=== PATIENT | female | born 1955 | race Caucasian/White ===

== ENCOUNTER 2018-01-18 13:46 | Observation (INO) ==
[2018-01-18 14:35] LABS: Hemoglobin 13.3 g/dL (11.5-15.4); Mean Corpuscular HGB Conc 32.4 g/dL (31.6-35.5); Mean Corpuscular Hemoglobin 25.3 pg (28.0-33.3); Mean Corpuscular Volume 77.9 fL (83.0-100.0); Mean Platelet Volume 10.3 fL (9.4-12.4); Platelet Count 278 K/mcL (140-400); Red Blood Count 5.26 M/mcL (3.82-4.97); Red Cell Distribution Width 13.4 % (11.5-14.5)
[2018-01-18] MEDS ORDERED: Ipratropium/Albuterol Neb 3 ML IH ONE (14:36)
[2018-01-18 14:59] LABS: BUN/Creatinine Ratio 16 (6-26); Blood Urea Nitrogen 11 mg/dL (8-23); Calcium 9.7 mg/dL (8.6-10.3); Carbon Dioxide 25 mEq/L (23-29); Chloride 104 mEq/L (98-107); Glucose 114 mg/dL (70-105); Osmolality,Calculated 288 (280-300); Potassium 3.8 mEq/L (3.5-5.1); Sodium 139 mEq/L (136-145); eGFR For African Americans > 60 (> 60); eGFR For Non-African Americans > 60 (> 60)
--- NOTE | 2018-01-18 14:59 | Emergency Department Note ---
Disposition Clinical Impression: Bronchitis, Elevated troponin Dyspnea Qualifiers: Dyspnea type: unspecified Qualified Code(s): R06.00 - Dyspnea, unspecified Disposition: Admitted As Inpatient Condition: Fair Referrals: Johnny Swartz MD [Primary Care Provider] - Forms: ED Satisfaction Letter Time of Disposition: 16:39 SOB HPI - General Chief Complaint: ED Shortness of Breath/Dyspnea Stated Complaint: tip Time Seen by Provider: 01/18/18 14:15 Source: patient Limitations: no limitations Nursing Notes Reviewed: Yes Vital Signs Reviewed: Yes - History of Present Illness Mrs. Cooley, 62-year-old female, presents from home for evaluation of dyspnea. Onset 3 days ago and progressive. She now has dyspnea with associated chest heaviness at rest. Worse with exertion. Not improved with her home nebulizer or albuterol inhalers. Similar her as prior episode of pneumonia. Patient's history of COPD on home nebulizer and albuterol. No home oxygen. ROS: Positive: As above negative: Arm weakness or tightness, diaphoresis, unusual back pain, - Related Data Home Medications Medication Instructions Recorded Confirmed Ascorbate Calcium [Vitamin C] 500 mg PO DAILY 01/18/18 01/18/18 Biotin 1 mg PO DAILY 01/18/18 01/18/18 Cholecalciferol (D-3) [Vitamin D] 1,000 unit PO DAILY 01/18/18 01/18/18 Escitalopram [Lexapro] 20 mg PO DAILY 01/18/18 01/18/18 Allergies Allergy/AdvReac Type Severity Reaction Status Date / Time No Known Allergies Allergy Verified 01/18/18 16:34 Past Medical History - Past Medical History Medical history: Reports: COPD Psychiatric history: Reports: no psych history ADJUNCT TRAINER history: Reports: no ADJUNCT TRAINER history - Social History Smoking Status: Former smoker Smokeless Tobacco Status: No Alcohol use: Reports: none Drug use: Reports: none Physical Exam - General Limitations: no limitations General appearance: alert, in no apparent distress Course Course Narrative: EKG dated 01/18/18 at 14:09 interpreted as sinus tachycardia with a rate of 113. Normal intervals. Normal axis. Nonspecific ST-T changes. Compared to previous dated 09/22/2016 showed no acute ischemic changes or comparison. Patient has elevation in troponin of 0.04 in the context of no renal dysfunction and no ischemic changes on EKG. Suspect demand ischemia. Aspirin provided. Chest x-ray my review concerning for bronchitis. Will empirically cover with antibiotics. Given patient's cardiac strain likely secondary to her dyspnea, patient's lack of improvement after nebulizer therapy 3-recommend admission for elevated troponin and dyspnea secondary to likely bronchitis. I discussed this with the patient was agreeable with this plan of care. I discussed the patient with the admitting hospitalist, Dr. Vergara, who agrees to accept the patient for continued evaluation and management. Chest X-Ray 01/18/18 14:04 IMPRESSION: No acute process. D/ / Genaro Gayle MD / Genaro Gayle MD Interpreting Provider: Genaro Gayle MD Vital Signs Temperature 98.1 F 01/18/18 13:59 Pulse Rate 100 01/18/18 13:59 Respiratory Rate 22 01/18/18 13:59 Blood Pressure 118/74 01/18/18 13:59 O2 Sat by Pulse Oximetry 95 01/18/18 13:59 Temperature 98.1 F 01/18/18 13:59 Pulse Rate 98 01/18/18 15:41 Respiratory Rate 20 01/18/18 15:41 Blood Pressure 105/62 01/18/18 15:41 O2 Sat by Pulse Oximetry 92 01/18/18 15:41 Oxygen Delivery Oxygen Delivery Room Air Shortness of Breath/Dyspnea - Lab Data Result diagrams: 01/18/18 14:24 01/18/18 14:24 Lab Results 01/18/18 01/18/18 01/18/18 Range/Units 14:24 14:24 14:24 WBC 10.5 (4.3-11.1) K/mcL RBC 5.26 H (3.82-4.97) M/mcL Hgb 13.3 (11.5-15.4) g/dL Hct 41.0 (35.3-44.9) % MCV 77.9 L (83.0-100.0) fL MCH 25.3 L (28.0-33.3) pg MCHC 32.4 (31.6-35.5) g/dL RDW 13.4 (11.5-14.5) % Plt Count 278 (140-400) K/mcL MPV 10.3 (9.4-12.4) fL Sodium 139 (136-145) mEq/L Potassium 3.8 (3.5-5.1) mEq/L Chloride 104 (98-107) mEq/L Carbon Dioxide 25 (23-29) mEq/L BUN 11 (8-23) mg/dL Creatinine 0.68 (0.60-1.20) mg/dL Est GFR ( Amer) > 60 (> 60) Est GFR (Non-Af Amer) > 60 (> 60) BUN/Creatinine Ratio 16 (6-26) Glucose 114 H (70-105) mg/dL Calculated Osmolality 288 (280-300) Lactic Acid 1.4 (0.5-2.2) mmol/L Calcium 9.7 (8.6-10.3) mg/dL Troponin I 0.05 H* (< 0.04) ng/mL B-Natriuretic Peptide (Less than 100) pg/mL 01/18/18 Range/Units 14:24 WBC (4.3-11.1) K/mcL RBC (3.82-4.97) M/mcL Hgb (11.5-15.4) g/dL Hct (35.3-44.9) % MCV (83.0-100.0) fL MCH (28.0-33.3) pg MCHC (31.6-35.5) g/dL RDW (11.5-14.5) % Plt Count (140-400) K/mcL MPV (9.4-12.4) fL Sodium (136-145) mEq/L Potassium (3.5-5.1) mEq/L Chloride (98-107) mEq/L Carbon Dioxide (23-29) mEq/L BUN (8-23) mg/dL Creatinine (0.60-1.20) mg/dL Est GFR ( Amer) (> 60) Est GFR (Non-Af Amer) (> 60) BUN/Creatinine Ratio (6-26) Glucose (70-105) mg/dL Calculated Osmolality (280-300) Lactic Acid (0.5-2.2) mmol/L Calcium (8.6-10.3) mg/dL Troponin I (< 0.04) ng/mL B-Natriuretic Peptide 31 (Less than 100) pg/mL Attestation Statement - Attestation Attestation: I, Brandon Bedoya DO, examined this patient [id number] and my medical decision-making was reviewed with Dr. Sridhar Wilkinson, Resident Physician. I agree with the documented findings, disposition and treatment plan as described except to the extent set forth below. Please see my progress notes for details.
[2018-01-18 15:03] LABS: Troponin I 0.05 ng/mL (< 0.04)
[2018-01-18] MEDS ORDERED: Aspirin 81 MG TAB.CHEW PO ONE (15:06)
--- NOTE | 2018-01-18 15:46 | Emergency Department Note ---
Disposition Clinical Impression: Bronchitis, Elevated troponin Dyspnea Qualifiers: Dyspnea type: unspecified Qualified Code(s): R06.00 - Dyspnea, unspecified Disposition: Admitted As Inpatient Condition: Fair Time of Disposition: 17:11 General Adult HPI - General Chief complaint: ED Shortness of Breath/Dyspnea Stated complaint: tip Time Seen by Provider: 01/18/18 14:15 Source: patient Limitations: no limitations - History of Present Illness Pain Scale: 0 - Related Data Home Medications Medication Instructions Recorded Confirmed Ascorbate Calcium [Vitamin C] 500 mg PO DAILY 01/18/18 01/18/18 Biotin 1 mg PO DAILY 01/18/18 01/18/18 Cholecalciferol (D-3) [Vitamin D] 1,000 unit PO DAILY 01/18/18 01/18/18 Escitalopram [Lexapro] 20 mg PO DAILY 01/18/18 01/18/18 Zolpidem [Ambien] 2.5 - 5 mg PO HS 01/18/18 01/18/18 Allergies Allergy/AdvReac Type Severity Reaction Status Date / Time No Known Allergies Allergy Verified 01/18/18 16:34 Past Medical History - Past Medical History Medical history: Reports: COPD Psychiatric history: Reports: no psych history DAMAGED FREIGHT INSPECTOR history: Reports: no DAMAGED FREIGHT INSPECTOR history - Social History Smoking Status: Former smoker Smokeless Tobacco Status: No Alcohol use: Reports: none Drug use: Reports: none Physical Exam - General Limitations: no limitations General appearance: alert, in no apparent distress Course Vital Signs Temperature 98.1 F 01/18/18 13:59 Pulse Rate 100 01/18/18 13:59 Respiratory Rate 22 01/18/18 13:59 Blood Pressure 118/74 01/18/18 13:59 O2 Sat by Pulse Oximetry 95 01/18/18 13:59 Temperature 98.1 F 01/18/18 13:59 Pulse Rate 98 01/18/18 15:41 Respiratory Rate 20 01/18/18 15:41 Blood Pressure 105/62 01/18/18 15:41 O2 Sat by Pulse Oximetry 92 01/18/18 15:41 Oxygen Delivery Oxygen Delivery Room Air Medical Decision Making - Lab Data Result diagrams: 01/18/18 14:24 01/18/18 14:24 Lab Results 01/18/18 01/18/18 01/18/18 Range/Units 14:24 14:24 14:24 WBC 10.5 (4.3-11.1) K/mcL RBC 5.26 H (3.82-4.97) M/mcL Hgb 13.3 (11.5-15.4) g/dL Hct 41.0 (35.3-44.9) % MCV 77.9 L (83.0-100.0) fL MCH 25.3 L (28.0-33.3) pg MCHC 32.4 (31.6-35.5) g/dL RDW 13.4 (11.5-14.5) % Plt Count 278 (140-400) K/mcL MPV 10.3 (9.4-12.4) fL PT (9.4-12.1) Seconds INR Sodium 139 (136-145) mEq/L Potassium 3.8 (3.5-5.1) mEq/L Chloride 104 (98-107) mEq/L Carbon Dioxide 25 (23-29) mEq/L BUN 11 (8-23) mg/dL Creatinine 0.68 (0.60-1.20) mg/dL Est GFR ( Amer) > 60 (> 60) Est GFR (Non-Af Amer) > 60 (> 60) BUN/Creatinine Ratio 16 (6-26) Glucose 114 H (70-105) mg/dL Calculated Osmolality 288 (280-300) Lactic Acid 1.4 (0.5-2.2) mmol/L Calcium 9.7 (8.6-10.3) mg/dL Troponin I 0.05 H* (< 0.04) ng/mL B-Natriuretic Peptide (Less than 100) pg/mL 01/18/18 01/18/18 Range/Units 14:24 14:24 WBC (4.3-11.1) K/mcL RBC (3.82-4.97) M/mcL Hgb (11.5-15.4) g/dL Hct (35.3-44.9) % MCV (83.0-100.0) fL MCH (28.0-33.3) pg MCHC (31.6-35.5) g/dL RDW (11.5-14.5) % Plt Count (140-400) K/mcL MPV (9.4-12.4) fL PT 11.8 (9.4-12.1) Seconds INR 1.1 Sodium (136-145) mEq/L Potassium (3.5-5.1) mEq/L Chloride (98-107) mEq/L Carbon Dioxide (23-29) mEq/L BUN (8-23) mg/dL Creatinine (0.60-1.20) mg/dL Est GFR ( Amer) (> 60) Est GFR (Non-Af Amer) (> 60) BUN/Creatinine Ratio (6-26) Glucose (70-105) mg/dL Calculated Osmolality (280-300) Lactic Acid (0.5-2.2) mmol/L Calcium (8.6-10.3) mg/dL Troponin I (< 0.04) ng/mL B-Natriuretic Peptide 31 (Less than 100) pg/mL Attestation Statement - Attestation Attestation: I, Brandon Bedoya DO, examined this patient [id number] and my medical decision-making was reviewed with Dr. Sridhar Wilkinson Resident Physician. I agree with the documented findings, disposition and treatment plan as described except to the extent set forth below. Please see my progress notes for details. 62-year-old female presents emergency room for evaluation of shortness of breath and a cough. Patient is a cough for last several days. She does have known COPD does not require oxygen breathing treatments or intervention. Patient has not been ill and has not had any antibiotics in greater than 6 months. Patient denies any travel outside the country. Denies any fevers or chills chest pain headache vision changes nausea vomiting or diarrhea. Patient denies any trauma or injury. She does have a complaint of intermittent cough and some exertional shortness of breath that is consistent with her previous pneumonia and COPD exacerbation. Patient's physical exam is relatively unremarkable. He is atraumatic and reactive oropharynx is patent trachea is midline. No stridor no trismus. Lungs are clear with intermittent coarse breath sounds are heard from the oropharynx. Heart is regular. Abdomen is soft. No signs of pitting edema swelling noted on exam. Patient moves all 4 of her extremities without any issue at this time. Vital signs remain stable. Breathing treatments were given on initial presentation. Chest x-ray EKG and labs will be ordered. BNP and troponin were also be collected. Patient does not have high-risk presentation for COPD exacerbation and may be able to be discharged home with supportive and treatment course is completed. See detailed documentation of the physical exam, medical intervention, medical decision-making and disposition in the resident physician's note. No critical care provider this patient's treatment course at this time. 1535 Patient's troponin is elevated at 0.05. The remainder labs appear to be stable this time. See SCRIPT DEVELOPER and coags are still pending. Aspirin was given. Patient will be treated symptomatically for COPD exacerbation of bronchitis and cardiac strain secondary to the presentation. EKG was reviewed and shows sinus rhythm and is compared to previous EKG on 09/22/16 that shows stable morphology with no acute changes at this time. Patient is otherwise describing no chest pain she just had intermittent shortness of breath and some discomfort when she coughs. Patient will require admission secondary to elevated troponin. Otherwise the patient's workup and evaluation are unremarkable.
[2018-01-18] MEDS ORDERED: Levofloxacin 750 MG/150 ML 750 MG/150 ML BAG IVPB ONE (15:48)
[2018-01-18] MEDS ORDERED: methylPREDNISolone 125 MG/2 ML VIAL IVP ONE (15:48)
[2018-01-18 16:41] LABS: INR 1.1; Prothrombin Time 11.8 Seconds (9.4-12.1)
[2018-01-18] MEDS: Acetaminophen 325 MG TABLET PO PRN (20:21)
--- NOTE | 2018-01-18 20:44 | Internal Med History&Physical ---
Date of Encounter: 01/18/18 Time of Encounter: 20:42 Internal Medicine - H&P: HPI Chief complaint: sob and cough Admitted From: Emergency Dept Plans for Post Hospital Care: Home History of present illness: Ms. Cooley is a 62 year old female Patient with history of COPD, smoking history patient quit a few months ago. Patient presented emergency room with 3 days of progressive shortness of breath with cough sometimes productive of yellow sputum with low-grade fever of temperature 100.8 some chest heaviness when her shortness of breath get worse and was not getting better with breathing treatment patient came into the emergency room and admitted. Chest x ray does not show pneumonia white count is normal Past Med Surg Social Fam HX - Past Medical History Medical history: COPD Psychiatric history: no psych history - Social History Smoking Status: Former smoker Smokeless Tobacco Status: No Alcohol use: none Drug use: none - Family History Father Living Status: Hx Family Cardiac Disorders: Yes (massive [place]) Mother Living Status: Still Living Hx Family Neurologic Disorders: Yes (dementia) Internal Medicine - H&P: Meds Ascorbate Calcium [Vitamin C] 500 mg PO DAILY 01/18/18 [History] Biotin 1 mg PO DAILY 01/18/18 [History] Cholecalciferol (D-3) [Vitamin D] 1,000 unit PO DAILY 01/18/18 [History] Escitalopram [Lexapro] 20 mg PO DAILY 01/18/18 [History] Zolpidem [Ambien] 2.5 - 5 mg PO HS 01/18/18 [History] 3 Allergy/AdvReac Type Severity Reaction Status Date / Time No Known Allergies Allergy Verified 01/18/18 16:34 All Systems PM: A 10-system review of systems was performed and is negative for pertinent findings except as documented above in the HPI. - Constitutional Constitutional: no chills, no fever(s), no night sweats - Constitutional Vitals: Temp Pulse Resp BP Pulse Ox 99.2 F 90 16 109/51 93 01/18/18 19:16 01/18/18 19:16 01/18/18 19:16 01/18/18 19:16 01/18/18 19:16 General appearance: Present: mild distress - Respiratory Respiratory exam: Present: prolonged expiratory phase, rhonchi - GI/Abdominal GI/Abdominal exam: Present: normal bowel sounds, soft, no peritoneal signs. Absent: distended, tenderness - Extremities Exam Extremities exam: Present: warm, radial pulses palpable and symmetrical. Absent : calf tenderness, cyanotic, pedal edema - Neurological Exam Neurological exam: Present: CN II-XII intact, oriented X3, no focal deficits. Absent: pronater drift, facial droop, speech deficit Internal Med - H&P Results - Labs CBC & Chem 7: 01/18/18 14:24 01/18/18 14:24 - Assessment and plan (1) Bronchitis Current Visit: Yes Status: Acute Assessment and plan: Bronchitis chest x-ray does not show pneumonia we will place on Levaquin (2) Elevated troponin Current Visit: Yes Status: Acute Assessment and plan: Patient has some chest pressure with elevated troponin will trend troponin consider nuclear stress test when stable from COPD will consult cardiology for FU evaluation (3) Acute exacerbation of chronic obstructive airways disease Current Visit: No Status: Acute Assessment and plan: COPD exacerbation secondary to bronchitis patient appears stable we will place on steroids and DuoNeb when necessary - Time Spent With Patient Total time spent is greater than 50% in coordination of care (as documented) at patient's floor/unit and/or counseling patient:
[2018-01-18] MEDS ORDERED: Acetaminophen 325 MG TABLET PO PRN (20:47)
[2018-01-18] MEDS ORDERED: Naloxone 0.4 MG/ML INJ IVP PRN (20:47)
[2018-01-18] MEDS ORDERED: Ipratropium/Albuterol Neb 3 ML IH PRN (20:51)
[2018-01-18] MEDS: 0.9 % Sodium Chloride 1,000 ML IVC SCH (21:28)
[2018-01-18] MEDS: MethylPREDNISolone 40 MG/ML VIAL IVP SCH (23:20)
[2018-01-18] MEDS: traMADol 50 MG TABLET PO PRN (23:25)
[2018-01-18] MEDS: Ipratropium/Albuterol Neb 3 ML IH SCH (23:44)
[2018-01-19 03:18] LABS: Basophils % 0.1 %; Hematocrit 37.9 % (35.3-44.9); Hemoglobin 12.3 g/dL (11.5-15.4); Immature Granulocytes % 0.3 % (0-4); Lymphocytes # 0.6 K/mcL (0.6-4.6); Lymphocytes % 8.1 %; Mean Corpuscular HGB Conc 32.5 g/dL (31.6-35.5); Mean Corpuscular Hemoglobin 25.2 pg (28.0-33.3); Mean Corpuscular Volume 77.5 fL (83.0-100.0); Mean Platelet Volume 10.7 fL (9.4-12.4); Monocytes % 0.5 %; Neutrophils # 6.8 K/mcL (1.6-8.9); Platelet Count 265 K/mcL (140-400); Red Blood Count 4.89 M/mcL (3.82-4.97); Red Cell Distribution Width 13.4 % (11.5-14.5)
[2018-01-19] MEDS: Ipratropium/Albuterol Neb 3 ML IH SCH ×6 (03:27→23:09)
[2018-01-19 03:42] LABS: Alanine Aminotransferase 13 Units/L (7-52); Albumin 4.3 g/dL (3.5-5.7); Albumin/Globulin Ratio 1.7 (1.1-2.2); Alkaline Phosphatase 94 Units/L (34-104); Aspartate Amino Transferase 13 Units/L (13-39); BUN/Creatinine Ratio 23 (6-26); Bilirubin,Total 0.4 mg/dL (0.3-1.0); Blood Urea Nitrogen 13 mg/dL (8-23); Calcium 9.2 mg/dL (8.6-10.3); Carbon Dioxide 22 mEq/L (23-29); Chloride 104 mEq/L (98-107); Chol/HDL Ratio 3.1 (0-4.9); Cholesterol 201 mg/dL (< 200); Globulin 2.6 g/dL (2.4-3.5); Glucose 178 mg/dL (70-105); HDL Cholesterol 64 mg/dL (40-59); LDL Cholesterol,Calculated 124 mg/dL (0-99); Magnesium 1.9 mg/dL (1.6-2.6); Osmolality,Calculated 293 (280-300); Platelet Estimate Normal (Normal); Potassium 3.9 mEq/L (3.5-5.1); Sodium 139 mEq/L (136-145); Total Protein 6.9 g/dL (6.4-8.9); Triglycerides 67 mg/dL (< 150); eGFR For African Americans > 60 (> 60); eGFR For Non-African Americans > 60 (> 60)
[2018-01-19] MEDS: traMADol 50 MG TABLET PO PRN ×3 (08:21→23:47)
[2018-01-19] MEDS: (Biotin [Biotin] 1 MG) PO SCH (08:21)
[2018-01-19] MEDS: Ascorbic Acid 500 MG TABLET PO SCH (08:21)
[2018-01-19] MEDS: MethylPREDNISolone 40 MG/ML VIAL IVP SCH ×3 (08:21→18:19)
[2018-01-19] MEDS: Cholecalciferol (D-3) 1,000 UNIT TABLET PO SCH (08:21)
[2018-01-19] MEDS: 0.9 % Sodium Chloride 1,000 ML IVC SCH (08:22)
--- NOTE | 2018-01-19 10:00 | Cardiology Consult Note ---
<Ely Gottlieb - Last Filed: 01/19/18 10:41> Date of Encounter: 01/19/18 Time of Encounter: 10:00 Assessment and Plan (1) Elevated troponin Current Visit: Yes Status: Acute Patient's initial troponin elevated now WNL. We will perform echo to determine patient's disposition or need for further testing. Discussion w patient/family: The assessment and plan as outlined above was discussed with the patient and/or family members who expressed understanding and agreement. All questions were answered. Thank you for involving us in the care of your patient. Please call with any questions. History of Present Illness Consult date: 01/19/18 Consult reason: Chest Pressure History of present illness: Ms. Cooley is a 62 year old female with history of COPD, smoking history patient quit 2 years ago. No history of CAD. Patient does have significant family history of [place] in father at ago 40. Patient presented to the emergency room yesterday with 3 days of progressive shortness of breath with cough. Patient also described some chest heaviness when her shortness of breath. Patient denies palpitations. Patient's initial troponin elevated at .05 and repeats WNL. Patient denies chest pain or pressure at this time. Does state she had an echo and stress test completed greater than 5 years ago and was WNL. Past Med Surg Social Fam HX - Past Medical History Attestation: Yes The following information was validated with the patient. Medical history: COPD Psychiatric history: no psych history - Social History Smoking Status: Former smoker Smokeless Tobacco Status: No Alcohol use: none Drug use: none - Family History Father Living Status: Hx Family Cardiac Disorders: Yes (massive [place]) Mother Living Status: Still Living Hx Family Neurologic Disorders: Yes (dementia) Medications and Allergies Ascorbate Calcium [Vitamin C] 500 mg PO DAILY 01/18/18 [History] Biotin 1 mg PO DAILY 01/18/18 [History] Cholecalciferol (D-3) [Vitamin D] 1,000 unit PO DAILY 01/18/18 [History] Escitalopram [Lexapro] 20 mg PO DAILY 01/18/18 [History] Zolpidem [Ambien] 2.5 - 5 mg PO HS 01/18/18 [History] 3 Allergy/AdvReac Type Severity Reaction Status Date / Time No Known Allergies Allergy Verified 04/26/18 16:34 All Systems Review: The remainder of the systems were reviewed and are negative - Constitutional Constitutional: fever(s), no headache(s) - EENT Eyes: no blurred vision, no loss of vision - Cardiovascular Cardiovascular: as per HPI - Respiratory Respiratory: cough, dyspnea - Gastrointestinal Gastrointestinal: no abdominal pain, no nausea - Musculoskeletal Musculoskeletal: no abnormal gait, no muscle weakness - Integumentary Integumentary: no rash - Neurological Neurological: no abnormal speech, no focal weakness Physical Examination Vital Signs, Last 4 Hours Temp Pulse Resp BP Pulse Ox 01/19/18 07:29 16 95 01/19/18 06:51 97.9 F 98 16 129/68 93 General: Conversant, No Apparent Distress HEENT: Atraumatic, Normocephaly, Mucus Membranes Moist Neck: No JVD, Normal carotid pulses Cardiac: Normal S1 and S2, No Murmur, Other (tachycardic with regular rhythm) Lungs: Other (mild expiratory wheezing) Neuro: Alert and responsive, No focal deficits noted Abdomen: Soft, Non-Tender Skin: No rashes noted on visualized skin Musculoskeletal: No Chest Wall Tenderness Extremities: No Clubbing, No Cyanosis, No Edema, Normal Pulses Results 01/19/18 02:56 01/19/18 02:56 Lab Results 01/18/18 01/19/18 01/19/18 21:21 02:56 02:56 WBC 7.5 Hgb 12.3 Hct 37.9 Plt Count 265 Sodium Potassium Chloride Carbon Dioxide BUN Creatinine Glucose Calcium Magnesium Total Bilirubin AST ALT Alkaline Phosphatase Troponin I < 0.03 < 0.03 01/19/18 02:56 WBC Hgb Hct Plt Count Sodium 139 Potassium 3.9 Chloride 104 Carbon Dioxide 22 L BUN 13 Creatinine 0.56 L Glucose 178 H Calcium 9.2 Magnesium 1.9 Total Bilirubin 0.4 AST 13 ALT 13 Alkaline Phosphatase 94 Troponin I Consult Discharge Plan - Plan Referrals: Johnny Swartz MD [Primary Care Provider] - <Emeka Olmos - Last Filed: 01/19/18 14:27> Date of Encounter: 01/19/18 - Attending Attestation I examined this patient and my medical decision-making was reviewed with the Resident Physician. I agree with the documented findings, disposition and treatment plan as described except to the extent set forth below. Presents with pneumonia and respiratory distress, one troponin is borderline. EKG shows just sinus tachycardia. Will check echo to evaluate LV function but if EF normal will not need further cardiac testing. Assessment and Plan Discussion w patient/family: The assessment and plan as outlined above was discussed with the patient and/or family members who expressed understanding and agreement. All questions were answered. Thank you for involving us in the care of your patient. Please call with any questions. History of Present Illness History of present illness: Ms. Cooley is a 62 year old female All Systems Review: The remainder of the systems were reviewed and are negative Physical Examination Vital Signs, Last 4 Hours Temp Pulse Resp BP Pulse Ox 01/19/18 10:46 98.7 F 100 20 116/51 93 Results 01/19/18 02:56 01/19/18 02:56 Lab Results 01/18/18 01/19/18 01/19/18 21:21 02:56 02:56 WBC 7.5 Hgb 12.3 Hct 37.9 Plt Count 265 Sodium Potassium Chloride Carbon Dioxide BUN Creatinine Glucose Calcium Magnesium Total Bilirubin AST ALT Alkaline Phosphatase Troponin I < 0.03 < 0.03 01/19/18 01/19/18 02:56 09:26 WBC Hgb Hct Plt Count Sodium 139 Potassium 3.9 Chloride 104 Carbon Dioxide 22 L BUN 13 Creatinine 0.56 L Glucose 178 H Calcium 9.2 Magnesium 1.9 Total Bilirubin 0.4 AST 13 ALT 13 Alkaline Phosphatase 94 Troponin I < 0.03
[2018-01-19] MEDS: Acetaminophen 325 MG TABLET PO PRN (15:35)
[2018-01-19] MEDS ORDERED: Levofloxacin 500 MG/100 ML 500 MG/100 ML BAG IVPB SCH (16:00)
--- NOTE | 2018-01-19 17:31 | Internal Med Progress Note ---
Date of Encounter: 01/19/18 Time of Encounter: 10:05 - Assessment and plan (1) Bronchitis Current Visit: Yes Status: Acute Assessment and plan: Pt reports 3 day history of SOB, sometimes productive cough and subjective low grade fevers. Pt states that she tried to increase her breathing treatments at home without relief and she still became worse. Chest xray is negative. Pt is in no distress, lungs are clear and diminished, pt is not requiring supplemental 02. Continue Duonebs Continue Levaquin Continue Solumedrol, will decrease to prednisone 02 prn to maintain sats > 92% (2) Elevated troponin Current Visit: Yes Status: Acute Assessment and plan: Elevated x 1, subsequent levels WNL. Mild, flat, adynamic elevation in the setting of bronchitis. REsolved. Cardiology is following. Echo ordered and pending. Pt denies chest pain. Plan as above. Continue telemetry. (3) Acute exacerbation of chronic obstructive airways disease Current Visit: Yes Status: Acute Assessment and plan: Plan as above. (4) DVT prophylaxis Current Visit: Yes Status: Acute Assessment and plan: observation, pt is ambulatory. - Time Spent With Patient Total time spent is greater than 50% in coordination of care (as documented) at patient's floor/unit and/or counseling patient: less than 15 minutes - Subjective Interval history: Pt was seen and assessed by me at bedside at 1005. She is alert and awake, oriented, pleasant. She states that she has not been feeling well for several days and now is worried about her troponin. She denies chest pain, SOB, n/v, diaphoresis, abdominal pain, constipation, dizziness, headache, or vision changes. Pt will most likely be ready for discharge tomorrow if she continues to be stable. - Constitutional Vitals: Temp Pulse Resp BP Pulse Ox 98.2 F 112 18 147/69 94 01/19/18 16:08 01/19/18 16:08 01/19/18 16:08 01/19/18 16:08 01/19/18 16:08 General appearance: Present: cooperative, mild distress, pleasant, no acute distress, answers questions appropriately - Head Head exam: Present: atraumatic, normal inspection, normocephalic - Eye Eye exam: Present: normal appearance, conjuntiva pink, sclera anicteric - Neck Neck exam general surgery: Present: supple, trachea midline. Absent: lymphadenopathy - Respiratory Respiratory exam: Present: CTAB. Absent: accessory muscle use, rales, rhonchi, wheezes - Cardiovascular Cardiovascular exam: Present: RRR, +S1, +S2. Absent: diastolic murmur, gallop, rubs, systolic murmur, tachycardia - GI/Abdominal GI/Abdominal exam: Present: normal bowel sounds, soft. Absent: distended, hepatomegaly, tenderness - Extremities Exam Extremities exam: Present: normal capillary refill, normal inspection, warm, radial pulses palpable and symmetrical. Absent: calf tenderness, cyanotic, pedal edema, tenderness - Neurological Exam Neurological exam: Present: alert, oriented X3, no focal deficits, pronater drift. Absent: altered, facial droop, speech deficit - Skin Skin exam: Present: dry, intact, normal color, warm. Absent: rash Internal Medicine: Result - Labs CBC & Chem 7: 01/19/18 02:56 01/19/18 02:56 Labs: Short CBC 01/19/18 Range/Units 02:56 WBC 7.5 (4.3-11.1) K/mcL Hgb 12.3 (11.5-15.4) g/dL Hct 37.9 (35.3-44.9) % Plt Count 265 (140-400) K/mcL Neutrophils # 6.8 (1.6-8.9) K/mcL BMP 01/19/18 02:56 Sodium 139 Potassium 3.9 Chloride 104 Carbon Dioxide 22 L BUN 13 Creatinine 0.56 L Glucose 178 H Calcium 9.2 Cardiac Enzymes 01/18/18 01/19/18 01/19/18 Range/Units 21:21 02:56 09:26 Troponin I < 0.03 < 0.03 < 0.03 (< 0.04) ng/mL Liver Function 01/19/18 Range/Units 02:56 Total Bilirubin 0.4 (0.3-1.0) mg/dL AST 13 (13-39) Units/L ALT 13 (7-52) Units/L Alkaline Phosphatase 94 (34-104) Units/L Albumin 4.3 (3.5-5.7) g/dL - ABG Interpretation ABG results: PT/INR, D-dimer PT 11.8 Seconds (9.4-12.1) 01/18/18 14:24 Consult Discharge Plan - Plan Referrals: Johnny Swartz MD [Primary Care Provider] -
[2018-01-20] MEDS ORDERED: GuaiFENesin Liq 200 MG/10 ML UDC PO PRN (02:43)
[2018-01-20] MEDS: Ipratropium/Albuterol Neb 3 ML IH SCH ×3 (03:47→11:13)
[2018-01-20 05:53] LABS: Basophils % 0.1 %; Hematocrit 33.2 % (35.3-44.9); Hemoglobin 10.8 g/dL (11.5-15.4); Lymphocytes % 6.4 %; Mean Corpuscular HGB Conc 32.5 g/dL (31.6-35.5); Mean Corpuscular Hemoglobin 25.3 pg (28.0-33.3); Mean Corpuscular Volume 77.8 fL (83.0-100.0); Mean Platelet Volume 10.8 fL (9.4-12.4); Monocytes # 0.8 K/mcL (0.0-1.3); Monocytes % 5.3 %; Neutrophils # 13.5 K/mcL (1.6-8.9); Platelet Count 259 K/mcL (140-400); Red Blood Count 4.27 M/mcL (3.82-4.97); Red Cell Distribution Width 13.9 % (11.5-14.5); Segmented Neutrophils % 87.2 %
[2018-01-20] MEDS: MethylPREDNISolone 40 MG/ML VIAL IVP SCH (06:08)
[2018-01-20 06:09] LABS: BUN/Creatinine Ratio 29 (6-26); Blood Urea Nitrogen 15 mg/dL (8-23); Calcium 8.8 mg/dL (8.6-10.3); Carbon Dioxide 23 mEq/L (23-29); Chloride 109 mEq/L (98-107); Glucose 162 mg/dL (70-105); Osmolality,Calculated 292 (280-300); Sodium 139 mEq/L (136-145); eGFR For African Americans > 60 (> 60); eGFR For Non-African Americans > 60 (> 60)
--- NOTE | 2018-01-20 08:00 | Event Note ---
Date of Encounter: 01/20/18 Time of Encounter: 07:59 - Cardiology Event Note TTE with preserved, LVEF. Per previous cardiac note, no further cardiac testing warranted. CArdiology will sign off and will follow in outpatient setting.
[2018-01-20] MEDS: Ascorbic Acid 500 MG TABLET PO SCH (09:22)
[2018-01-20] MEDS: Cholecalciferol (D-3) 1,000 UNIT TABLET PO SCH (09:22)
[2018-01-20] MEDS: (Biotin [Biotin] 1 MG) PO SCH (09:23)
--- NOTE | 2018-01-20 10:54 | Discharge Summary ---
- NOTES TO OUTPATIENT PROVIDER Notes to Outpatient Provider: Pt has been treated for COPD/bronchitis and was sent home with rx for steroid taper, antibiotic, Advair diskus inhaler, and Mucinex. Prior to discharge pt had a few episodes of loose stool along with leukocytosis. Pt was insistent that she go home. Stool was collected and sent to lab but the specimen was rejected due to it not being loose enough. Recommend pt have close follow up after discharge. Orders not resulted at time of discharge: Pending orders 01/20/18 11:30 Complete Blood Count [HEME] Routine Date of Encounter: 01/20/18 Time of Encounter: 09:30 - Discharge Diagnosis (1) Bronchitis Priority: Primary Status: Acute Assessment and Plan: Pt states that she is feeling better. Pt has been afebrile, denies chills, and states that cough has improved. Chest xray was negative. Pt is in no distress, lungs remain clear and diminished , she is on room air. Pt has duonebs at home, denies needing refills. She has requested a refill on Advair, she will be sent home with steroid taper, antibiotics, and Mucinex for cough. (2) Elevated troponin Priority: Secondary Status: Acute Assessment and Plan: Elevated x 1, subsequent levels WNL. Mild, flat, adynamic elevation in the setting of bronchitis. Echo revealed pEF with no significant valvular dysfunction and mild LVDD. Cardiology evaluated pt and have signed off, will follow in clinic. Pt denies chest pain. (3) Acute exacerbation of chronic obstructive airways disease Priority: Secondary Status: Acute Assessment and Plan: Plan as above for bronchitis. (4) DVT prophylaxis Priority: Secondary Status: Acute Assessment and Plan: Observation status. Pt has been ambulatory in the room. Hospital course: Ms. Cooley is a 62 year old female with PMH of COPD, smoking. She presented with SOB and cough, was treated for AECOPD and acute bronchitis. She was stable throughout admission and was treated with Levaquin, steroids, and duoneb treatments. Pt did not require supplemental 02. She remained afebrile with mild leukocytosis that was likely due to IV steroid use. Pt reported loose stools today, 3 episodes since 0500. Abd is soft and non-tender. Specimen sent to lab and rejected due to it not being loose enough. Pt states that she wants to go home and that the diarrhea is due to the fact that she had not eaten for several days then went right back to eating regular food. She has been instructed to return if she has any problems or worsening symptoms. She had no other signs of infection. Pt wishes to go home and states that she can do better at home than here. Nurse did get final set of vitals that were WNL but were not recorded in the chart. Pt is appropriate and stable for discharge. Discharge discussed with: patient - Time Spent with Patient Total time spent providing and/or coordinating discharge services: Less than 30 minutes - Discharge Medications Prescriptions: Fluticasone/Salmeterol [Advair 250-50 Diskus] 1 each IH DAILY #1 blst.w.dev GuaiFENesin ER [Mucinex] 600 mg PO BID PRN #30 tbbp.12hr PRN Reason: Cough Levofloxacin [Levaquin] 750 mg PO DAILY #5 tablet predniSONE [PredniSONE] 10 mg PO DAILY #31 tablet Home Medications: Ascorbate Calcium [Vitamin C] 500 mg PO DAILY 01/18/18 [History] Biotin 1 mg PO DAILY 01/18/18 [History] Cholecalciferol (D-3) [Vitamin D] 1,000 unit PO DAILY 01/18/18 [History] Escitalopram [Lexapro] 20 mg PO DAILY 01/18/18 [History] Zolpidem [Ambien] 2.5 - 5 mg PO HS 01/18/18 [History] Fluticasone/Salmeterol [Advair 250-50 Diskus] 1 each IH DAILY #1 blst.w.dev [Rx] GuaiFENesin ER [Mucinex] 600 mg PO BID PRN #30 tbbp.12hr 01/20/18 [Rx] Levofloxacin [Levaquin] 750 mg PO DAILY #5 tablet 01/20/18 [Rx] predniSONE [PredniSONE] 10 mg PO DAILY #31 tablet 01/20/18 [Rx] Allergies/Adverse Reactions: 3 Allergy/AdvReac Type Severity Reaction Status Date / Time No Known Allergies Allergy Verified 01/18/18 16:34 Date of admission: 01/18/18 17:02 Primary care physician: Johnny Swartz Consults: 01/18/18 20:49 Consult to Cardiology [CONS] Routine Comment: Consulting Provider: Cardiology Mary Reason for Consult: chest pain,positive troponin Call Completed: No Discharging clinician: Ya Falk Anticipated date of discharge: 01/20/18 - Constitutional Vitals: Temp Pulse Resp BP Pulse Ox 97.8 F 89 16 140/71 95 01/20/18 07:40 01/20/18 07:40 01/20/18 07:40 01/20/18 07:40 01/20/18 07:40 General appearance: Present: cooperative, mild distress, pleasant, no acute distress, answers questions appropriately - Head Head exam: Present: atraumatic, normal inspection, normocephalic - Eye Eye exam: Present: conjuntiva pink, sclera anicteric - Neck Neck exam general surgery: Present: normal inspection, supple, trachea midline. Absent: lymphadenopathy, tenderness - Respiratory Respiratory exam: Present: decreased breath sounds, CTAB. Absent: accessory muscle use, rales, respiratory distress, rhonchi, wheezes - Cardiovascular Cardiovascular exam: Present: RRR, +S1, +S2. Absent: diastolic murmur, gallop, rubs, systolic murmur - GI/Abdominal GI/Abdominal exam: Present: normal bowel sounds, soft. Absent: distended, hepatomegaly, tenderness - Extremities Exam Extremities exam: Present: normal capillary refill, normal inspection, warm, radial pulses palpable and symmetrical. Absent: calf tenderness, cyanotic, pedal edema, tenderness - Neurological Exam Neurological exam: Present: alert, oriented X3, no focal deficits. Absent: facial droop, speech deficit - Skin Skin exam: Present: dry, intact, normal color, warm. Absent: rash - Patient Status Disposition: Home, Self-Care Condition: Fair Functional capacity at discharge: independent ambulation Overall status at discharge: patient is progressing back to baseline - Discharge Instructions Follow Up With: Johnny Swartz MD [Primary Care Provider] - (Please call office to make a follow up appointment within 7-10 days.) Additional Instructions: Follow up with your PCP in the next 3-5 days for a recheck. Return to the ER if your symptoms return or worsen. Take your medications as directed, your new prescriptions are at your pharmacy. Return to your normal activities and diet as tolerated. If you are still having loose stools by tomorrow night, see PCP or go to urgent care Monday a.m. If you have a fever, bloody stools, severe cramping, you are unable to eat or drink due to nausea, vomiting, or diarrhea, or have yellow, mucous-like stools , return to the ER IMMEDIATELY! - Diet and Activity Activity: increase activity as tolerated Diet: advance to your usual diet
[2018-01-20 11:29] LABS: Basophils % 0.1 %; Hematocrit 35.5 % (35.3-44.9); Hemoglobin 11.7 g/dL (11.5-15.4); Immature Granulocytes % 1.4 % (0-4); Immature Platelets 2.6 % (1.1-6.1); Lymphocytes # 0.9 K/mcL (0.6-4.6); Lymphocytes % 5.2 %; Mean Corpuscular Hemoglobin 25.9 pg (28.0-33.3); Mean Corpuscular Volume 78.7 fL (83.0-100.0); Mean Platelet Volume 10.6 fL (9.4-12.4); Monocytes # 0.7 K/mcL (0.0-1.3); Monocytes % 4.3 %; Neutrophils # 15.4 K/mcL (1.6-8.9); Platelet Count 297 K/mcL (140-400); Red Blood Count 4.51 M/mcL (3.82-4.97); Red Cell Distribution Width 14.1 % (11.5-14.5)
[2018-01-20 15:02] VITALS: BP 137/68
--- NOTE | 2018-01-20 15:39 | Electrocardiograph Report ---
[place] [id number] Test Date: 2018-01-18 Pat Name: Karuna Cooley Department: 104 Room: 3B46 Gender: F Placing Judge: AMANDA : 1955 Requested By: Brandon Bedoya Order Number: [id number] Reading MD: Rosette Olmos Measurements Intervals [place] Rate: 113 P: 83 ID: 140 QRS: -20 QRSD: 62 T: 49 QT: 343 QTc: 410 Interpretive Statements SINUS TACHYCARDIA POSSIBLE LEFT ATRIAL ENLARGEMENT ABNORMAL RHYTHM ECG Electronically Signed On 01-20-2018 15:37:35 EDT by Rosette Olmos
== END 2018-01-20 16:30 | disposition home or self-care (01) ==
LOC: 3BNU 13:46 → EMEROO 13:46 → 3BNU 17:37
PROVIDERS: ADMIT Student in an Organized Health Care Education/Training Program; ATTEND Student in an Organized Health Care Education/Training Program

== ENCOUNTER 2019-01-02 12:49 | Inpatient (IN) ==
--- NOTE | 2019-01-02 13:58 | Emergency Department Note ---
Disposition Clinical Impression: Bilateral leg numbness Back pain Qualifiers: Back pain location: low back pain Chronicity: acute Back pain laterality: midline Sciatica presence: with sciatica Sciatica laterality: bilateral sciatica Qualified Code(s): M54.42 - Lumbago with sciatica, left side Lumbar canal stenosis Qualifiers: Neurogenic claudication status: with neurogenic claudication Qualified Code(s): M48.062 - Spinal stenosis, lumbar region with neurogenic claudication Disposition: Admitted As Inpatient General Adult [facility] - General Chief complaint: ED Back Pain/Injury Stated complaint: BACK PAIN Time Seen by Provider: 01/02/19 13:11 Source: patient - History of Present Illness Pain Scale: 8 - Related Data Home Medications Medication Instructions Recorded Confirmed RX: Ascorbate Calcium [Vitamin C] 500 mg PO DAILY 01/18/18 01/02/19 RX: Cholecalciferol (D-3) [Vitamin 1,000 unit PO DAILY 01/18/18 01/02/19 D] RX: Zolpidem [Ambien] 2.5 - 5 mg PO HS 01/18/18 01/02/19 Duloxetine HCl [Cymbalta] 100 mg PO DAILY 01/02/19 01/02/19 Pregabalin [Lyrica] 100 mg PO BID 01/02/19 01/02/19 Previous Rx's Medication Instructions Recorded Fluticasone/Salmeterol [Advair 1 each IH DAILY #1 blst.w.dev 01/20/18 250-50 Diskus] Allergies Allergy/AdvReac Type Severity Reaction Status Date / Time No Known Allergies Allergy Verified 01/02/19 13:01 Past Medical History - Past Medical History Medical history: Reports: COPD Psychiatric history: Reports: no psych history SU[employer]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 history - Social History Smoking Status: Former smoker Smokeless Tobacco Status: No Alcohol use: Reports: none Drug use: Reports: none Course Vital Signs Temperature 97.9 F 01/02/19 13:01 Pulse Rate 123 01/02/19 13:01 Respiratory Rate 16 01/02/19 13:01 Blood Pressure 128/82 01/02/19 13:01 O2 Sat by Pulse Oximetry 95 01/02/19 13:01 Temperature 98.2 F 01/02/19 23:54 Pulse Rate 79 01/02/19 23:54 Respiratory Rate 17 01/02/19 23:54 Blood Pressure 118/69 01/02/19 23:54 O2 Sat by Pulse Oximetry 94 01/02/19 23:54 Oxygen Delivery Oxygen Delivery Room Air Medical Decision Making - Lab Data Result diagrams: 01/02/19 13:53 01/02/19 13:53 Lab Results 01/02/19 01/02/19 01/02/19 Range/Units 13:53 13:53 13:53 WBC 7.2 (4.3-11.1) K/mcL RBC 5.42 H (3.82-4.97) M/mcL Hgb 13.6 (11.5-15.4) g/dL Hct 44.1 (35.3-44.9) % MCV 81.4 L (83.0-100.0) fL MCH 25.1 L (28.0-33.3) pg MCHC 30.8 L (31.6-35.5) g/dL RDW 15.6 H (11.5-14.5) % Plt Count 255 (140-400) K/mcL MPV 10.6 (9.4-12.4) fL Immature Gran % 0.7 (0-4) % Seg Neutrophils % 62.5 % Lymphocytes % 26.9 % Monocytes % 9.5 % Eosinophils % 0.0 % Basophils % 0.4 % Neutrophils # 4.5 (1.6-8.9) K/mcL Lymphocytes # 1.9 (0.6-4.6) K/mcL Monocytes # 0.7 (0.0-1.3) K/mcL Eosinophils # 0.0 (0.0-0.6) K/mcL Basophils # 0.0 (0.0-0.2) K/mcL PT 10.1 (9.4-12.1) Seconds INR 0.9 APTT 31.4 (26.0-36.0) Seconds Sodium 142 (136-145) mEq/L Potassium 4.1 (3.5-5.1) mEq/L Chloride 106 (98-107) mEq/L Carbon Dioxide 25 (23-29) mEq/L BUN 23 (8-23) mg/dL Creatinine 0.74 (0.60-1.20) mg/dL Est GFR ( Amer) > 60 (> 60) Est GFR (Non-Af Amer) > 60 (> 60) BUN/Creatinine Ratio 31 H (6-26) Glucose 117 H (70-105) mg/dL Calculated Osmolality 299 (280-300) Calcium 9.2 (8.6-10.3) mg/dL Troponin I < 0.03 (< 0.04) ng/mL Vitamin B12 (250-1100) pg/mL Folate (3.0-16.0) ng/mL 01/02/19 Range/Units 13:53 WBC (4.3-11.1) K/mcL RBC (3.82-4.97) M/mcL Hgb (11.5-15.4) g/dL Hct (35.3-44.9) % MCV (83.0-100.0) fL MCH (28.0-33.3) pg MCHC (31.6-35.5) g/dL RDW (11.5-14.5) % Plt Count (140-400) K/mcL MPV (9.4-12.4) fL Immature Gran % (0-4) % Seg Neutrophils % % Lymphocytes % % Monocytes % % Eosinophils % % Basophils % % Neutrophils # (1.6-8.9) K/mcL Lymphocytes # (0.6-4.6) K/mcL Monocytes # (0.0-1.3) K/mcL Eosinophils # (0.0-0.6) K/mcL Basophils # (0.0-0.2) K/mcL PT (9.4-12.1) Seconds INR APTT (26.0-36.0) Seconds Sodium (136-145) mEq/L Potassium (3.5-5.1) mEq/L Chloride (98-107) mEq/L Carbon Dioxide (23-29) mEq/L BUN (8-23) mg/dL Creatinine (0.60-1.20) mg/dL Est GFR ( Amer) (> 60) Est GFR (Non-Af Amer) (> 60) BUN/Creatinine Ratio (6-26) Glucose (70-105) mg/dL Calculated Osmolality (280-300) Calcium (8.6-10.3) mg/dL Troponin I (< 0.04) ng/mL Vitamin B12 513 (250-1100) pg/mL Folate 14.9 (3.0-16.0) ng/mL Attestation Statement - Attestation Attestation: Resident Attestation: I examined this patient and my medical decision making was reviewed with the Resident Physician. I agree with the documented findings, disposition and treatment plan as described except to the extent set forth below. We independently had [id number] contact with the patient. Patient presented for evaluation of bilateral legs giving out. Patient has had increasing weakness in her legs. Patient has been seen by pain management. Patient has had injections in her back. Patient has not had an MRI. Given the fact the patient has had injections and now has decreased ability to ambulate. Patient will undergo further MRI for evaluation. Patient does have symmetric strength and sensation. Strength is mildly decreased but still 5 out of 5. Patient has not had any fevers, urinary incontinence, bowel incontinence.
--- NOTE | 2019-01-02 13:58 | Emergency Department Note ---
Disposition Clinical Impression: Bilateral leg numbness Back pain Qualifiers: Back pain location: low back pain Chronicity: acute Back pain laterality: midline Sciatica presence: with sciatica Sciatica laterality: bilateral sciatica Qualified Code(s): M54.42 - Lumbago with sciatica, left side; M54.41 - Lumbago with sciatica, right side Lumbar canal stenosis Qualifiers: Neurogenic claudication status: with neurogenic claudication Qualified Code(s): M48.062 - Spinal stenosis, lumbar region with neurogenic claudication Disposition: Admitted As Inpatient Referrals: Johnny Swartz MD [Primary Care Provider] - Forms: ED Satisfaction Letter General Adult HPI - General Chief complaint: ED Back Pain/Injury Stated complaint: BACK PAIN Time Seen by Provider: 01/02/19 13:11 Source: patient, family Mode of arrival: private vehicle Nursing Notes Reviewed: Yes Vital Signs Reviewed: Yes - History of Present Illness HPI Narrative: Patient is a 63-year-old female with past medical history including COPD, takes medications including Cymbalta and Lyrica, presenting with chief complaint of lower back pain and numbness and tingling in bilateral lower extremities for the past 2-3 weeks. Patient states a month ago she last received an injection in her lower back by pain management for bilateral hip pain. She states she is no longer having hip pain. However, she is complaining of constant lower lumbosacral back pain, left greater than right. She also complains of bilateral lower extremity numbness and tingling from her thighs into her feet. She states she has had several episodes where her legs have gave out on her and she has fallen. She states at times when she bends over she is unable to stand up. She has never experienced this before. She denies any other trauma. She denies fevers, chills, travel outside of the [place], tick bites. She also complains of her "head feeling floaty". Her states her attentions pain has been less. She also complains of generalized tiredness. She denies chest pain, shortness of breath, decreased appetite, abdominal pain, nausea, vomiting, urinary incontinence, urinary retention, perianal numbness, changes in bowel. Pain Scale: 8 - Related Data Home Medications Medication Instructions Recorded Confirmed Ascorbate Calcium [Vitamin C] 500 mg PO DAILY 01/18/18 01/18/18 Biotin 1 mg PO DAILY 01/18/18 01/18/18 Cholecalciferol (D-3) [Vitamin D] 1,000 unit PO DAILY 01/18/18 01/18/18 Escitalopram [Lexapro] 20 mg PO DAILY 01/18/18 01/18/18 Zolpidem [Ambien] 2.5 - 5 mg PO HS 01/18/18 01/18/18 Previous Rx's Medication Instructions Recorded Fluticasone/Salmeterol [Advair 1 each IH DAILY #1 blst.w.dev 01/20/18 250-50 Diskus] GuaiFENesin ER [Mucinex] 600 mg PO BID PRN #30 tbbp.12hr 01/20/18 Levofloxacin [Levaquin] 750 mg PO DAILY #5 tablet 01/20/18 predniSONE [PredniSONE] 10 mg PO DAILY #31 tablet 01/20/18 Lidocaine Patch [Lidoderm 5% patch] 1 each TP DAILY PRN #20 adh..patch 11/17/18 methylPREDNISolone [Medrol] 1 each PO DAILY #1 pack 11/17/18 Allergies Allergy/AdvReac Type Severity Reaction Status Date / Time No Known Allergies Allergy Verified 01/02/19 13:01 All systems ED: reviewed and negative except as stated. Review of Systems: As Per HPI Constitutional: Denies: fever, chills Eyes: Denies: vision change ENT ED: Denies: throat pain Cardiovascular: Denies: chest pain, palpitations Respiratory: Denies: cough, dyspnea Gastrointestinal: Denies: abdominal pain, nausea, vomiting, diarrhea, hematochezia Genitourinary: Denies: dysuria Musculoskeletal: Reports: back pain. Denies: neck pain Neurological: Reports: weakness, numbness, paresthesias. Denies: headache, confusion Past Medical History - Past Medical History Attestation: Yes The following information was validated with the patient. 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 Absent: nystagmus - Neck Neck exam: Present: normal inspection, full ROM, trachea midline - Chest Chest inspection: Present: normal inspection, symmetric chest wall rise - Respiratory Respiratory exam: Present: normal lung sounds bilaterally. Absent: respiratory distress, wheezes - Cardiovascular Cardiovascular exam: Present: normal rhythm, tachycardia, normal heart sounds, other (Bilateral radial pulses and dorsalis pedis pulses are palpable and equal) - Abdominal Exam Abdominal exam: Present: soft, Non-Tender, normal bowel sounds. Absent: distention, guarding, rebound, rigidity - Extremities Exam Extremities exam: Present: normal inspection, full ROM, normal capillary refill, other (lifting the left lower extremity off the bed reproduces the left lower back pain). Absent: pedal edema, calf tenderness - Back Exam Back exam: Present: tenderness (tenderness midline lumbosacral region with tenderness L>R paraspinal region) - Neurological Exam Neurological exam: Present: alert, oriented X3, CN II-XII intact, other (L patellar reflex 2/4 and R patellar reflex 3/4) - Expanded Neurological Exam Patient oriented to: Present: person, place, time Speech: Present: fluid speech Cerebellar function: finger to nose: Normal, heel to maki: Normal Motor strength - LUE: 5/5 Motor strength - RUE: 5/5 Motor strength - LLE: 5/5 Motor strength - RLE: 5/5 Upper motor neuron exam: wil neglect: Absent bilaterally, pronator drift: Absent bilaterally Sensory exam upper extremity: light touch: Normal Sensory exam lower extremity: light touch: Normal, 2 point discrimination: Normal - Psychiatric Psychiatric exam: Present: normal affect, normal mood - Skin Skin exam: Present: warm, dry, intact Course Vital Signs Temperature 97.9 F 01/02/19 13:01 Pulse Rate 123 01/02/19 13:01 Respiratory Rate 16 01/02/19 13:01 Blood Pressure 128/82 01/02/19 13:01 O2 Sat by Pulse Oximetry 95 01/02/19 13:01 Temperature 97.9 F 01/02/19 13:01 Pulse Rate 102 01/02/19 15:46 Respiratory Rate 18 01/02/19 15:46 Blood Pressure 102/50 01/02/19 15:46 O2 Sat by Pulse Oximetry 95 01/02/19 15:46 Oxygen Delivery Oxygen Delivery Room Air Medical Decision Making - MDM Narrative Medical decision making narrative: Patient presenting with lower back pain with numbness and tingling into charleen ateral lower extremities and both legs giving out on her during ambulation on several occasions. She has history of injections into her spine from pain management, most recently about a month ago. Patient has no sensory deficits and strength is equal on neurologic examination. Right patellar reflex is hyperreflexive. As the patient has been having bilateral lower extremity weakness and several locations where her legs have given out on her causing falls, poor outpatient follow-up, will obtain MRI lumbar spine with IV contrast. We will evaluate for acute disc pathology and rule out hematoma as the patient had recent spinal injection as well. We will also obtain pelvic x-ray as the patient has history of sacroiliitis. Patient also has sinus tachycardia. She denies chest pain and shortness of breath. We will obtain EKG, chest x-ray, CBC, BMP. We will also obtain folate and vitamin B12 levels secondary to the tingling and patient's tiredness. 14:50 EKG shows no acute ischemic changes. It does show sinus tachycardia. She has no chest pain or shortness of breath. Chest x-ray shows no acute cardiopulmonary process. Pelvic x-ray shows no acute pelvis abnormality. Troponin normal. Vitamin and B12 normal. Electrolytes normal. Pending MRI at this time. 17:35 MRI results reviewed. There is severe spinal canal stenosis at L4-L5 with grade 1 anterolisthesis with central and left central disc herniation and mass effect on nerve roots at L4-L5. Ambulated the patient. Patient states that her legs feel like Jell-O. Her gait is abnormal compared to normal. Will discuss with Dr. Burgos, spinal surgery. 18:[address] Mckoy who recommends admission and will evaluate the patient in the am and may require possible surgery. Will page hospitalist for admission. 18:[address] Alberts, Hospitalist who accepts admission. Will admit to 3NE if bed available. - Medical Records Medical records reviewed: Yes I reviewed the patient's medical records. - Lab Data Lab results reviewed: Yes I reviewed the patient's lab results. Result diagrams: 01/02/19 13:53 01/02/19 13:53 Lab Results 04/07/1301/02/19 01/02/19 Range/Units 13:53 13:53 13:53 WBC 7.2 (4.3-11.1) K/mcL RBC 5.42 H (3.82-4.97) M/mcL Hgb 13.6 (11.5-15.4) g/dL Hct 44.1 (35.3-44.9) % MCV 81.4 L (83.0-100.0) fL MCH 25.1 L (28.0-33.3) pg MCHC 30.8 L (31.6-35.5) g/dL RDW 15.6 H (11.5-14.5) % Plt Count 255 (140-400) K/mcL MPV 10.6 (9.4-12.4) fL Immature Gran % 0.7 (0-4) % Seg Neutrophils % 62.5 % Lymphocytes % 26.9 % Monocytes % 9.5 % Eosinophils % 0.0 % Basophils % 0.4 % Neutrophils # 4.5 (1.6-8.9) K/mcL Lymphocytes # 1.9 (0.6-4.6) K/mcL Monocytes # 0.7 (0.0-1.3) K/mcL Eosinophils # 0.0 (0.0-0.6) K/mcL Basophils # 0.0 (0.0-0.2) K/mcL PT 10.1 (9.4-12.1) Seconds INR 0.9 APTT 31.4 (26.0-36.0) Seconds Sodium 142 (136-145) mEq/L Potassium 4.1 (3.5-5.1) mEq/L Chloride 106 (98-107) mEq/L Carbon Dioxide 25 (23-29) mEq/L BUN 23 (8-23) mg/dL Creatinine 0.74 (0.60-1.20) mg/dL Est GFR ( Amer) > 60 (> 60) Est GFR (Non-Af Amer) > 60 (> 60) BUN/Creatinine Ratio 31 H (6-26) Glucose 117 H (70-105) mg/dL Calculated Osmolality 299 (280-300) Calcium 9.2 (8.6-10.3) mg/dL Troponin I < 0.03 (< 0.04) ng/mL Vitamin B12 (250-1100) pg/mL Folate (3.0-16.0) ng/mL 01/02/19 Range/Units 13:53 WBC (4.3-11.1) K/mcL RBC (3.82-4.97) M/mcL Hgb (11.5-15.4) g/dL Hct (35.3-44.9) % MCV (83.0-100.0) fL MCH (28.0-33.3) pg MCHC (31.6-35.5) g/dL RDW (11.5-14.5) % Plt Count (140-400) K/mcL MPV (9.4-12.4) fL Immature Gran % (0-4) % Seg Neutrophils % % Lymphocytes % % Monocytes % % Eosinophils % % Basophils % % Neutrophils # (1.6-8.9) K/mcL Lymphocytes # (0.6-4.6) K/mcL Monocytes # (0.0-1.3) K/mcL Eosinophils # (0.0-0.6) K/mcL Basophils # (0.0-0.2) K/mcL PT (9.4-12.1) Seconds INR APTT (26.0-36.0) Seconds Sodium (136-145) mEq/L Potassium (3.5-5.1) mEq/L Chloride (98-107) mEq/L Carbon Dioxide (23-29) mEq/L BUN (8-23) mg/dL Creatinine (0.60-1.20) mg/dL Est GFR ( Amer) (> 60) Est GFR (Non-Af Amer) (> 60) BUN/Creatinine Ratio (6-26) Glucose (70-105) mg/dL Calculated Osmolality (280-300) Calcium (8.6-10.3) mg/dL Troponin I (< 0.04) ng/mL Vitamin B12 513 (250-1100) pg/mL Folate 14.9 (3.0-16.0) ng/mL - Radiology Data Radiology results reviewed: Yes I reviewed the patient's radiology results. - EKG Data EKG #1 EKG attestation: Yes I reviewed and interpreted this EKG. EKG results narrative: EKG obtained at 1258 shows sinus tachycardia with heart rate 123, ID interval 132, QRS duration 69, QTC 372, no ST elevation or depression. Attestation Statement - Attestation Attestation: Resident Attestation: I examined this patient and my medical decision making was reviewed with the Resident Physician. I agree with the documented findings, disposition and treatment plan as described except to the extent set forth below. We independently had [id number] contact with the patient. Patient presented for evaluation of bilateral legs giving out. Patient has had increasing weakness in her legs. Patient has been seen by pain management. Patient has had injections in her back. Patient has not had an MRI. Given the fact the patient has had injections and now has decreased ability to ambulate. Patient will undergo further MRI for evaluation. Patient does have symmetric strength and sensation. Strength is mildly decreased but still 5 out of 5. Patient has not had any fevers, urinary incontinence, bowel incontinence.
[2019-01-02] MEDS ORDERED: Gadolinium Contrast Agent (WT Based) IV PRN (14:08)
[2019-01-02] MEDS ORDERED: 0.9 % Sodium Chloride 1,000 ML IVC ONE (14:09)
[2019-01-02 14:20] LABS: Hematocrit 44.1 % (35.3-44.9); Hemoglobin 13.6 g/dL (11.5-15.4); Immature Granulocytes % 0.7 % (0-4); Lymphocytes % 26.9 %; Mean Corpuscular HGB Conc 30.8 g/dL (31.6-35.5); Mean Corpuscular Hemoglobin 25.1 pg (28.0-33.3); Mean Corpuscular Volume 81.4 fL (83.0-100.0); Mean Platelet Volume 10.6 fL (9.4-12.4); Monocytes % 9.5 %; Platelet Count 255 K/mcL (140-400); Red Blood Count 5.42 M/mcL (3.82-4.97); Red Cell Distribution Width 15.6 % (11.5-14.5); Segmented Neutrophils % 62.5 %
[2019-01-02 14:21] LABS: Basophils % 0.4 %; INR 0.9; Lymphocytes # 1.9 K/mcL (0.6-4.6); Monocytes # 0.7 K/mcL (0.0-1.3); Neutrophils # 4.5 K/mcL (1.6-8.9); Prothrombin Time 10.1 Seconds (9.4-12.1)
[2019-01-02 14:23] LABS: Activated Partial Thrombo Time 31.4 Seconds (26.0-36.0)
[2019-01-02 14:35] LABS: BUN/Creatinine Ratio 31 (6-26); Blood Urea Nitrogen 23 mg/dL (8-23); Calcium 9.2 mg/dL (8.6-10.3); Carbon Dioxide 25 mEq/L (23-29); Chloride 106 mEq/L (98-107); Glucose 117 mg/dL (70-105); Osmolality,Calculated 299 (280-300); Potassium 4.1 mEq/L (3.5-5.1); Sodium 142 mEq/L (136-145); Troponin I < 0.03 ng/mL (< 0.04); eGFR For Non-African Americans > 60 (> 60)
[2019-01-02 14:58] LABS: Folate 14.9 ng/mL (3.0-16.0)
[2019-01-02] MEDS ORDERED: *HR* OxyCODONE Immed Rel 5 MG TABLET PO PRN (18:38)
[2019-01-02] MEDS ORDERED: traMADol 50 MG TABLET PO PRN (20:17)
[2019-01-02] MEDS ORDERED: Naloxone 0.4 MG/ML INJ IVP PRN (20:17)
[2019-01-02] MEDS ORDERED: Acetaminophen 325 MG TABLET PO PRN (20:17)
--- NOTE | 2019-01-02 21:06 | Internal Med History&Physical ---
Date of Encounter: 01/02/19 Time of Encounter: 21:08 Internal Medicine - H&P: HPI Chief complaint: back pain Admitted From: Home Plans for Post Hospital Care: Home History of present illness: Karuna Cooley is a 63-year-old woman with COPD he quit smoking 2 years ago who has been dealing with lower back pain and paresthesias in her lower extremities for many months at some point receiving injections to control the pain. She says that of recent she has been having ambulatory difficulty as her legs give out and she falls to the floor. Sometimes if she is on the floor for some other reason she has difficulty getting up and needs assistance. There was no inciting trauma and no other associated symptoms reported. She denies urinary incontinence or retention, loss of anal sphincter control,. No numb ness, changes in her bowel habits. She feels as though her lower back pain and lower extremity numbness has been worsening in spite of taking pregabalin. Lumbar spine MRI was done and revealed severe spinal canal stenosis at L4-5 with multiple disc herniations and mass effect on the nerve roots. Spine surgery has been consulted and she is admitted for further evaluation. Past Med Surg Social Fam HX - Past Medical History Medical history: COPD Additional medical history: hemorroids Psychiatric history: no psych history - Past Surgical History Additional surgical history: tubal. knee surgery, shoulder surgery - Social History Smoking Status: Former smoker Smokeless Tobacco Status: No Alcohol use: none Drug use: none - Family History Father Living Status: Cause of : 40 Hx Family Cardiac Disorders: Yes (Emphysema) Mother Living Status: Still Living Hx Family Cardiac Disorders: Yes (Stroke) Hx Family Neurologic Disorders: Yes (dementia) Internal Medicine - H&P: Meds Ascorbate Calcium [Vitamin C] 500 mg PO DAILY 01/18/18 [History] Cholecalciferol (D-3) [Vitamin D] 1,000 unit PO DAILY 01/18/18 [History] Zolpidem [Ambien] 2.5 - 5 mg PO HS 01/18/18 [History] Fluticasone/Salmeterol [Advair 250-50 Diskus] 1 each IH DAILY #1 blst.w.dev 01/20/18 [Rx] Duloxetine HCl [Cymbalta] 100 mg PO DAILY 01/02/19 [History] Pregabalin [Lyrica] 100 mg PO BID 01/02/19 [History] Allergy/AdvReac Type Severity Reaction Status Date / Time No Known Allergies Allergy Verified 01/02/19 13:01 All Systems PM: A 10-system review of systems was performed and is negative for pertinent findings except as documented above in the HPI. - Constitutional Vitals: Temp Pulse Resp BP Pulse Ox 97.4 F L 101 16 150/76 92 01/02/19 20:45 01/02/19 20:45 01/02/19 20:45 01/02/19 20:45 01/02/19 20:45 Exam: Vitals: Reviewed General: Well-developed well-appearing female lying comfortably in bed in no acute distress. Skin: Warm and supple HEENT: Moist mucous membranes. No conjunctivae pallor. Neck: No lymphadenopathy. No JVD. No carotid bruits. No palpable thyroid. Chest: Normal thoracic expansion. Normal breath sounds. Clear to auscultation. Heart: Normal S1 & S2; rhythmic. No rubs or murmurs. Abdomen: Non-distended, soft and non-tender to palpation. No peritoneal reaction. Extremities: No clubbing, cyanosis or edema. No calf tenderness. Normal distal pulses. Symmetric 5/5 b/l LE strength with sensation intact. Neurological: Awake, alert and oriented to person, place and time. No focal deficits. Psych: Affect appropriate. Internal Med - H&P Results - Labs CBC & Chem 7: 01/02/19 13:53 01/02/19 13:53 Labs: Short CBC 01/02/19 Range/Units 13:53 WBC 7.2 (4.3-11.1) K/mcL Hgb 13.6 (11.5-15.4) g/dL Hct 44.1 (35.3-44.9) % Plt Count 255 (140-400) K/mcL Neutrophils # 4.5 (1.6-8.9) K/mcL BMP 01/02/19 13:53 Sodium 142 Potassium 4.1 Chloride 106 Carbon Dioxide 25 BUN 23 Creatinine 0.74 Glucose 117 H Calcium 9.2 Cardiac Enzymes 01/02/19 Range/Units 13:53 Troponin I < 0.03 (< 0.04) ng/mL - Impressions ITS Impressions Chest X-Ray 01/02/19 13:43 IMPRESSION: 1. No active pulmonary disease. D/ / Guillermo Baron MD / Guillermo Baron MD Interpreting Provider: Guillermo Baron MD Lumbar Spine MRI 01/02/19 14:08 IMPRESSION: Severe spinal canal stenosis at L4-5 secondary to grade 1 anterolisthesis, posterior disc osteophyte complex, central and left central disc herniations, facet degenerative changes, and ligamentum flavum thickening. Severe bilateral lateral recess stenosis. There is a mass effect on the nerve roots. There is enhancement involving the nerve roots at L4-L5, which may be secondary to compressive etiologies. There is a curvilinear appearance of the nerve roots approximately, likely secondary change from severe stenosis at L4-5. Additional multilevel degenerative changes of the lumbar spine as detailed above, with lesser degree of spinal canal stenosis or neural foraminal stenosis as detailed above. Edema and enhancement involving the inferior endplate of L5 is favored to be degenerative. No significant fluid signal within the disc space. No evidence of enhancement within the disc space. D/ / 01/02/2019 17:25:37 Peewee Singer MD / chuckie Interpreting Provider: Peewee Singer MD Pelvis X-Ray 01/02/19 14:08 IMPRESSION: No acute osseous abnormality of the pelvis. D/ / Jamal Rincon MD / Jamal Rincon MD Interpreting Provider: Jamal Rincon MD - Assessment and Plan (1) Back pain Current Visit: Yes Status: Acute Assessment and plan: Secondary to spinal stenosis with compression of nerve roots causing paresthesias. Spine surgery consult requested. Will provide pain control measures in the interim. Qualifiers: Back pain location: low back pain Chronicity: acute Back pain laterality: midline Sciatica presence: with sciatica Sciatica laterality: bilateral sciatica Qualified Code(s): M54.42 - Lumbago with sciatica, left side; M54.41 - Lumbago with sciatica, right side (2) COPD (chronic obstructive pulmonary disease) Current Visit: Yes Status: Acute Assessment and plan: No clinical signs of exacerbation. She has since quit smoking although she remains exposed to second hand smoke from her which is still a strong factor that needs to be eliminated to control her disease. She is well appearing and asymptomatic at this time, not requiring supplemental oxygen and therefore should not pose a risk for surgical intervention if this is anticipated. Of note, she had a TTE and stress test done within the past year which were unremarkable for ischemic coronary disease. Qualifiers: COPD type: unspecified COPD Qualified Code(s): J44.9 - Chronic obstructive pulmonary disease, unspecified (3) DVT prophylaxis Current Visit: Yes Status: Acute Assessment and plan: SubQ heparin ordered. - Time Spent With Patient Total time spent is greater than 50% in coordination of care (as documented) at patient's floor/unit and/or counseling patient: Greater than 35 minutes
[2019-01-02] MEDS ORDERED: Ipratropium/Albuterol Neb 3 ML IH PRN (21:13)
[2019-01-02] MEDS: Pregabalin 50 MG CAPSULE PO SCH (23:30)
[2019-01-03] MEDS: *HR* OxyCODONE Immed Rel 5 MG TABLET PO PRN ×2 (02:27→10:56)
[2019-01-03] MEDS: *HR* Heparin 5,000 UNIT/ML VIAL SQ SCH ×2 (05:40→18:27)
[2019-01-03] MEDS: Pregabalin 50 MG CAPSULE PO SCH (08:52)
[2019-01-03] MEDS ORDERED: Ascorbic Acid 500 MG TABLET PO SCH (09:00)
[2019-01-03] MEDS ORDERED: Cholecalciferol (D-3) 1,000 UNIT TABLET PO SCH (09:00)
--- NOTE | 2019-01-03 09:05 | Electrocardiograph Report ---
[place] [id number] Test Date: 2019-01-02 Pat Name: Karuna Cooley Department: 104 Room: [facility] Gender: F Parts Sales Representative: Edwin : 1955 Requested By: Jase Kemp Order Number: [id number] Reading MD: Shahab Keith Measurements Intervals Hendricks Rate: 123 P: 84 LA: 132 QRS: 2 QRSD: 69 T: 75 QT: 299 QTc: 372 Interpretive Statements SINUS TACHYCARDIA ABNORMAL RHYTHM ECG Electronically Signed On 01-03-2019 9:03:33 EDT by Shahab Keith
[2019-01-03] MEDS ORDERED: Budesonide/Formoterol 80/4.5 MDI IH SCH (10:00)
--- NOTE | 2019-01-03 11:04 | Spinal Consult Note ---
Date of Encounter: 01/03/19 Time of Encounter: 11:04 Assessment and Plan (1) Spondylolisthesis at L4-L5 level Current Visit: Yes Status: Chronic On exam she is in mild distress secondary to back pain but answers all questions appropriately. Afebrile vital signs stable. She fires all upper extremity motor groups with good strength. Her hips move symmetrically. She has a negative straight leg raise. She has some weakness in the quadriceps and EHL on the left which is 5 minus on a motor scale. Reflexes are symmetrical. She has a negative Elizabeth sign. She is unable to perform toe walk and heel walk maneuvers and has difficulty with gait. She has to sit down after being erect after a couple minutes secondary to pain and self-reported weakness in the legs. MRI of the lumbar spine dated 01/02/2019 reveals multilevel degenerative changes and disc desiccation. There is a grade 1 degenerative spondylolisthesis at L4- L5. There is severe stenosis at this level to the point of myelographic block. There is multilevel more mild foraminal stenosis at other lumbar levels. Impression: 1) spondylolisthesis L4-L5 2) severe lumbar stenosis L4-L5 3) lumbar radiculopathy 4) gait impairment with functional decline. Plan: Due to her worsening symptoms and risk for further or permanent neurologic decline as well as her severe findings on MRI examination in fair of nonoperative treatment I find it reasonable consider surgery in the form of a posterior lumbar interbody fusion L4-L5. Risk benefits possible complications and alternatives were discussed and the patient would like to proceed. The patient will be medically optimized and cleared prior to surgical intervention by the hospitalist service. (2) Lumbar stenosis with neurogenic claudication Current Visit: Yes Status: Chronic (3) Lumbar radiculopathy Current Visit: Yes Status: Chronic (4) Impaired gait and mobility Current Visit: Yes Status: Acute History of Present Illness Chief complaint: Weakness and numbness in legs, multiple falls, difficulty walking HPI: Ms. Cooley is a 63 year old female Who complains of several month history of numbness and paresthesias in the lower extremities, gait difficulties, and frequent falls which is worsening over the past 6 weeks. She states walking is difficult and she has to walk with a flex forward position remain over cart in the past few weeks. She has had multiple falls due to her legs giving way secondary to strength difficulties. She came t o the emergency department due to concerns of progressive poor mobility and his difficulty walking. She has had epidural steroid injections in the past as well as therapy. She denies bowel bladder symptomatology. Past Med Surg Social Fam HX - Past Medical History Medical history: COPD Additional medical history: hemorroids Psychiatric history: no psych history - Past Surgical History Additional surgical history: tubal. knee surgery, shoulder surgery - Social History Smoking Status: Former smoker Smokeless Tobacco Status: No Alcohol use: none Drug use: none - Family History Father Living Status: Cause of : 40 Hx Family Cardiac Disorders: Yes (Emphysema) Mother Living Status: Still Living Hx Family Cardiac Disorders: Yes (Stroke) Hx Family Neurologic Disorders: Yes (dementia) Medications and Allergies Ascorbate Calcium [Vitamin C] 500 mg PO DAILY 01/18/18 [History] Cholecalciferol (D-3) [Vitamin D] 1,000 unit PO DAILY 01/18/18 [History] Zolpidem [Ambien] 2.5 - 5 mg PO HS 01/18/18 [History] Fluticasone/Salmeterol [Advair 250-50 Diskus] 1 each IH DAILY #1 blst.w.dev 01/20/18 [Rx] Duloxetine HCl [Cymbalta] 100 mg PO DAILY 01/02/19 [History] Pregabalin [Lyrica] 100 mg PO BID 01/02/19 [History] Allergy/AdvReac Type Severity Reaction Status Date / Time No Known Allergies Allergy Verified 01/02/19 13:01 Results - Labs Result Diagrams: 01/02/19 13:53 01/02/19 13:53 Labs: Abnormal lab results RBC 5.42 M/mcL (3.82-4.97) H 01/02/19 13:53 MCV 81.4 fL (83.0-100.0) L 01/02/19 13:53 MCH 25.1 pg (28.0-33.3) L 01/02/19 13:53 MCHC 30.8 g/dL (31.6-35.5) L 01/02/19 13:53 RDW 15.6 % (11.5-14.5) H 01/02/19 13:53 BUN/Creatinine Ratio 31 (6-26) H 01/02/19 13:53 Glucose 117 mg/dL (70-105) H 01/02/19 13:53 H & H 01/02/19 Range/Units 13:53 Hgb 13.6 (11.5-15.4) g/dL Hct 44.1 (35.3-44.9) % All other labs normal. Consult Discharge Plan - Plan Referrals: Johnny Swartz MD [Primary Care Provider] -
--- NOTE | 2019-01-03 13:58 | Internal Med Progress Note ---
<Mendez Montes - Last Filed: 01/03/19 15:25> Hospitalist Progress Note - Encounter Date of Encounter: 01/03/19 - Exam Vitals: Temp Pulse Resp BP Pulse Ox 98.6 F 76 18 94/61 94 01/03/19 13:07 01/03/19 13:07 01/03/19 13:07 01/03/19 13:07 01/03/19 13:07 - Assessment and Plan (1) Lumbar canal stenosis Current Visit: Yes Status: Acute (2) DVT prophylaxis Current Visit: Yes Status: Acute Comments: subq heparin (3) Back pain Current Visit: Yes Status: Acute (4) COPD (chronic obstructive pulmonary disease) Current Visit: Yes Status: Chronic (5) Spondylolisthesis at L4-L5 level Current Visit: Yes Status: Chronic - Time Spent with Patient Total time spent is greater than 50% in coordination of care (as documented) at patient's floor/unit and/or counseling patient: Internal Medicine: Result - Labs CBC & Chem 7: 01/02/19 13:53 01/02/19 13:53 - ABG Interpretation ABG results: PT/INR, D-dimer PT 10.1 Seconds (9.4-12.1) 01/02/19 13:53 - Impressions Impressions Lumbar Spine MRI 01/02/19 14:08 IMPRESSION: Severe spinal canal stenosis at L4-5 secondary to grade 1 anterolisthesis, posterior disc osteophyte complex, central and left central disc herniations, facet degenerative changes, and ligamentum flavum thickening. Severe bilateral lateral recess stenosis. There is a mass effect on the nerve roots. There is enhancement involving the nerve roots at L4-L5, which may be secondary to compressive etiologies. There is a curvilinear appearance of the nerve roots approximately, likely secondary change from severe stenosis at L4-5. Additional multilevel degenerative changes of the lumbar spine as detailed above, with lesser degree of spinal canal stenosis or neural foraminal stenosis as detailed above. Edema and enhancement involving the inferior endplate of L5 is favored to be degenerative. No significant fluid signal within the disc space. No evidence of enhancement within the disc space. D/ / 01/02/2019 17:25:37 Peewee Singer MD / chuckie Interpreting Provider: Peewee Singer MD Consult Discharge Plan - Plan Referrals: Johnny Swartz MD [Primary Care Provider] - - Attending Attestation I examined this patient and my medical decision-making was reviewed with the Resident Physician on 01/03/19. I agree with the documented findings, disposition and treatment plan as described except to the extent set forth below. Ms Cooley is currently in observation for severe back pain due to spinal stenosis. She remains moderate to high risk. Ms Cooley is still having some pain. She is to go to surgery this afternoon. No fever or chills. No CP or SOB. Exam Alert Comfortable at this time Mucus membranes dry Heart reg and not tachy No wheeze abd soft No edema Pt denies chest pain or dyspnea with exertion. No dizziness. No prior cardiac disease. Stress neg last year. Pt deemed low risk for moderate risk surgery. Further diagnoses and plan as above. <Carla Iverson - Last Filed: 01/03/19 18:52> Hospitalist Progress Note - Encounter Date of Encounter: 01/03/19 Time of Encounter: 09:00 - Subjective Interval History: Patient presented with lower back pain that radiates to lower extremities. This is been worsening over the last few weeks. Imagings showed L4-L5 disc herniation, degenerative disc disease, mass effect on the nerve roots enhancement of involving nerve roots L4-L5 secondary to compressive etiologies edema and enhancement involving inferior endplate L5 favored to be degenerative no significant fluid signal within the disc space no evidence of enhancement within the disc space Patient scheduledfor surgery today Patient EKG shows tachycardia but no otehr abnormalities Patient had Stress test in july negative result NO acute infection Patient denies shortness of breath or chest pain with exertion Patient denies dizziness Kidney function normal Previous history of multiple surgeries without complication with anesthesia or surgery Cleared for surgery - Exam Vitals: Temp Pulse Resp BP Pulse Ox 98.6 F 76 18 94/61 94 01/03/19 13:07 01/03/19 13:07 01/03/19 13:07 01/03/19 13:07 01/03/19 13:07 Exam: General: AAOx3, no acute distress, answers questions appropriately Cardio: RRR, no mumrurs, rubs, gallops Resp: CTAB, no wheezing, rales, rhonchi Abd: regular bowel shounds, no gaurding or rigidity Extremities: no pedal edema, pulses equal bilaterally Skin: warm, dry, intact . - Assessment and Plan (1) Back pain Current Visit: Yes Status: Acute Assessment and Plan: MRI lumbar spine 01/02/18 ultilevel degenerative changes and disc desiccation . Grade 1 degenerative spondylolithesis at L4-L5 severe stenosis at this level to point of myelographic block Impression: spondylolithesis L4-5, severe lumbar stenosis L4-5, lumbar radiculopathy, gaint impairment with functional decline Orthopedics will be doing a posterior lumbar interbody fusion of L4-5 today Pain medication as needed (2) Bilateral leg numbness Current Visit: Yes Status: Acute Assessment and Plan: bilateral leg numbness associated with severe lumbar stenosis at L4-L5 Surgery as above (3) COPD (chronic obstructive pulmonary disease) Current Visit: Yes Status: Chronic Assessment and Plan: currently controlled on ADvair discus and proair continue ome medications (4) DVT prophylaxis Current Visit: Yes Status: Acute Assessment and Plan: Subcutaneous heparin Comments: subq heparin (5) Anxiety Current Visit: Yes Status: Chronic Assessment and Plan: currently controlled on Cymbalta Continue home medication DVT Prophylaxis: subq heparin - Time Spent with Patient Total time spent is greater than 50% in coordination of care (as documented) at patient's floor/unit and/or counseling patient: Plan of Care Discussed with: patient Internal Medicine: Result - Labs CBC & Chem 7: 01/02/19 13:53 01/02/19 13:53 Labs: Short CBC 01/02/19 Range/Units 13:53 WBC 7.2 (4.3-11.1) K/mcL Hgb 13.6 (11.5-15.4) g/dL Hct 44.1 (35.3-44.9) % Plt Count 255 (140-400) K/mcL Neutrophils # 4.5 (1.6-8.9) K/mcL BMP 01/02/19 13:53 Sodium 142 Potassium 4.1 Chloride 106 Carbon Dioxide 25 BUN 23 Creatinine 0.74 Glucose 117 H Calcium 9.2 Cardiac Enzymes 01/02/19 Range/Units 13:53 Troponin I < 0.03 (< 0.04) ng/mL - ABG Interpretation ABG results: PT/INR, D-dimer PT 10.1 Seconds (9.4-12.1) 01/02/19 13:53 - Impressions Impressions Chest X-Ray 01/02/19 13:43 IMPRESSION: 1. No active pulmonary disease. D/ / Guillermo Baron MD / Guillermo Baron MD Interpreting Provider: Guillermo Baron MD Lumbar Spine MRI 01/02/19 14:08 IMPRESSION: Severe spinal canal stenosis at L4-5 secondary to grade 1 anterolisthesis, posterior disc osteophyte complex, central and left central disc herniations, facet degenerative changes, and ligamentum flavum thickening. Severe bilateral lateral recess stenosis. There is a mass effect on the nerve roots. There is enhancement involving the nerve roots at L4-L5, which may be secondary to compressive etiologies. There is a curvilinear appearance of the nerve roots approximately, likely secondary change from severe stenosis at L4-5. Additional multilevel degenerative changes of the lumbar spine as detailed above, with lesser degree of spinal canal stenosis or neural foraminal stenosis as detailed above. Edema and enhancement involving the inferior endplate of L5 is favored to be degenerative. No significant fluid signal within the disc space. No evidence of enhancement within the disc space. D/ / 01/02/2019 17:25:37 Peewee Singer MD / chuckie Interpreting Provider: Peewee Singer MD Pelvis X-Ray 01/02/19 14:08 IMPRESSION: No acute osseous abnormality of the pelvis. D/ / Jamal Rincon MD / Jamal Rincon MD Interpreting Provider: Jamal Rincon MD <Mendez Montes A - Last Filed: 01/03/19 15:25> (1) Lumbar canal stenosis Qualifiers: Neurogenic claudication status: with neurogenic claudication Qualified Code(s): M48.062 - Spinal stenosis, lumbar region with neurogenic claudication (3) Back pain Qualifiers: Back pain location: low back pain Chronicity: acute Back pain laterality: midline Sciatica presence: with sciatica Sciatica laterality: bilateral sciatica Qualified Code(s): M54.42 - Lumbago with sciatica, left side; M54.41 - Lumbago with sciatica, right side (4) COPD (chronic obstructive pulmonary disease) Qualifiers: COPD type: unspecified COPD Qualified Code(s): J44.9 - Chronic obstructive pulmonary disease, unspecified <ZayraCarla E - Last Filed: 01/03/19 18:52> (1) Back pain Qualifiers: Back pain location: low back pain Chronicity: acute Back pain laterality: midline Sciatica presence: with sciatica Sciatica laterality: bilateral sciatica Qualified Code(s): M54.42 - Lumbago with sciatica, left side; M54.41 - Lumbago with sciatica, right side (3) COPD (chronic obstructive pulmonary disease) Qualifiers: COPD type: unspecified COPD Qualified Code(s): J44.9 - Chronic obstructive pulmonary disease, unspecified
[2019-01-03] MEDS ORDERED: diazePAM 10 MG/2 ML SYRINGE IVP ONE (16:27)
--- NOTE | 2019-01-03 18:09 | Anesthesia Evaluation PreOp ---
Date of Encounter: 01/03/19 Time of Encounter: 19:43 - Past History Planned Operation: PLIF L4/L5 Cardiac History: Denies any Significant Hx Pulmonary History: Former smoker, COPD SENIOR INTEGRATION ARCHITECT History: Other (L4/5 SPINAL STENOSIS, MIGUEL LE INCREASING PAIN, AND MILD MOTOR DEFFICITS) Other Medical History: Denies Any Significant HX Anesthesia History: No Prior Anesthetic Complications, Past Anesthesia Alcohol Use: none Drug use: none Medications and Allergies Ascorbate Calcium [Vitamin C] 500 mg PO DAILY 01/18/18 [History] Cholecalciferol (D-3) [Vitamin D] 1,000 unit PO DAILY 01/18/18 [History] Zolpidem [Ambien] 2.5 - 5 mg PO HS 01/18/18 [History] Fluticasone/Salmeterol [Advair 250-50 Diskus] 1 each IH DAILY #1 blst.w.dev 01/20/18 [Rx] Duloxetine HCl [Cymbalta] 100 mg PO DAILY 01/02/19 [History] Pregabalin [Lyrica] 100 mg PO BID 01/02/19 [History] Allergy/AdvReac Type Severity Reaction Status Date / Time No Known Allergies Allergy Verified 01/02/19 13:01 - Meds/Allergy Pre-op Review Medications Reviewed: Yes Allergies Reviewed: Yes Beta Blockers on Current Med List: No Anesthesia Results - Labs 01/02/19 13:53 01/02/19 13:53 Anesthesia Exam Vital Signs/O2 Sat, Most Current Temp Pulse Resp BP Pulse Ox 98.6 F 76 18 94/61 94 01/03/19 13:07 01/03/19 13:07 01/03/19 13:07 01/03/19 13:07 01/03/19 13:07 NPO (# of Hours): >8 - HEENT Mallampati: II Teeth: Normal Oral Opening: Greater than 3 - SENIOR INTEGRATION ARCHITECT LOC: Oriented SENIOR INTEGRATION ARCHITECT Motor: Normal RUE, Normal LUE, Normal Face, Deficit RLE (5-/5 plantar flexion), Deficit LLE (4/5 knee extension, 5-/5 plantar flexion) - Cardiac Rhythm: Regular - Pulmonary Breath Sounds: bilateral Clear Respiratory Effort: Symmetrical Anesthesia Assess/Plan ASA Score: 3 Anesthetic Plan: General Monitoring Plan: Standard Monitors Recovery Plan: PACU
[2019-01-03] MEDS ORDERED: *HR* HYDROmorphone (PF) 1 MG/ML SYRINGE IVP PRN ×2 (19:47→20:50)
[2019-01-03] MEDS ORDERED: *HR* Midazolam HCl 2 MG/2 ML VIAL IVP PRN (19:47)
[2019-01-03] MEDS ORDERED: Ringers Solution, Lactated 1,000 ML IVC SCH (20:00)
[2019-01-03] MEDS ORDERED: Bacitracin 50,000 UNIT, Polymyxin B Sulfate 500,000 UNIT, Sodium Chloride IRRigation 1,... IR ONE (20:30)
[2019-01-03] MEDS ORDERED: *HR* HYDROMORPHONE 2 MG/ML VIAL ONE ×2 (20:34→21:34)
[2019-01-03] MEDS ORDERED: Dexamethasone 4 MG/ML VIAL ONE (20:36)
[2019-01-03] MEDS ORDERED: Lidocaine -MPF 2% 2 ML VIAL ONE (20:36)
[2019-01-03] MEDS ORDERED: Lidocaine -MPF 4% 5 ML AMPUL ONE (20:36)
[2019-01-03] MEDS ORDERED: Ondansetron 4 MG/2 ML VIAL ONE (20:36)
[2019-01-03] MEDS ORDERED: PROPOFOL ONE (20:37)
[2019-01-03] MEDS ORDERED: Ondansetron 4 MG/2 ML VIAL IVP ONE (20:50)
[2019-01-03] MEDS ORDERED: *HR* Promethazine 25 MG/ML VIAL IVP PRN (20:50)
[2019-01-03] MEDS ORDERED: *HR* Meperidine 25 MG/ML SYRINGE IVP PRN (20:50)
[2019-01-03] MEDS ORDERED: Albuterol 2.5 MG/3 ML NEBULIZER IH ONE (20:50)
[2019-01-03] MEDS ORDERED: *HR* OxyCODONE Immed Rel 5 MG TABLET PO PRN (20:50)
[2019-01-03] MEDS ORDERED: *HR* PHENYLEPHRINE 1,000 MCG/10 ML SYRINGE IVP ONE (21:08)
[2019-01-03] MEDS ORDERED: *HR* Succinylcholine 200 MG/10 ML VIAL IVP ONE (21:08)
[2019-01-03] MEDS ORDERED: Acetaminophen IV 1,000 MG/100 ML INFUS..BTL ONE (22:00)
[2019-01-03] MEDS ORDERED: Propofol 500 MG/50 ML INFUS..BTL ONE (22:27)
--- NOTE | 2019-01-03 23:42 | Orthopedic Operative Note ---
Date of procedure: 01/03/19 Pre-op diagnosis: Spondylolisthesis, lumbar stenosis, lumbar radiculopathy Post-op diagnosis: same Operation/Findings: Posterior lumbar interbody fusion L4-L5: The patient successfully underwent general endotracheal anesthesia. The patient was given antibiotics prior to the start of the procedure. Compression boots and stockings were used for deep vein thrombosis prophylaxis. A Atkins catheter was placed. Leads for neuro monitoring were placed on the upper and lower extremities. This included the cranium. The neuro monitoring personnel confirmed there were satisfactory readings prior to the start of the procedure. The patient was turned prone on the Iglesia table. The back was prepped and draped in the usual sterile fashion. An incision was was marked and centered over the involved levels in the mid line. The incision was deepened through the lumbar fascia. Bovie cautery and Godoy elevators were used to reflect the paraspinal musculature at the lateral extent of the transverse processes of the involved L4 and L5 levels. Jo Ann clamps were placed over the spinous processes. An intraoperative lateral fluorograph was obtained. A conversation was held between the surgeon and radiologist and both confirmed we had the correct operative levels. We then placed pedicle screws in standard fashion with the aid of fluoroscopy and anatomic landmarks. Briefly a starter awl was used. A gearshift was subsequently used to enter the steamboat pilot hole via a transpedicular route into the vertebral body. The steamboat pilot hole was tapped with an undersized instrument, and subsequentlyfour 6.5 x 40 mm pedicle screws were placed bilaterally at the indicated L4 and L5 levels. The screws were tested with the aid of the neurologic monitoring staff via pedicle screw stimulation. All reading suggested there was no significant cortical wall breech. The screws were also evaluated fluoro- graphically and appeared to be in satisfactory position. We then turned our attention to the decompression portion of the procedure. We removed the supraspinous and interspinous ligaments and subsequently the insertion of the ligamentum flavum on the undersurface of the proxima L4 l lamina was dislodged with a curette. We then removed the ligamentum flavum as well as undercut the facets at this L4-L5 level to decompress the lateral recesses. We also performed a L4 laminectomy. After the decompression, which was over and above that which was required to place the interbody graft, the foramen and traversing roots at this L4-L5 level were found to be free and patent. We also took part of the medial facets in order to aid in the decompression. We then protected the neural elements including the thecal sac and traversing nerve root on the right with a dural retractor. We made an annulotomy into the L4-L5 disc space and then removed entire disc material using Pituitary instruments. We trialed various size grafts after the endplates were prepared for graft insertion. An 8mm x 26 enter body graft fit well within the L4-L5 disc space. We obtained some bone from the right posterior superior iliac spine through us a separate incision and combined with this with the bone which we had saved from the laminectomy portion of the procedure. This autograft bone was first placed in the anterior portion of the L4-L5 disc space and additional bone was placed within the interbody graft spacer. We then placed the interbody graft spacer obliquely across the L4-L5 disc space towards the midline while protecting the neural elements with a root retractor. When the graft was found to be in satisfactory position the advertising account manager was removed. We then copiously irrigated the wound. We then decorticated the L4 and L5 transverse processes as well as the facet joints of the involved L4 and L5 levels to aid in the posterolateral fusion. We placed autograft bone in the lateral gutters over these regions. We then placed rods within the screw heads of the involved L4 and L5 levels and first locked the distal screws and then subsequently locked the proximal screws so as to improve and reduce the spondylolisthesis previously seen. We then closed the wound in layers with 1 Vicryl for the fascia, 2-0 Vicryl. Subcutaneous tissue, and Dermabond was used for skin closure. Sterile dressings were placed over the wound. The patient was turned supine on a hospital bed and extubated. All sponge instruments and needle counts were correct at the end of the procedure. The patient tolerated the procedure well without complications. Anesthesia: GETA Surgeon: Jamar Mckoy Jr Was there an commercial real estate assistant present: No Estimated blood loss (cc): 100 Specimen: None Condition: stable Disposition: PACU
[2019-01-04] MEDS ORDERED: *HR* Nalbuphine 10 MG/ML AMPUL ONE (00:38)
[2019-01-04] MEDS ORDERED: Ringers Solution, Lactated 1,000 ML IVC SCH (00:49)
[2019-01-04] MEDS ORDERED: Ondansetron 4 MG/2 ML VIAL IVP PRN (00:49)
[2019-01-04] MEDS ORDERED: Naloxone 0.4 MG/ML INJ IVP PRN (00:49)
[2019-01-04] MEDS ORDERED: Acetaminophen 325 MG TABLET PO PRN (00:49)
--- NOTE | 2019-01-04 03:55 | Anesthesia Evaluation Post Op ---
Date of Encounter: 01/04/19 Time of Encounter: 00:41 - Discharge PostOp Status: Transfer Patient to floor (Patient's vital signs have been reviewed. Patient is stable postoperatively and has adequately recovered from anesthesia. Patient is determined to have stable airway patency and respiratory function including respiratory rate and oxygen saturation. Patient has a stable heart rate, blood pressure and adequate hydration. Patients mental status is acceptable. Patients temperature is appropriate. Pain and nausea are adequately controlled.)
--- NOTE | 2019-01-04 08:34 | Orthopedics Progress Note ---
Date of Encounter: 01/04/19 Time of Encounter: 08:34 - Assessment and Plan (1) Spondylolisthesis Current Visit: Yes Status: Chronic Qualifiers: Spinal region: unspecified Qualified Code(s): M43.10 - Spondylolisthesis, site unspecified (2) Lumbar stenosis Current Visit: Yes Status: Chronic Qualifiers: Neurogenic claudication status: unspecified Qualified Code(s): M48.061 - Spinal stenosis, lumbar region without neurogenic claudication (3) Lumbar radiculopathy Current Visit: Yes Status: Chronic (4) Status post lumbar spinal fusion Current Visit: Yes Status: Acute Subjective Principal diagnosis: s/p PLIF Interval history: Date of procedure: 01/03/19 Pre-op diagnosis: Spondylolisthesis, lumbar stenosis, lumbar radiculopathy Post-op diagnosis: same Operation/Findings: Posterior lumbar interbody fusion L4-L5 The patient is without complaints. Vitals and labs reviewed. Dressing is clean dry and intact. Neurovascularly intact with regard to bilate ral lower extremities. Fires all upper and lower extremity motor groups. Assessment :stable postop. Plan mobilize ,continue analgesics, discharge planning Scripts printed for discharge anticipated this weekend following lumbar xrays. Plan communicated to IM resident. Objective Vital signs: Vital Signs Temp Pulse Resp BP Pulse Ox 01/04/19 06:36 98.2 F 106 16 101/56 96 01/04/19 03:50 98.5 F 114 15 134/65 97 01/04/19 02:50 98.7 F 113 15 117/74 96 01/04/19 01:50 98.8 F 116 15 133/79 96 01/04/19 01:20 98.8 F 117 15 138/84 96 01/04/19 01:10 96 01/04/19 00:50 99.0 F 112 16 124/75 96 01/04/19 00:35 111 16 142/73 96 01/04/19 00:25 99.2 F 107 14 140/68 96 01/04/19 00:15 108 16 146/76 100 01/04/19 00:05 110 14 137/71 95 01/03/19 23:55 99.7 F H 111 16 133/74 98 01/03/19 13:07 98.6 F 76 18 94/61 94 01/03/19 11:18 16 95 01/03/19 10:42 98.6 F 111 16 118/58 94 Intake and Output 01/03/19 01/04/19 01/04/19 23:59 07:59 15:59 Intake Total 100 / 100 Output Total 100 / 100 400 / 400 Balance -100 / -100 -300 / -300 Intake: IV Fluids 100 / 100 Ancef 2,000 MG In 0.9 % Sodium 100 / 100 Chloride 100 ML @ 200 mls/hr IVPB Q8HR [facility] Rx#:[id number] Output: Estimated Blood Loss 100 / 100 Urine Amount (Catheter) 400 / 400 - Labs CBC & BMP: 01/07/19 06:05 01/07/19 06:05 Labs: Abnormal lab results RBC 5.42 M/mcL (3.82-4.97) H 01/02/19 13:53 MCV 81.4 fL (83.0-100.0) L 01/02/19 13:53 MCH 25.1 pg (28.0-33.3) L 01/02/19 13:53 MCHC 30.8 g/dL (31.6-35.5) L 01/02/19 13:53 RDW 15.6 % (11.5-14.5) H 01/02/19 13:53 BUN/Creatinine Ratio 31 (6-26) H 01/02/19 13:53 Glucose 117 mg/dL (70-105) H 01/02/19 13:53 Consult Discharge Plan - Plan Referrals: Johnny Swartz MD [Primary Care Provider] -
[2019-01-04] MEDS: *HR* OxyCODONE Immed Rel 5 MG TABLET PO PRN ×4 (09:04→22:09)
--- NOTE | 2019-01-04 15:36 | Internal Med Progress Note ---
<Carla Iverson E - Last Filed: 01/04/19 15:32> Hospitalist Progress Note - Encounter Date of Encounter: 01/04/19 Time of Encounter: 10:00 - Subjective Interval History: Patient presented with lower back pain that radiated to her lower extremities that had been getting worse over the last few weeks Patient received fusion of the L4-L5 discs due to degenerative disc disease, mass effect on the nerve roots enhance met of involving nerve roots L4-L5 secondary to compressive etiologies edema and enhancement involving inferior endplate L5. Patient's preop diagnosis with spondylolisthesis, lumbar stenosis, and lumbar radiculopathy Patient was seen and examined this morning. She states that her pain is changed from when she came in. She states her back is sore from surgery, but no longer has the neuropathic pain that she has had the last few months. She states she no longer has numbness in her legs and the only place that she still has numbness is the pads of her feet. She denies shortness of breath, chest pain, bowel or bladder issues Orthopedics is managing her pain. They like to keep her over the weekend with possible discharge on Monday. She is to have physical therapy. She will also be discharged to rehabilitation. - Exam Vitals: Temp Pulse Resp BP Pulse Ox 98.9 F 111 14 101/65 96 01/04/19 15:28 01/04/19 15:28 01/04/19 15:28 01/04/19 15:28 01/04/19 15:28 Exam: General: AAOx3, no acute distress, answers questions appropriately Cardio: RRR, no mumrurs, rubs, gallops Resp: CTAB, no wheezing, rales, rhonchi Abd: regular bowel shounds, no gaurding or rigidity Extremities: no pedal edema, pulses equal bilaterally Skin: warm, dry, intact . - Assessment and Plan (1) Back pain Current Visit: Yes Status: Acute Assessment and Plan: MRI lumbar spine on January 02 showed multilevel degenerative changes and disc desiccation. Grade 1 degenerative spondylolisthesis at L4-L5 with severe stenosis at this level to the point of myelographic block. Impression included spondylolisthesis at L4-L5, severe lumbar stenosis at L4-L5, lumbar radiculopathy, and giant impairment with functional decline Orthopedics did a L4-L5 fusion Patient is to wear brace when she is up Avoid bending stomach Pain management as per orthopedics Patient will be discharged to rehabilitation (2) Bilateral leg numbness Current Visit: Yes Status: Acute Assessment and Plan: See with severe lumbar stenosis As above (3) COPD (chronic obstructive pulmonary disease) Current Visit: Yes Status: Chronic Assessment and Plan: Currently controlled on Advair Diskus and pro-air Continue home medications (4) DVT prophylaxis Current Visit: Yes Status: Acute Assessment and Plan: Subcutaneous heparin Comments: subq heparin (5) Anxiety Current Visit: Yes Status: Chronic Assessment and Plan: Currently controlled on Cymbalta Continue home medication DVT Prophylaxis: subq heparin - Time Spent with Patient Total time spent is greater than 50% in coordination of care (as documented) at patient's floor/unit and/or counseling patient: Internal Medicine: Result - Labs CBC & Chem 7: 01/02/19 13:53 01/02/19 13:53 - ABG Interpretation ABG results: PT/INR, D-dimer PT 10.1 Seconds (9.4-12.1) 01/02/19 13:53 - Impressions Impressions Fluoroscopy 01/03/19 21:40 IMPRESSION: Intraoperative fluoroscopy provided without a Radiologist in attendance. No images were obtained. D/ / Kyle Izaguirre MD / yKle Izaguirre MD Interpreting Provider: Kyle Izaguirre MD Lumbar Spine X-Ray 01/03/19 21:40 IMPRESSION: 1. Posterior fusion from L4-L5 with discectomy at L4-L5. Normal alignment. 2. Curvilinear lucencies in the abdomen, questionable for bowel. If patient has abdominal symptoms, recommend dedicated abdominal radiograph. If patient does not have abdominal symptoms, no additional follow-up is recommended as this can be attributed to artifact. D/ / Damien Bills MD / Damien Bills MD Interpreting Provider: Damien Bills MD Consult Discharge Plan - Plan Referrals: Johnny Swartz MD [Primary Care Provider] - Prescriptions: OxyCODONE Immed Rel [Roxicodone 5 MG] 5 mg PO Q6HR PRN 5 Days #20 tablet PRN Reason: Severe Pain Docusate Sodium [Colace] 100 mg PO BID 5 Days #10 capsule <Mendez Montes - Last Filed: 01/04/19 20:03> Hospitalist Progress Note - Encounter Date of Encounter: 01/04/19 - Exam Vitals: Temp Pulse Resp BP Pulse Ox 98.9 F 111 14 101/65 96 01/04/19 15:28 01/04/19 15:28 01/04/19 15:28 01/04/19 15:28 01/04/19 15:28 - Assessment and Plan (1) Lumbar canal stenosis Current Visit: Yes Status: Acute (2) DVT prophylaxis Current Visit: Yes Status: Acute Comments: subq heparin (3) Back pain Current Visit: Yes Status: Acute (4) COPD (chronic obstructive pulmonary disease) Current Visit: Yes Status: Chronic (5) Spondylolisthesis at L4-L5 level Current Visit: Yes Status: Chronic - Time Spent with Patient Total time spent is greater than 50% in coordination of care (as documented) at patient's floor/unit and/or counseling patient: Internal Medicine: Result - Labs CBC & Chem 7: 01/02/19 13:53 01/02/19 13:53 - ABG Interpretation ABG results: PT/INR, D-dimer PT 10.1 Seconds (9.4-12.1) 01/02/19 13:53 - Impressions Impressions Fluoroscopy 01/03/19 21:40 IMPRESSION: Intraoperative fluoroscopy provided without a Radiologist in attendance. No images were obtained. D/ / Kyle Izaguirre MD / Kyle Izaguirre MD Interpreting Provider: Kyle Izaguirre MD Lumbar Spine X-Ray 01/03/19 21:40 IMPRESSION: 1. Posterior fusion from L4-L5 with discectomy at L4-L5. Normal alignment. 2. Curvilinear lucencies in the abdomen, questionable for bowel. If patient has abdominal symptoms, recommend dedicated abdominal radiograph. If patient does not have abdominal symptoms, no additional follow-up is recommended as this can be attributed to artifact. D/ / Damien Bills MD / Damien Bills MD Interpreting Provider: Damien Bills MD - Attending Attestation I examined this patient and my medical decision-making was reviewed with the Resident Physician on 01/04/19. I agree with the documented findings, disposition and treatment plan as described except to the extent set forth below. Ms Cooley is currently admitted for spinal stenosis s/p laminectomy. She remains moderate to high risk due to potential for worsening clinical status. Ms Cooley is doing OK. She has pain in incision. No fever or chills. Exam alert comfortable Mucus membranes dry Heart reg No wheeze abd soft No edeam I/P 1. Spinal stenosis s/p lami Further diagnoses and plan as above. <Carla Iverson - Last Filed: 01/04/19 15:32> (1) Back pain Qualifiers: Back pain location: low back pain Chronicity: acute Back pain laterality: midline Sciatica presence: with sciatica Sciatica laterality: bilateral sciatica Qualified Code(s): M54.42 - Lumbago with sciatica, left side; M54.41 - Lumbago with sciatica, right side (3) COPD (chronic obstructive pulmonary disease) Qualifiers: COPD type: unspecified COPD Qualified Code(s): J44.9 - Chronic obstructive pulmonary disease, unspecified <Mendez Montes - Last Filed: 01/04/19 20:03> (1) Lumbar canal stenosis Qualifiers: Neurogenic claudication status: with neurogenic claudication Qualified Code(s): M48.062 - Spinal stenosis, lumbar region with neurogenic claudication (3) Back pain Qualifiers: Back pain location: low back pain Chronicity: acute Back pain laterality: midline Sciatica presence: with sciatica Sciatica laterality: bilateral sciatica Qualified Code(s): M54.42 - Lumbago with sciatica, left side; M54.41 - Lumbago with sciatica, right side (4) COPD (chronic obstructive pulmonary disease) Qualifiers: COPD type: unspecified COPD Qualified Code(s): J44.9 - Chronic obstructive pulmonary disease, unspecified
[2019-01-04] MEDS ORDERED: Lidocaine Jelly 6ml 1 APPL/6 ML JEL.PF.APP TP ONE (22:46)
[2019-01-05 03:09] LABS: Basophils % 0.1 %; Hematocrit 32.7 % (35.3-44.9); Immature Granulocytes % 0.7 % (0-4); Lymphocytes # 0.9 K/mcL (0.6-4.6); Lymphocytes % 6.1 %; Mean Corpuscular HGB Conc 32.4 g/dL (31.6-35.5); Mean Corpuscular Hemoglobin 25.7 pg (28.0-33.3); Mean Corpuscular Volume 79.4 fL (83.0-100.0); Mean Platelet Volume 10.8 fL (9.4-12.4); Monocytes % 7.5 %; Neutrophils # 13.1 K/mcL (1.6-8.9); Platelet Count 187 K/mcL (140-400); Red Blood Count 4.12 M/mcL (3.82-4.97); Red Cell Distribution Width 15.4 % (11.5-14.5); Segmented Neutrophils % 85.6 %
[2019-01-05 03:10] LABS: Hemoglobin 10.6 g/dL (11.5-15.4); Monocytes # 1.2 K/mcL (0.0-1.3)
[2019-01-05 03:26] LABS: Alanine Aminotransferase 14 Units/L (7-52); Albumin 3.5 g/dL (3.5-5.7); Albumin/Globulin Ratio 1.8 (1.1-2.2); Alkaline Phosphatase 64 Units/L (34-104); Aspartate Amino Transferase 21 Units/L (13-39); BUN/Creatinine Ratio 21 (6-26); Bilirubin,Total 0.6 mg/dL (0.3-1.0); Blood Urea Nitrogen 12 mg/dL (8-23); Calcium 8.7 mg/dL (8.6-10.3); Carbon Dioxide 30 mEq/L (23-29); Chloride 103 mEq/L (98-107); Glucose 143 mg/dL (70-105); Osmolality,Calculated 290 (280-300); Sodium 139 mEq/L (136-145); Total Protein 5.5 g/dL (6.4-8.9); eGFR For Non-African Americans > 60 (> 60)
[2019-01-05] MEDS: *HR* OxyCODONE Immed Rel 5 MG TABLET PO PRN ×4 (04:04→17:57)
--- NOTE | 2019-01-05 07:11 | Orthopedics Progress Note ---
Date of Encounter: 01/05/19 Time of Encounter: 07:10 Subjective Principal diagnosis: s/p PLIF Interval history: Patient complained of back pain and difficulty mobilizing Afebrile vital signs stable Bilateral lower extremity Neurovascular intact Calves nontender Continue postoperative care Objective Vital signs: Vital Signs Temp Pulse Resp BP Pulse Ox 01/05/19 03:57 98.3 F 94 16 104/61 94 01/04/19 23:49 98.3 F 99 16 115/66 96 01/04/19 21:32 98.6 F 114 18 128/67 90 01/04/19 15:28 98.9 F 111 14 101/65 96 01/04/19 10:51 98.0 F 105 14 98/54 94 Intake and Output 01/04/19 01/04/19 01/05/19 15:59 23:59 07:59 Intake Total 240 / 240 Output Total 300 / 300 300 / 300 400 / 400 Balance -60 / -60 -300 / -300 -400 / -400 Intake: Oral 240 / 240 Output: Urine 300 / 300 300 / 300 400 / 400 Other: Meal Breakfast # Voids 1 1 Weight 69.5 kg Patient Weight 01/05/19 23:59 Weight 69.5 kg - Labs CBC & BMP: 01/05/19 02:14 01/05/19 02:14 Labs: Abnormal lab results WBC 15.3 K/mcL (4.3-11.1) H D 01/05/19 02:14 Hgb 10.6 g/dL (11.5-15.4) L D 01/05/19 02:14 Hct 32.7 % (35.3-44.9) L 01/05/19 02:14 MCV 79.4 fL (83.0-100.0) L 01/05/19 02:14 MCH 25.7 pg (28.0-33.3) L 01/05/19 02:14 RDW 15.4 % (11.5-14.5) H 01/05/19 02:14 Neutrophils # 13.1 K/mcL (1.6-8.9) H 01/05/19 02:14 Carbon Dioxide 30 mEq/L (23-29) H 01/05/19 02:14 Creatinine 0.56 mg/dL (0.60-1.20) L 01/05/19 02:14 Glucose 143 mg/dL (70-105) H 01/05/19 02:14 Serum Total Protein 5.5 g/dL (6.4-8.9) L 01/05/19 02:14 Globulin 2.0 g/dL (2.4-3.5) L 01/05/19 02:14 Consult Discharge Plan - Plan Referrals: Johnny Swartz MD [Primary Care Provider] - Prescriptions: Docusate Sodium [Colace] 100 mg PO BID 5 Days #10 capsule OxyCODONE Immed Rel [Roxicodone 5 MG] 5 mg PO Q6HR PRN 5 Days #20 tablet PRN Reason: Severe Pain
[2019-01-05] MEDS: Budesonide/Formoterol 80/4.5 MDI IH SCH (07:37)
[2019-01-05] MEDS: Ascorbic Acid 500 MG TABLET PO SCH (09:23)
[2019-01-05] MEDS: Cholecalciferol (D-3) 1,000 UNIT TABLET PO SCH (09:23)
--- NOTE | 2019-01-05 14:26 | Internal Med Progress Note ---
<Kristi Munson - Last Filed: 01/05/19 16:58> Hospitalist Progress Note - Encounter Date of Encounter: 01/05/19 Time of Encounter: 14:00 - Subjective Interval History: Patient seen and examined at bedside, she is alert and oriented times 3. Her grandson is at the bedside. She reports that her back pain was a little worse today however the pain medication is making it tolerable. She denies fever, chills, chest pain, shortness of breath, dysuria. She is working with her incentive spirometry. - Exam Vitals: Temp Pulse Resp BP Pulse Ox 97.7 F 74 17 129/62 94 01/05/19 10:51 01/05/19 10:51 01/05/19 10:51 01/05/19 10:51 01/05/19 10:51 Exam: Gen.: Vitals noted. No acute distress. AAOx3 HEENT: oropharynx clear, Normocephalic, atraumatic Cardiac: RRR, no murmur, +S1/S2 Pulmonary: CTA bilaterally, no wheezes, rales or rhonchi, equal chest expansion Abdomen: soft, nontender, Bowel sounds noted, no guarding Extremities: no BLE edema, nontender calf, no cyanosis or clubbing Neuro: A&Ox3, moves all extremities, no focal deficits Psych: Appropriate mood and behavior - Assessment and Plan (1) Spondylolisthesis at L4-L5 level Current Visit: Yes Status: Chronic Assessment and Plan: Patient presented with back pain, multiple falls, numbness of bilateral lower extremities. -01/02/2019 lumbar spine MRI showing severe spinal canal stenosis at L4-L5 secondary to grade 1 anterolisthesis, posterior disc osteophyte complex, central and left central disc herniations, facet degenerative changes, and ligaments flavorsome thickening. Severe bilateral lateral recess stenosis. Mass effect on the nerve roots. Enhancement of nerves at L4-L5 may be secondary to compressive etiologies. Curvilinear appearance of the nerve roots proximately, likely secondary to severe stenosis at L4-L5. -s/p 01/03/2019 lumbar interbody fusion L4-L5 Plan: -patient to go to rehab upon discharge -patient is to wear wear brace when she is up and avoid bending stomach -PT/OT continued -continue pain management -ortho following (2) Back pain Current Visit: Yes Status: Acute Assessment and Plan: Back pain secondary to spondylolisthesis at L4-L5. -Plan as above (3) Bilateral leg numbness Current Visit: Yes Status: Acute Assessment and Plan: Patient reports that bilateral leg numbness has significantly improved where she only has it in her feet now. -Likely secondary to the severe lumbar stenosis -will continue to monitor (4) Lumbar canal stenosis Current Visit: Yes Status: Acute Assessment and Plan: Plan as above (5) COPD (chronic obstructive pulmonary disease) Current Visit: Yes Status: Chronic Assessment and Plan: History of COPD taking Advair and pro-air -patient with some shortness of breath but weaning supplemental oxygen -continue Symbicort -continue incentive spirometry (6) DVT prophylaxis Current Visit: Yes Status: Acute Assessment and Plan: Heparin SQ Comments: subq heparin (7) Anxiety Current Visit: Yes Status: Chronic Assessment and Plan: Anxiety controlled with Cymbalta. -Continue her medication - Time Spent with Patient Total time spent is greater than 50% in coordination of care (as documented) at patient's floor/unit and/or counseling patient: Internal Medicine: Result - Labs CBC & Chem 7: 01/05/19 02:14 01/05/19 02:14 Labs: Short CBC 01/05/19 Range/Units 02:14 WBC 15.3 H D (4.3-11.1) K/mcL Hgb 10.6 L D (11.5-15.4) g/dL Hct 32.7 L (35.3-44.9) % Plt Count 187 (140-400) K/mcL Neutrophils # 13.1 H (1.6-8.9) K/mcL BMP 01/05/19 02:14 Sodium 139 Potassium 4.0 Chloride 103 Carbon Dioxide 30 H BUN 12 Creatinine 0.56 L Glucose 143 H Calcium 8.7 Liver Function 01/05/19 Range/Units 02:14 Total Bilirubin 0.6 (0.3-1.0) mg/dL AST 21 (13-39) Units/L ALT 14 (7-52) Units/L Alkaline Phosphatase 64 (34-104) Units/L Albumin 3.5 (3.5-5.7) g/dL - ABG Interpretation ABG results: PT/INR, D-dimer PT 10.1 Seconds (9.4-12.1) 01/02/19 13:53 - Impressions Impressions Lumbar Spine MRI 01/02/19 14:08 IMPRESSION: 1. Severe spinal canal stenosis at L4-5 secondary to grade 1 anterolisthesis, posterior disc osteophyte complex, central and left central disc herniations, facet degenerative changes, and ligamentum flavum thickening, as detailed above. Severe bilateral lateral recess stenosis. Mass effect on the nerve roots. Enhancement of nerve roots at L4-L5 may be secondary to compressive etiologies. Curvilinear appearance of the nerve roots proximally, likely secondary to severe stenosis at L4-5. Correlation with recent change in patient's symptoms is recommended. 2. Additional multilevel degenerative changes of lumbar spine, as detailed above. 3. Edema and enhancement involving inferior endplate of L5 is favored to be degenerative. No significant fluid signal within the disc space. No evidence of enhancement within the disc space. D/ / 01/02/2019 17:25:37 Peewee Singer MD / [email or web address] Interpreting Provider: Peewee Singer MD Consult Discharge Plan - Plan Referrals: Johnny Swartz MD [Primary Care Provider] - Prescriptions: OxyCODONE Immed Rel [Roxicodone 5 MG] 5 mg PO Q6HR PRN 5 Days #20 tablet PRN Reason: Severe Pain Docusate Sodium [Colace] 100 mg PO BID 5 Days #10 capsule <Mendez Montes - Last Filed: 01/05/19 17:22> Hospitalist Progress Note - Encounter Date of Encounter: 01/05/19 - Exam Vitals: Temp Pulse Resp BP Pulse Ox 98.7 F 117 16 116/70 92 01/05/19 16:26 01/05/19 16:26 01/05/19 16:26 01/05/19 16:26 01/05/19 16:26 - Assessment and Plan (1) DVT prophylaxis Current Visit: Yes Status: Acute Comments: subq heparin (2) Back pain Current Visit: Yes Status: Acute (3) Bilateral leg numbness Current Visit: Yes Status: Acute (4) Lumbar canal stenosis Current Visit: Yes Status: Acute (5) COPD (chronic obstructive pulmonary disease) Current Visit: Yes Status: Chronic (6) Spondylolisthesis at L4-L5 level Current Visit: Yes Status: Chronic (7) Anxiety Current Visit: Yes Status: Chronic - Time Spent with Patient Total time spent is greater than 50% in coordination of care (as documented) at patient's floor/unit and/or counseling patient: Internal Medicine: Result - Labs CBC & Chem 7: 01/05/19 02:14 01/05/19 02:14 Labs: Short CBC 01/05/19 Range/Units 02:14 WBC 15.3 H D (4.3-11.1) K/mcL Hgb 10.6 L D (11.5-15.4) g/dL Hct 32.7 L (35.3-44.9) % Plt Count 187 (140-400) K/mcL Neutrophils # 13.1 H (1.6-8.9) K/mcL BMP 01/05/19 02:14 Sodium 139 Potassium 4.0 Chloride 103 Carbon Dioxide 30 H BUN 12 Creatinine 0.56 L Glucose 143 H Calcium 8.7 Liver Function 01/05/19 Range/Units 02:14 Total Bilirubin 0.6 (0.3-1.0) mg/dL AST 21 (13-39) Units/L ALT 14 (7-52) Units/L Alkaline Phosphatase 64 (34-104) Units/L Albumin 3.5 (3.5-5.7) g/dL - ABG Interpretation ABG results: PT/INR, D-dimer PT 10.1 Seconds (9.4-12.1) 01/02/19 13:53 - Impressions Impressions Lumbar Spine MRI 01/02/19 14:08 IMPRESSION: 1. Severe spinal canal stenosis at L4-5 secondary to grade 1 anterolisthesis, posterior disc osteophyte complex, central and left central disc herniations, facet degenerative changes, and ligamentum flavum thickening, as detailed above. Severe bilateral lateral recess stenosis. Mass effect on the nerve roots. Enhancement of nerve roots at L4-L5 may be secondary to compressive etiologies. Curvilinear appearance of the nerve roots proximally, likely secondary to severe stenosis at L4-5. Correlation with recent change in patient's symptoms is recommended. 2. Additional multilevel degenerative changes of lumbar spine, as detailed above. 3. Edema and enhancement involving inferior endplate of L5 is favored to be degenerative. No significant fluid signal within the disc space. No evidence of enhancement within the disc space. D/ / 01/02/2019 17:25:37 Peewee Singer MD / chuckie Interpreting Provider: Peewee Singer MD - Attending Attestation I examined this patient and my medical decision-making was reviewed with the Resident Physician on 01/05/19. I agree with the documented findings, disposition and treatment plan as described except to the extent set forth below. Ms Cooley is currently in observation for spinal stenosis. She is s/p laminectomy. She remains moderate to high risk due to potential for worsening clinical status. Ms Cooley is having more pain today. It is worse when she is getting up and down. No fever or chills. No CP or SOB. Pain medicine is helping. Exam alert Comfortable Mucus membranes dry Heart reg No wheeze abd soft I/P 1. Spinal stenosis s/p laminectomy - pain control. Therapy 2. COPD - stable Further diagnoses and plan as above. <Kristi Munson - Last Filed: 01/05/19 16:58> (2) Back pain Qualifiers: Back pain location: low back pain Chronicity: acute Back pain laterality: midline Sciatica presence: with sciatica Sciatica laterality: bilateral sciatica Qualified Code(s): M54.42 - Lumbago with sciatica, left side; M54.41 - Lumbago with sciatica, right side (4) Lumbar canal stenosis Qualifiers: Neurogenic claudication status: with neurogenic claudication Qualified Code(s): M48.062 - Spinal stenosis, lumbar region with neurogenic claudication (5) COPD (chronic obstructive pulmonary disease) Qualifiers: COPD type: unspecified COPD Qualified Code(s): J44.9 - Chronic obstructive pulmonary disease, unspecified <Mendez Montes - Last Filed: 01/05/19 17:22> (2) Back pain Qualifiers: Back pain location: low back pain Chronicity: acute Back pain laterality: midline Sciatica presence: with sciatica Sciatica laterality: bilateral sciatica Qualified Code(s): M54.42 - Lumbago with sciatica, left side; M54.41 - Lumbago with sciatica, right side (4) Lumbar canal stenosis Qualifiers: Neurogenic claudication status: with neurogenic claudication Qualified Code(s): M48.062 - Spinal stenosis, lumbar region with neurogenic claudication (5) COPD (chronic obstructive pulmonary disease) Qualifiers: COPD type: unspecified COPD Qualified Code(s): J44.9 - Chronic obstructive pulmonary disease, unspecified
[2019-01-05] MEDS ORDERED: Albuterol 2.5 MG/3 ML NEBULIZER IH PRN (17:00)
[2019-01-05] MEDS: LYSINE PO SCH (17:58)
[2019-01-05] MEDS ORDERED: Isovue-370 500 ML BOTTLE IVP ONE (18:54)
[2019-01-05] MEDS: *HR* HYDROcodone/Acet 5/325 mg TABLET PO PRN (21:09)
[2019-01-06] MEDS: *HR* OxyCODONE Immed Rel 5 MG TABLET PO PRN ×5 (00:26→19:34)
--- NOTE | 2019-01-06 07:20 | Orthopedics Progress Note ---
Date of Encounter: 01/06/19 Time of Encounter: 07:19 Subjective Principal diagnosis: s/p PLIF Interval history: Patient resting this morning no specific complaints Afebrile vital signs stable Bilateral lower extremity Neurovascular intact Calves nontender Continue postoperative care Objective Vital signs: Vital Signs Temp Pulse Resp BP Pulse Ox 01/06/19 03:56 98.0 F 110 15 95/60 95 01/05/19 23:21 98.5 F 103 15 100/54 93 01/05/19 19:59 97.6 F 113 16 131/71 97 01/05/19 16:26 98.7 F 117 16 116/70 92 01/05/19 10:51 97.7 F 74 17 129/62 94 01/05/19 07:37 18 92 Intake and Output 01/05/19 01/05/19 01/06/19 15:59 23:59 07:59 Intake Total 240 / 240 340 / 340 440 / 440 Output Total 0 / 0 0 / 0 Balance 240 / 240 340 / 340 440 / 440 Intake: Oral 240 / 240 340 / 340 440 / 440 Output: Urine 0 / 0 0 / 0 Other: Meal Lunch Percent of Meal Consumed 60% 100% # Voids 1 1 Weight 72.9 kg Patient Weight 01/06/19 23:59 Weight 72.9 kg - Labs CBC & BMP: 01/05/19 02:14 01/05/19 02:14 Labs: Abnormal lab results WBC 15.3 K/mcL (4.3-11.1) H D 01/05/19 02:14 Hgb 10.6 g/dL (11.5-15.4) L D 01/05/19 02:14 Hct 32.7 % (35.3-44.9) L 01/05/19 02:14 MCV 79.4 fL (83.0-100.0) L 01/05/19 02:14 MCH 25.7 pg (28.0-33.3) L 01/05/19 02:14 RDW 15.4 % (11.5-14.5) H 01/05/19 02:14 Neutrophils # 13.1 K/mcL (1.6-8.9) H 01/05/19 02:14 Carbon Dioxide 30 mEq/L (23-29) H 01/05/19 02:14 Creatinine 0.56 mg/dL (0.60-1.20) L 01/05/19 02:14 Glucose 143 mg/dL (70-105) H 01/05/19 02:14 Serum Total Protein 5.5 g/dL (6.4-8.9) L 01/05/19 02:14 Globulin 2.0 g/dL (2.4-3.5) L 01/05/19 02:14 Consult Discharge Plan - Plan Referrals: Johnny Swartz MD [Primary Care Provider] -
[2019-01-06 07:52] LABS: Basophils % 0.4 %; Hematocrit 33.1 % (35.3-44.9); Hemoglobin 10.5 g/dL (11.5-15.4); Immature Granulocytes % 0.4 % (0-4); Lymphocytes # 2.1 K/mcL (0.6-4.6); Lymphocytes % 25.1 %; Mean Corpuscular HGB Conc 31.7 g/dL (31.6-35.5); Mean Corpuscular Hemoglobin 25.9 pg (28.0-33.3); Mean Corpuscular Volume 81.7 fL (83.0-100.0); Mean Platelet Volume 10.8 fL (9.4-12.4); Monocytes # 0.9 K/mcL (0.0-1.3); Monocytes % 10.5 %; Neutrophils # 5.2 K/mcL (1.6-8.9); Platelet Count 175 K/mcL (140-400); Red Blood Count 4.05 M/mcL (3.82-4.97); Red Cell Distribution Width 15.7 % (11.5-14.5); Segmented Neutrophils % 63.6 %
[2019-01-06] MEDS: Cholecalciferol (D-3) 1,000 UNIT TABLET PO SCH (08:03)
[2019-01-06] MEDS: Ascorbic Acid 500 MG TABLET PO SCH (08:04)
[2019-01-06] MEDS: LYSINE PO SCH (08:06)
[2019-01-06] MEDS: Budesonide/Formoterol 80/4.5 MDI IH SCH (08:11)
[2019-01-06] MEDS: *HR* HYDROcodone/Acet 5/325 mg TABLET PO PRN (08:14)
[2019-01-06 08:50] LABS: BUN/Creatinine Ratio 28 (6-26); Blood Urea Nitrogen 15 mg/dL (8-23); Calcium 8.6 mg/dL (8.6-10.3); Carbon Dioxide 32 mEq/L (23-29); Chloride 102 mEq/L (98-107); Glucose 129 mg/dL (70-105); Osmolality,Calculated 291 (280-300); Potassium 3.5 mEq/L (3.5-5.1); Sodium 139 mEq/L (136-145); eGFR For Non-African Americans > 60 (> 60)
--- NOTE | 2019-01-06 10:07 | Internal Med Progress Note ---
<Kristi Munson - Last Filed: 01/06/19 10:04> Hospitalist Progress Note - Encounter Date of Encounter: 01/06/19 Time of Encounter: 09:50 - Subjective Interval History: Patient seen and examined at bedside. She is alert and oriented times 3. She denies shortness of breath, chest pain, cough. She does report that she does have back pain but the pain medication makes it tolerable. Last night a CTA of chest was performed to rule out a PE due to the patient having sudden tachycardia in the setting of recent back surgery, with results negative for PE. - Exam Vitals: Temp Pulse Resp BP Pulse Ox 97.9 F 106 16 100/64 90 01/06/19 07:00 01/06/19 07:00 01/06/19 08:12 01/06/19 07:00 01/06/19 08:12 Exam: Gen.: Vitals noted. No acute distress. AAOx3 HEENT: oropharynx clear, Normocephalic, atraumatic Cardiac: RRR, no murmur, +S1/S2 Pulmonary: CTA bilaterally, no wheezes, rales or rhonchi, equal chest expansion Abdomen: soft, nontender, Bowel sounds noted, no guarding Extremities: no BLE edema, nontender calf, no cyanosis or clubbing, pulses p resent bilaterally Neuro: A&Ox3, moves all extremities, no focal deficits Psych: Appropriate mood and behavior - Assessment and Plan (1) Spondylolisthesis at L4-L5 level Current Visit: Yes Status: Chronic Assessment and Plan: Patient presented with back pain, multiple falls, numbness of bilateral lower extremities. -01/02/2019 lumbar spine MRI showing severe spinal canal stenosis at L4-L5 secondary to grade 1 anterolisthesis, posterior disc osteophyte complex, central and left central disc herniations, facet degenerative changes, and ligaments flavorsome thickening. Severe bilateral lateral recess stenosis. Mass effect on the nerve roots. Enhancement of nerves at L4-L5 may be secondary to compressive etiologies. Curvilinear appearance of the nerve roots proximately, likely secondary to severe stenosis at L4-L5. -s/p 01/03/2019 lumbar interbody fusion L4-L5 -lumbar x-ray status post L4-L5 fusion. Degenerative disc disease. Plan: -patient to go to rehab upon discharge -patient is to wear wear brace when she is up and avoid bending stomach -PT/OT continued -continue pain management -ortho following (2) Back pain Current Visit: Yes Status: Acute Assessment and Plan: Back pain secondary to spondylolisthesis at L4-L5. -Plan as above (3) Bilateral leg numbness Current Visit: Yes Status: Acute Assessment and Plan: Patient reports that bilateral leg numbness has significantly improved where she only has it in her feet now. -Likely secondary to the severe lumbar stenosis -bilateral lower extremity pulses present -will continue to monitor (4) Lumbar canal stenosis Current Visit: Yes Status: Acute Assessment and Plan: Plan as above (5) COPD (chronic obstructive pulmonary disease) Current Visit: Yes Status: Chronic Assessment and Plan: History of COPD taking Advair and pro-air -patient with some shortness of breath but weaning supplemental oxygen -continue Symbicort -continue incentive spirometry (6) Anxiety Current Visit: Yes Status: Chronic Assessment and Plan: Anxiety controlled with Cymbalta. -Continue her medication (7) DVT prophylaxis Current Visit: Yes Status: Acute Assessment and Plan: Heparin SQ Comments: subq heparin (8) Tachycardia Current Visit: Yes Status: Acute Assessment and Plan: Tachycardia 106. -May be secondary to the pain the patient reports she is then from the surgery -Last night a CTA of chest was performed to rule out a PE due to the patient having sudden tachycardia in the setting of recent back surgery, with results n egative for PE. -Will order labetalol PRN tachycardia -continue with pain management regimen - Time Spent with Patient Total time spent is greater than 50% in coordination of care (as documented) at patient's floor/unit and/or counseling patient: Internal Medicine: Result - Labs CBC & Chem 7: 01/06/19 07:29 01/06/19 07:29 Labs: Short CBC 01/06/19 Range/Units 07:29 WBC 8.2 (4.3-11.1) K/mcL Hgb 10.5 L (11.5-15.4) g/dL Hct 33.1 L (35.3-44.9) % Plt Count 175 (140-400) K/mcL Neutrophils # 5.2 (1.6-8.9) K/mcL BMP 01/06/19 07:29 Sodium 139 Potassium 3.5 Chloride 102 Carbon Dioxide 32 H BUN 15 Creatinine 0.53 L Glucose 129 H Calcium 8.6 - ABG Interpretation ABG results: PT/INR, D-dimer PT 10.1 Seconds (9.4-12.1) 01/02/19 13:53 - Impressions Impressions Chest CTA 01/05/19 18:54 IMPRESSION: No evidence of pulmonary embolism or acute pulmonary abnormality. D/ / Raymundo Lisa MD / Raymundo Lisa MD Interpreting Provider: Raymundo Lisa MD Lumbar Spine X-Ray 01/06/19 08:42 IMPRESSION: Status post L4-L5 fusion. Degenerative disc disease. D/ / Adarsh Carter MD / Adarsh Carter MD Interpreting Provider: Adarsh Carter MD Consult Discharge Plan - Plan Referrals: Johnny Swartz MD [Primary Care Provider] - <Mendez Montes - Last Filed: 01/06/19 18:26> Hospitalist Progress Note - Encounter Date of Encounter: 01/06/19 - Exam Vitals: Temp Pulse Resp BP Pulse Ox 98.2 F 119 16 123/76 94 01/06/19 15:47 01/06/19 15:47 01/06/19 15:47 01/06/19 15:47 01/06/19 15:47 - Assessment and Plan (1) DVT prophylaxis Current Visit: Yes Status: Acute Comments: subq heparin (2) Back pain Current Visit: Yes Status: Acute (3) Bilateral leg numbness Current Visit: Yes Status: Acute (4) Lumbar canal stenosis Current Visit: Yes Status: Acute (5) COPD (chronic obstructive pulmonary disease) Current Visit: Yes Status: Chronic (6) Spondylolisthesis at L4-L5 level Current Visit: Yes Status: Chronic (7) Anxiety Current Visit: Yes Status: Chronic (8) Tachycardia Current Visit: Yes Status: Acute - Time Spent with Patient Total time spent is greater than 50% in coordination of care (as documented) at patient's floor/unit and/or counseling patient: Internal Medicine: Result - Labs CBC & Chem 7: 01/06/19 07:29 01/06/19 07:29 Labs: Short CBC 01/06/19 Range/Units 07:29 WBC 8.2 (4.3-11.1) K/mcL Hgb 10.5 L (11.5-15.4) g/dL Hct 33.1 L (35.3-44.9) % Plt Count 175 (140-400) K/mcL Neutrophils # 5.2 (1.6-8.9) K/mcL BMP 01/06/19 07:29 Sodium 139 Potassium 3.5 Chloride 102 Carbon Dioxide 32 H BUN 15 Creatinine 0.53 L Glucose 129 H Calcium 8.6 - ABG Interpretation ABG results: PT/INR, D-dimer PT 10.1 Seconds (9.4-12.1) 01/02/19 13:53 - Impressions Impressions Chest CTA 01/05/19 18:54 IMPRESSION: No evidence of pulmonary embolism or acute pulmonary abnormality. D/ / Raymundo Lisa MD / Raymundo Lisa MD Interpreting Provider: Raymundo Lisa MD Lumbar Spine X-Ray 01/06/19 08:42 IMPRESSION: Status post L4-L5 fusion. Degenerative disc disease. D/ / Adarsh Carter MD / Adarsh Carter MD Interpreting Provider: Adrash Carter MD - Attending Attestation I examined this patient and my medical decision-making was reviewed with the Resident Physician on 01/06/19. I agree with the documented findings, disposi tion and treatment plan as described except to the extent set forth below. Ms Cooley is currently admitted for spinal stenosis s/p laminectomy. She remains moderate to high risk due to potential for worsening clinical status. Ms Cooley is resting comfortably. Pain is OK today. No new issues. Exam alert Comfortable Mucus membranes dry Heart reg No wheeze abd soft No edema I/P 1. Spinal stenosis -s/p laminectomy - Doing OK 2. Tachycardia - improved. Most likely due to pain. Anticipate d/c when arranged. Further diagnoses and plan as above. <Kristi Munson - Last Filed: 01/06/19 10:04> (2) Back pain Qualifiers: Back pain location: low back pain Chronicity: acute Back pain laterality: midline Sciatica presence: with sciatica Sciatica laterality: bilateral sciatica Qualified Code(s): M54.42 - Lumbago with sciatica, left side; M54.41 - Lumbago with sciatica, right side (4) Lumbar canal stenosis Qualifiers: Neurogenic claudication status: with neurogenic claudication Qualified Code(s): M48.062 - Spinal stenosis, lumbar region with neurogenic claudication (5) COPD (chronic obstructive pulmonary disease) Qualifiers: COPD type: unspecified COPD Qualified Code(s): J44.9 - Chronic obstructive pulmonary disease, unspecified <Mendez Montes - Last Filed: 01/06/19 18:26> (2) Back pain Qualifiers: Back pain location: low back pain Chronicity: acute Back pain laterality: midline Sciatica presence: with sciatica Sciatica laterality: bilateral sciatica Qualified Code(s): M54.42 - Lumbago with sciatica, left side; M54.41 - Lumbago with sciatica, right side (4) Lumbar canal stenosis Qualifiers: Neurogenic claudication status: with neurogenic claudication Qualified Code(s): M48.062 - Spinal stenosis, lumbar region with neurogenic claudication (5) COPD (chronic obstructive pulmonary disease) Qualifiers: COPD type: unspecified COPD Qualified Code(s): J44.9 - Chronic obstructive pulmonary disease, unspecified
[2019-01-06] MEDS ORDERED: *HR* Labetalol 20 MG/4 ML SYRINGE IVP PRN ×2 (10:10→11:59)
[2019-01-07] MEDS: *HR* OxyCODONE Immed Rel 5 MG TABLET PO PRN ×4 (02:03→20:30)
[2019-01-07 07:11] LABS: Hematocrit 32.8 % (35.3-44.9); Hemoglobin 10.4 g/dL (11.5-15.4); Mean Corpuscular HGB Conc 31.7 g/dL (31.6-35.5); Mean Corpuscular Hemoglobin 25.7 pg (28.0-33.3); Mean Platelet Volume 11.1 fL (9.4-12.4); Platelet Count 186 K/mcL (140-400); Red Blood Count 4.05 M/mcL (3.82-4.97)
[2019-01-07 07:30] LABS: BUN/Creatinine Ratio 24 (6-26); Blood Urea Nitrogen 13 mg/dL (8-23); Calcium 8.9 mg/dL (8.6-10.3); Carbon Dioxide 31 mEq/L (23-29); Chloride 100 mEq/L (98-107); Glucose 114 mg/dL (70-105); Osmolality,Calculated 287 (280-300); Potassium 3.3 mEq/L (3.5-5.1); Sodium 138 mEq/L (136-145); eGFR For Non-African Americans > 60 (> 60)
[2019-01-07] MEDS: Budesonide/Formoterol 80/4.5 MDI IH SCH (07:57)
[2019-01-07] MEDS: Ascorbic Acid 500 MG TABLET PO SCH (09:02)
[2019-01-07] MEDS: Cholecalciferol (D-3) 1,000 UNIT TABLET PO SCH (09:02)
[2019-01-07] MEDS: LYSINE PO SCH (09:05)
[2019-01-07] MEDS: *HR* HYDROcodone/Acet 5/325 mg TABLET PO PRN (09:05)
--- NOTE | 2019-01-07 09:16 | Internal Med Progress Note ---
Hospitalist Progress Note - Encounter Date of Encounter: 01/07/19 Time of Encounter: 09:15 - Exam Vitals: Temp Pulse Resp BP Pulse Ox 98.4 F 111 15 118/79 92 01/07/19 06:58 01/07/19 06:58 01/07/19 07:58 01/07/19 06:58 01/07/19 07:58 - Assessment and Plan (1) DVT prophylaxis Current Visit: Yes Status: Acute Comments: subq heparin (2) Back pain Current Visit: Yes Status: Acute (3) Bilateral leg numbness Current Visit: Yes Status: Acute (4) Lumbar canal stenosis Current Visit: Yes Status: Acute (5) COPD (chronic obstructive pulmonary disease) Current Visit: Yes Status: Chronic (6) Spondylolisthesis at L4-L5 level Current Visit: Yes Status: Chronic (7) Anxiety Current Visit: Yes Status: Chronic (8) Tachycardia Current Visit: Yes Status: Acute - Time Spent with Patient Total time spent is greater than 50% in coordination of care (as documented) at patient's floor/unit and/or counseling patient: Internal Medicine: Result - Labs CBC & Chem 7: 01/07/19 06:05 01/07/19 06:05 Labs: Short CBC 01/07/19 Range/Units 06:05 WBC 7.3 (4.3-11.1) K/mcL Hgb 10.4 L (11.5-15.4) g/dL Hct 32.8 L (35.3-44.9) % Plt Count 186 (140-400) K/mcL BMP 01/07/19 06:05 Sodium 138 Potassium 3.3 L Chloride 100 Carbon Dioxide 31 H BUN 13 Creatinine 0.54 L Glucose 114 H Calcium 8.9 - ABG Interpretation ABG results: PT/INR, D-dimer PT 10.1 Seconds (9.4-12.1) 01/02/19 13:53 - Impressions Impressions Lumbar Spine X-Ray 01/06/19 08:42 IMPRESSION: Status post L4-L5 fusion. Degenerative disc disease. D/ / Adarsh Carter MD / Adarsh Carter MD Interpreting Provider: Adarsh Carter MD Consult Discharge Plan - Plan Referrals: Johnny Swartz MD [Primary Care Provider] - (2) Back pain Qualifiers: Back pain location: low back pain Chronicity: acute Back pain laterality: midline Sciatica presence: with sciatica Sciatica laterality: bilateral sciatica Qualified Code(s): M54.42 - Lumbago with sciatica, left side; M54.41 - Lumbago with sciatica, right side (4) Lumbar canal stenosis Qualifiers: Neurogenic claudication status: with neurogenic claudication Qualified Code(s): M48.062 - Spinal stenosis, lumbar region with neurogenic claudication (5) COPD (chronic obstructive pulmonary disease) Qualifiers: COPD type: unspecified COPD Qualified Code(s): J44.9 - Chronic obstructive pulmonary disease, unspecified
--- NOTE | 2019-01-07 12:09 | Orthopedics Progress Note ---
Date of Encounter: 01/07/19 Time of Encounter: 10:30 - Assessment and Plan (1) Spondylolisthesis Current Visit: Yes Status: Chronic Qualifiers: Spinal region: unspecified Qualified Code(s): M43.10 - Spondylolisthesis, site unspecified (2) Lumbar stenosis Current Visit: Yes Status: Chronic Qualifiers: Neurogenic claudication status: unspecified Qualified Code(s): M48.061 - Spinal stenosis, lumbar region without neurogenic claudication (3) Lumbar radiculopathy Current Visit: Yes Status: Chronic (4) Status post lumbar spinal fusion Current Visit: Yes Status: Acute Subjective Principal diagnosis: s/p PLIF Interval history: Date of procedure: 01/03/19 Pre-op diagnosis: Spondylolisthesis, lumbar stenosis, lumbar radiculopathy Post-op diagnosis: same Operation/Findings: Posterior lumbar interbody fusion L4-L5 The patient is without complaints. Admits to low back pain as to be expected. States she still wishes to go to rehab upon discharge. Vitals and labs reviewed. Dressing is clean dry and intact. Neurovascularly intact with regard to bilateral lower extremities. Fires all upper and lower extremity motor groups. Assessment :stable postop. Plan mobilize ,continue analgesics, discharge planning Scripts printed for discharge anticipated this weekend following lumbar xrays. Appropriate for discharge when medically appropriate. Reviewed and discussed with Dr. Mckoy. Objective Vital signs: Vital Signs Temp Pulse Resp BP Pulse Ox 01/07/19 11:20 98.4 F 99 16 101/64 93 01/07/19 07:58 15 92 01/07/19 06:58 98.4 F 111 15 118/79 92 01/07/19 05:11 98.2 F 114 17 120/73 93 01/06/19 19:21 98.1 F 119 17 110/71 96 01/06/19 15:47 98.2 F 119 16 123/76 94 Intake and Output 01/06/19 01/07/19 01/07/19 23:59 07:59 15:59 Intake Total 360 / 360 240 / 240 Balance 360 / 360 240 / 240 Intake: Oral 360 / 360 240 / 240 Other: Meal Breakfast Percent of Meal Consumed 50% # Voids 1 - Labs CBC & BMP: 01/07/19 06:05 01/07/19 06:05 Labs: Abnormal lab results Hgb 10.4 g/dL (11.5-15.4) L 01/07/19 06:05 Hct 32.8 % (35.3-44.9) L 01/07/19 06:05 MCV 81.0 fL (83.0-100.0) L 01/07/19 06:05 MCH 25.7 pg (28.0-33.3) L 01/07/19 06:05 RDW 15.0 % (11.5-14.5) H 01/07/19 06:05 Potassium 3.3 mEq/L (3.5-5.1) L 01/07/19 06:05 Carbon Dioxide 31 mEq/L (23-29) H 01/07/19 06:05 Creatinine 0.54 mg/dL (0.60-1.20) L 01/07/19 06:05 Glucose 114 mg/dL (70-105) H 01/07/19 06:05 Serum Total Protein 5.5 g/dL (6.4-8.9) L 01/05/19 02:14 Globulin 2.0 g/dL (2.4-3.5) L 01/05/19 02:14 Consult Discharge Plan - Plan Referrals: Johnny Swartz MD [Primary Care Provider] -
--- NOTE | 2019-01-07 14:31 | Discharge Summary ---
<Mendez Montes - Last Filed: 01/07/19 16:45> Orders not resulted at time of discharge: Pending orders 01/08/19 04:00 Basic Metabolic Panel AM 0400 Complete Blood Count [HEME] AM 0400 Magnesium AM 0400 Date of Encounter: 01/07/19 - Discharge Diagnosis (1) DVT prophylaxis Status: Acute (2) Back pain Priority: Secondary Status: Acute Qualifiers: Back pain location: low back pain Chronicity: acute Back pain laterality: midline Sciatica presence: with sciatica Sciatica laterality: bilateral sciatica Qualified Code(s): M54.42 - Lumbago with sciatica, left side; M54.41 - Lumbago with sciatica, right side (3) Bilateral leg numbness Priority: Secondary Status: Acute (4) Lumbar canal stenosis Priority: Primary Status: Acute Qualifiers: Neurogenic claudication status: with neurogenic claudication Qualified Code(s): M48.062 - Spinal stenosis, lumbar region with neurogenic claudication (5) COPD (chronic obstructive pulmonary disease) Priority: Secondary Status: Chronic Qualifiers: COPD type: unspecified COPD Qualified Code(s): J44.9 - Chronic obstructive pulmonary disease, unspecified (6) Spondylolisthesis at L4-L5 level Priority: Secondary Status: Chronic (7) Anxiety Priority: Secondary Status: Chronic (8) Tachycardia Priority: Secondary Status: Resolved Hospital course: Ms. Cooley is a 63 year old female - Time Spent with Patient Total time spent providing and/or coordinating discharge services: 34min - Discharge Medications Prescriptions: New OxyCODONE Immed Rel [Roxicodone 5 MG] 5 mg PO Q6HR PRN 5 Days #20 tablet PRN Reason: Severe Pain Docusate Sodium [Colace] 100 mg PO BID 5 Days #10 capsule Continue Cholecalciferol (D-3) [Vitamin D] 1,000 unit PO DAILY Ascorbate Calcium [Vitamin C] 500 mg PO DAILY Zolpidem [Ambien] 2.5 - 5 mg PO HS Fluticasone/Salmeterol [Advair 250-50 Diskus] 1 each IH DAILY #1 blst.w.dev Pregabalin [Lyrica] 100 mg PO BID Duloxetine HCl [Cymbalta] 60 mg PO DAILY Albuterol Sulfate [Albuterol Inhaler] 2 puff IH Q6H PRN PRN Reason: Shortness Of Breath Home Medications: Ascorbate Calcium [Vitamin C] 500 mg PO DAILY 01/18/18 [History] Cholecalciferol (D-3) [Vitamin D] 1,000 unit PO DAILY 01/18/18 [History] Zolpidem [Ambien] 2.5 - 5 mg PO HS 01/18/18 [History] Fluticasone/Salmeterol [Advair 250-50 Diskus] 1 each IH DAILY #1 blst.w.dev 01/20/18 [Rx] Duloxetine HCl [Cymbalta] 60 mg PO DAILY 01/02/19 [History] Pregabalin [Lyrica] 100 mg PO BID 01/02/19 [History] Albuterol Sulfate [Albuterol Inhaler] 2 puff IH Q6H PRN 01/04/19 [History] Docusate Sodium [Colace] 100 mg PO BID 5 Days #10 capsule 01/04/19 [Rx] OxyCODONE Immed Rel [Roxicodone 5 MG] 5 mg PO Q6HR PRN 5 Days #20 tablet 01/04/19 [Rx] Allergies/Adverse Reactions: Allergy/AdvReac Type Severity Reaction Status Date / Time No Known Allergies Allergy Verified 01/02/19 13:01 Date of admission: 01/05/19 17:20 Primary care physician: Johnny Swartz Consults: 01/02/19 17:57 Consult to Orthopedic Surgery [CONS] Stat Consulting Provider: [facility] Reason for Consult: Dr. Mckoy, lumbar canal stenosis Call Completed: Yes 01/04/19 00:49 Consult to Occupational Therapy [CONS] Routine Comment: Evaluate, develop and implement POC Reason for Consult: Postoperative rehabilitation Does patient have active BEDREST order?: No Is patient medically & hemodynamically stable?: Yes Patient assessed for mobility or mobilized this visit?: No Consult to Physical Therapy [CONS] Routine Comment: Evaluate, develop and implement POC Reason for Consult: Postoperative rehabilitation Does patient have active BEDREST order?: No Is patient medically & hemodynamically stable?: Yes Patient assessed for mobility or mobilized this visit?: No Consult to Spine Navigator [CONS] [CONS] Routine - Constitutional Vitals: Temp Pulse Resp BP Pulse Ox 98.4 F 109 18 120/73 93 01/07/19 15:16 01/07/19 15:16 01/07/19 15:16 01/07/19 15:16 01/07/19 15:16 - Patient Status Disposition: Transfer Inpatient Rehab Fac Condition: Good - Discharge Instructions Follow Up With: Johnny Swartz MD [Primary Care Provider] - Additional Instructions: Follow-up with your PCP in 3-5 days for reevaluation. Continue taking home medications. Take pain medications as directed. Increase activity as directed by physical and occupational therapy. Return to the emergency department if he developed fevers, chills, shortness of breath, increased heart rate, worsening pain, signs of infection, or fainting concerns arise. - Attending Attestation I examined this patient and my medical decision-making was reviewed with the Resident Physician on 01/07/19. I agree with the documented findings, disposition and treatment plan as described except to the extent set forth below. Ms Cooley has been admitted for spinal stenosis. She is s/p laminectomy. She is now afebrile and ready for discharge to rehab Exam alert Comfortable Mucus membranes dry Heart reg No wheeze abd soft Plan D/C to SNF when arranged today. <Zari Pratt N - Last Filed: 01/07/19 17:23> - NOTES TO OUTPATIENT PROVIDER Notes to Outpatient Provider: Patient presented to the emergency department with worsening back pain, and was found to have spondylo-this the cyst at L4-L5 with severe stenosis. She underwent L4-L5 interbody fusion, with good improvement in symptoms. Patient is ambulating with back brace, and is to be discharged to rehabilitation facility. Date of Encounter: 01/07/19 Time of Encounter: 14:31 - Discharge Diagnosis (1) Back pain Priority: Secondary Status: Acute Qualifiers: Back pain location: low back pain Chronicity: acute Back pain laterality: midline Sciatica presence: with sciatica Sciatica laterality: bilateral sciatica Qualified Code(s): M54.42 - Lumbago with sciatica, left side; M54.41 - Lumbago with sciatica, right side (2) Bilateral leg numbness Priority: Secondary Status: Acute (3) Lumbar canal stenosis Priority: Primary Status: Acute Qualifiers: Neurogenic claudication status: with neurogenic claudication Qualified Code(s): M48.062 - Spinal stenosis, lumbar region with neurogenic claudication (4) COPD (chronic obstructive pulmonary disease) Priority: Secondary Status: Chronic Qualifiers: COPD type: unspecified COPD Qualified Code(s): J44.9 - Chronic obstructive pulmonary disease, unspecified (5) Spondylolisthesis at L4-L5 level Priority: Secondary Status: Chronic (6) Anxiety Priority: Secondary Status: Chronic (7) Tachycardia Priority: Secondary Status: Resolved Hospital course: Ms. Cooley is a 63 year old female who presented to the emergency department due to worsening back pain. MRI of the spine with significant for CVA or spinal canal stenosis at L4-5 secondary to grade 1 anterior listhesis, posterior disc osteophyte complex, central and left central disc herniations, facet degenerative changes, and ligamentum flavum thickening. Patient was also noted to have curvilinear appearance of the nerve roots proximally, likely secondary to severe stenosis at L4-5. Patient was evaluated by spine surgeon, who noted severe stenosis at the L4-5 level to the point of myelographic block; therefore, patient was felt to be appropriate for L4-5 interbody fusion. Patient underwent this procedure on 01/03/19. Postprocedure x-ray on 01/04/19 demonstrated posterior fusion from L4-5 with discectomy at L4-5 and normal alignment. Patient did experience some postoperative pain; however, this was felt to be within the normal range of patient's having this procedure. She was able to produce pain in physical and occupational therapy with the use of a back brace. Patient did have some tachycardia postoperatively; CTA of the chest on 01/05/19 was negative for pulmonary embolism. Patient continued to have improvement in back pain and was found to be making appropriate progress with physical therapy. She was discharged to rehabilitation facility for ongoing therapy. - Time Spent with Patient Total time spent providing and/or coordinating discharge services: Date of admission: 01/05/19 17:20 Primary care physician: Johnny Swartz Consults: 01/02/19 17:57 Consult to Orthopedic Surgery [CONS] Stat Consulting Provider: [facility] Reason for Consult: Dr. Mckoy, lumbar canal stenosis Call Completed: Yes 01/04/19 00:49 Consult to Occupational Therapy [CONS] Routine Comment: Evaluate, develop and implement POC Reason for Consult: Postoperative rehabilitation Does patient have active BEDREST order?: No Is patient medically & hemodynamically stable?: Yes Patient assessed for mobility or mobilized this visit?: No Consult to Physical Therapy [CONS] Routine Comment: Evaluate, develop and implement POC Reason for Consult: Postoperative rehabilitation Does patient have active BEDREST order?: No Is patient medically & hemodynamically stable?: Yes Patient assessed for mobility or mobilized this visit?: No Consult to Spine Navigator [CONS] [CONS] Routine Discharging clinician: Zari Pratt Anticipated date of discharge: 01/07/19 - Constitutional Vitals: Temp Pulse Resp BP Pulse Ox 98.4 F 99 16 101/64 93 01/07/19 11:20 01/07/19 11:20 01/07/19 11:20 01/07/19 11:20 01/07/19 11:20 Exam: GENERAL: Well-developed, well-nourished adult female in no acute stress. She is sitting in the bed comfortably. HEENT: Atraumatic and normocephalic. CARDIOVASCULAR: Regular rate and rhythm. S1 and S2 present. No murmurs, gallops, or rubs. RESPIRATORY: Clear to auscultation bilaterally. Chest rises and falls symmetrically without accessory muscle use. GASTROINTESTINAL: Abdomen is soft, nontender, nondistended. EXTREMITIES: No clubbing, cyanosis, or edema. SKIN: Warm, dry, and intact. NEUROLOGIC: Alert and oriented x3. Patient is cooperative with exam and answers questions appropriately. No apparent focal deficits. PSYCHIATRIC: Appropriate mood and affect. - Patient Status Functional capacity at discharge: independent ambulation Overall status at discharge: patient is progressing back to baseline - Diet and Activity Activity: as per physical therapy Diet: regular diet Addendum entered and electronically signed by Zari Pratt 01/10/19 11:18: Patient received insurance approval for ECF placement on 01/10/2019 and was discharged to rehab facility.
--- NOTE | 2019-01-07 17:24 | Physician Discharge Referral ---
[facility] Referral Info Provider in Charge: Dr. Mendez Montes Provider in Charge after Transfer: PCP - Diagnosis (1) Back pain Priority: Secondary Status: Acute (2) Bilateral leg numbness Priority: Secondary Status: Acute (3) Lumbar canal stenosis Priority: Primary Status: Acute (4) COPD (chronic obstructive pulmonary disease) Priority: Secondary Status: Chronic (5) Spondylolisthesis at L4-L5 level Priority: Secondary Status: Chronic (6) Anxiety Priority: Secondary Status: Chronic (7) Tachycardia Priority: Secondary Status: Resolved - Transfer Medications Home Medications: Ascorbate Calcium [Vitamin C] 500 mg PO DAILY 01/18/18 [History] Cholecalciferol (D-3) [Vitamin D] 1,000 unit PO DAILY 01/18/18 [History] Zolpidem [Ambien] 2.5 - 5 mg PO HS 01/18/18 [History] Fluticasone/Salmeterol [Advair 250-50 Diskus] 1 each IH DAILY #1 blst.w.dev 01/20/18 [Rx] Duloxetine HCl [Cymbalta] 60 mg PO DAILY 01/02/19 [History] Pregabalin [Lyrica] 100 mg PO BID 01/02/19 [History] Albuterol Sulfate [Albuterol Inhaler] 2 puff IH Q6H PRN 01/04/19 [History] Docusate Sodium [Colace] 100 mg PO BID 5 Days #10 capsule 01/04/19 [Rx] OxyCODONE Immed Rel [Roxicodone 5 MG] 5 mg PO Q6HR PRN 5 Days #20 tablet 01/04/19 [Rx] Allergies/Adverse Reactions: Allergy/AdvReac Type Severity Reaction Status Date / Time No Known Allergies Allergy Verified 01/02/19 13:01 - Respiratory Orders Smoking Cessation: Smoking cessation has been advised. For more information, call the [place] Tobacco Quit Line at 8-746-YREP-NOW. - Ancillary Orders May use pressure relief devices daily prn - Mobility Orders Ambulate - Rehabiliation Orders Rehab Potential: Good Rehab Orders: ROM Exercises, Evaluation for Physical Therapy, Evaluation for Occupational Therapy, Evaluation for Speech Therapy - Treatments Skin tear care topically daily PRN per policy - Diet Orders Regular CERTIFICATION: I certify that the transfer of the above named patient to an Extended Care Facility is necessary for the continuing treatment of the diagnosis listed. The above information is true and accurate reflection of patient's current condition. Confidential - Redisclosure prohibited without a patient's written consent.
[2019-01-08] MEDS: *HR* OxyCODONE Immed Rel 5 MG TABLET PO PRN ×4 (02:34→21:37)
[2019-01-08 02:56] LABS: Basophils % 0.4 %; Hematocrit 32.4 % (35.3-44.9); Hemoglobin 10.3 g/dL (11.5-15.4); Immature Granulocytes % 0.4 % (0-4); Lymphocytes # 1.8 K/mcL (0.6-4.6); Lymphocytes % 26.1 %; Mean Corpuscular HGB Conc 31.8 g/dL (31.6-35.5); Mean Corpuscular Hemoglobin 25.6 pg (28.0-33.3); Mean Corpuscular Volume 80.4 fL (83.0-100.0); Mean Platelet Volume 10.7 fL (9.4-12.4); Monocytes # 0.7 K/mcL (0.0-1.3); Monocytes % 9.6 %; Neutrophils # 4.4 K/mcL (1.6-8.9); Platelet Count 210 K/mcL (140-400); Red Blood Count 4.03 M/mcL (3.82-4.97); Red Cell Distribution Width 14.8 % (11.5-14.5); Segmented Neutrophils % 63.5 %
[2019-01-08 03:12] LABS: BUN/Creatinine Ratio 20 (6-26); Blood Urea Nitrogen 11 mg/dL (8-23); Calcium 8.6 mg/dL (8.6-10.3); Carbon Dioxide 31 mEq/L (23-29); Chloride 100 mEq/L (98-107); Glucose 121 mg/dL (70-105); Osmolality,Calculated 285 (280-300); Potassium 3.9 mEq/L (3.5-5.1); Sodium 137 mEq/L (136-145); eGFR For Non-African Americans > 60 (> 60)
[2019-01-08] MEDS: Budesonide/Formoterol 80/4.5 MDI IH SCH (07:57)
--- NOTE | 2019-01-08 08:11 | Internal Med Progress Note ---
<Zari Pratt N - Last Filed: 01/08/19 13:51> Hospitalist Progress Note - Encounter Date of Encounter: 01/08/19 Time of Encounter: 08:10 - Subjective Interval History: Ms. Cooley is a 63-year-old female was admitted to the hospital due to spondylolisthesis of L4-5, with subsequent lumbar spine fusion at this level. On evaluation today, patient reports normal postoperative back pain, and denies any fevers, chills, body aches, or other signs of infections. She is currently awaiting placement in rehabilitation facility, and states that she is eager to be discharged from hospital. She has been participating in physical and occupational therapy without difficulty. - Exam Vitals: Temp Pulse Resp BP Pulse Ox 98.4 F 97 18 105/64 96 01/08/19 07:47 01/08/19 07:47 01/08/19 07:57 01/08/19 07:47 01/08/19 07:57 Exam: GENERAL: Well-developed, well-nourished adult female in no acute distress. HEENT: Atraumatic and normocephalic. CARDIOVASCULAR: Regular rate and rhythm. S1 and S2 present. No murmurs, gallops, or rubs. RESPIRATORY: Clear to auscultation bilaterally. Chest rises and falls symmetrically without accessory muscle use. GASTROINTESTINAL: Abdomen is soft, nontender, nondistended. EXTREMITIES: No clubbing, cyanosis, or edema. SKIN: Warm, dry, and intact. NEUROLOGIC: Alert and oriented x3. Patient is cooperative with exam and answers questions appropriately. No apparent focal deficits. PSYCHIATRIC: Appropriate mood and affect. - Assessment and Plan (1) Spondylolisthesis at L4-L5 level Current Visit: Yes Status: Chronic Assessment and Plan: Patient presented with back pain, multiple falls, numbness of bilateral lower extremities. Lumbar spine MRI on 01/02/19 demonstrated severe spinal canal stenosis at L4-L5 secondary to grade 1 anterolisthesis, posterior disc osteophyte complex, central and left central disc herniations, facet degenerative changes, and ligaments flavorsome thickening. Severe bilateral lateral recess stenosis. Mass effect on the nerve roots. Enhancement of nerves at L4-L5 may be secondary to compressive etiologies. Curvilinear appearance of the nerve roots proximately, likely secondary to severe stenosis at L4-L5. Patient underwent lumbar spine interbody fusion at L4-5 on 01/03/19. Postoperative lumbar spine x-ray demonstrated successful fusion at this level, as well as degenerative disc disease. On evaluation today, patient reports normal postoperative pain. She has been ambulating well with physical therapy and use of back brace. - Awaiting insurance authorization for placement at rehabilitation facility. - Continue physical and occupational therapy. - Continue pain management PRN. (2) Back pain Current Visit: Yes Status: Acute Assessment and Plan: Back pain secondary to spondylolisthesis at L4-L5. S/p lumbar fusion at L4-5. Plan as above. (3) Bilateral leg numbness Current Visit: Yes Status: Acute Assessment and Plan: Patient reports that bilateral leg numbness has significantly improved. She also reports that her legs no longer feel like "jelly". - Continue physical and occupational therapy. - Will continue to monitor. (4) Lumbar canal stenosis Current Visit: Yes Status: Acute Assessment and Plan: Secondary to spondylolisthesis of L4-5; s/p interbody fusion. Plan as above. (5) COPD (chronic obstructive pulmonary disease) Current Visit: Yes Status: Chronic Assessment and Plan: History of COPD taking Advair and pro-air. Patient denies any shortness of breath on exam today. - Continue Symbicort and incentive spirometry. (6) Anxiety Current Visit: Yes Status: Chronic Assessment and Plan: Anxiety controlled with Cymbalta. - Continue home medication. Code(s): F41.9 - Anxiety disorder, unspecified DVT Prophylaxis: - SCDs. - Time Spent with Patient Total time spent is greater than 50% in coordination of care (as documented) at patient's floor/unit and/or counseling patient: Internal Medicine: Result - Labs CBC & Chem 7: 01/08/19 02:35 01/08/19 02:35 Labs: Short CBC 01/08/19 Range/Units 02:35 WBC 7.0 (4.3-11.1) K/mcL Hgb 10.3 L (11.5-15.4) g/dL Hct 32.4 L (35.3-44.9) % Plt Count 210 (140-400) K/mcL Neutrophils # 4.4 (1.6-8.9) K/mcL BMP 01/08/19 02:35 Sodium 137 Potassium 3.9 Chloride 100 Carbon Dioxide 31 H BUN 11 Creatinine 0.54 L Glucose 121 H Calcium 8.6 - ABG Interpretation ABG results: PT/INR, D-dimer PT 10.1 Seconds (9.4-12.1) 01/02/19 13:53 - VTE Documentation of Mechanical Device: Intermittent pneumatic compression device Consult Discharge Plan - Plan Additional Instructions: Follow-up with your PCP in 3-5 days for reevaluation. Continue taking home medications. Take pain medications as directed. Increase activity as directed by physical and occupational therapy. Return to the emergency department if he developed fevers, chills, shortness of breath, increased heart rate, worsening pain, signs of infection, or fainting concerns arise. Referrals: Johnny Swartz MD [Primary Care Provider] - <Mendez Montes - Last Filed: 01/08/19 17:24> Hospitalist Progress Note - Encounter Date of Encounter: 01/08/19 - Exam Vitals: Temp Pulse Resp BP Pulse Ox 98.5 F 101 16 103/55 95 01/08/19 15:10 01/08/19 15:10 01/08/19 15:10 01/08/19 15:10 01/08/19 15:10 - Assessment and Plan (1) Back pain Current Visit: Yes Status: Acute (2) Bilateral leg numbness Current Visit: Yes Status: Acute (3) Lumbar canal stenosis Current Visit: Yes Status: Acute (4) COPD (chronic obstructive pulmonary disease) Current Visit: Yes Status: Chronic (5) Spondylolisthesis at L4-L5 level Current Visit: Yes Status: Chronic (6) Anxiety Current Visit: Yes Status: Chronic Code(s): F41.9 - Anxiety disorder, unspecified - Time Spent with Patient Total time spent is greater than 50% in coordination of care (as documented) at patient's floor/unit and/or counseling patient: Internal Medicine: Result - Labs CBC & Chem 7: 01/08/19 02:35 01/08/19 02:35 Labs: Short CBC 01/08/19 Range/Units 02:35 WBC 7.0 (4.3-11.1) K/mcL Hgb 10.3 L (11.5-15.4) g/dL Hct 32.4 L (35.3-44.9) % Plt Count 210 (140-400) K/mcL Neutrophils # 4.4 (1.6-8.9) K/mcL BMP 01/08/19 02:35 Sodium 137 Potassium 3.9 Chloride 100 Carbon Dioxide 31 H BUN 11 Creatinine 0.54 L Glucose 121 H Calcium 8.6 - ABG Interpretation ABG results: PT/INR, D-dimer PT 10.1 Seconds (9.4-12.1) 01/02/19 13:53 - Attending Attestation I examined this patient and my medical decision-making was reviewed with the Resident Physician on 01/08/19. I agree with the documented findings, disposition and treatment plan as described except to the extent set forth below. Ms Cooley is currently admitted for spinal stenosis s/p laminectomy. She remains moderate to high risk due to potential for worsening clinical status. Ms Cooley is doing OK. Still awaiting precert for SNF. No new issues overnight. No fever or chills. Exam ALert Comfortable Mucus membranes dry Heart not tachy No wheeze abd soft I/P 1. Spinal stenosis s/p laminectomy 2 Tachycardia resolved Further diagnoses and plan as above. <Zari Pratt N - Last Filed: 01/08/19 13:51> (2) Back pain Qualifiers: Back pain location: low back pain Chronicity: acute Back pain laterality: midline Sciatica presence: with sciatica Sciatica laterality: bilateral sciatica Qualified Code(s): M54.42 - Lumbago with sciatica, left side; M54.41 - Lumbago with sciatica, right side (4) Lumbar canal stenosis Qualifiers: Neurogenic claudication status: with neurogenic claudication Qualified Code(s): M48.062 - Spinal stenosis, lumbar region with neurogenic claudication (5) COPD (chronic obstructive pulmonary disease) Qualifiers: COPD type: unspecified COPD Qualified Code(s): J44.9 - Chronic obstructive pulmonary disease, unspecified <Mendez Montes - Last Filed: 01/08/19 17:24> (1) Back pain Qualifiers: Back pain location: low back pain Chronicity: acute Back pain laterality: midline Sciatica presence: with sciatica Sciatica laterality: bilateral sciatica Qualified Code(s): M54.42 - Lumbago with sciatica, left side; M54.41 - Lumbago with sciatica, right side (3) Lumbar canal stenosis Qualifiers: Neurogenic claudication status: with neurogenic claudication Qualified Code(s): M48.062 - Spinal stenosis, lumbar region with neurogenic claudication (4) COPD (chronic obstructive pulmonary disease) Qualifiers: COPD type: unspecified COPD Qualified Code(s): J44.9 - Chronic obstructive pulmonary disease, unspecified
[2019-01-08] MEDS: Ascorbic Acid 500 MG TABLET PO SCH (08:37)
[2019-01-08] MEDS: Cholecalciferol (D-3) 1,000 UNIT TABLET PO SCH (08:37)
[2019-01-08] MEDS: LYSINE PO SCH (08:38)
[2019-01-09] MEDS: *HR* OxyCODONE Immed Rel 5 MG TABLET PO PRN ×4 (02:12→18:12)
[2019-01-09] MEDS: Budesonide/Formoterol 80/4.5 MDI IH SCH (07:59)
[2019-01-09] MEDS: Ascorbic Acid 500 MG TABLET PO SCH (08:08)
[2019-01-09] MEDS: Cholecalciferol (D-3) 1,000 UNIT TABLET PO SCH (08:08)
[2019-01-09] MEDS: LYSINE PO SCH (08:09)
--- NOTE | 2019-01-09 08:43 | Internal Med Progress Note ---
<Mendez Montes - Last Filed: 01/09/19 14:07> Hospitalist Progress Note - Encounter Date of Encounter: 01/09/19 - Exam Vitals: Temp Pulse Resp BP Pulse Ox 98.4 F 108 16 100/54 94 01/09/19 11:57 01/09/19 11:57 01/09/19 11:57 01/09/19 11:57 01/09/19 11:57 - Assessment and Plan (1) Back pain Current Visit: Yes Status: Acute (2) Bilateral leg numbness Current Visit: Yes Status: Acute (3) Lumbar canal stenosis Current Visit: Yes Status: Acute (4) COPD (chronic obstructive pulmonary disease) Current Visit: Yes Status: Chronic (5) Spondylolisthesis at L4-L5 level Current Visit: Yes Status: Chronic (6) Anxiety Current Visit: Yes Status: Chronic Code(s): F41.9 - Anxiety disorder, unspecified (7) Tachycardia Current Visit: Yes Status: Resolved - Time Spent with Patient Total time spent is greater than 50% in coordination of care (as documented) at patient's floor/unit and/or counseling patient: Internal Medicine: Result - Labs CBC & Chem 7: 01/08/19 02:35 01/08/19 02:35 - ABG Interpretation ABG results: PT/INR, D-dimer PT 10.1 Seconds (9.4-12.1) 01/02/19 13:53 Consult Discharge Plan - Plan Additional Instructions: Follow-up with your PCP in 3-5 days for reevaluation. Continue taking home medications. Take pain medications as directed. Increase activity as directed by physical and occupational therapy. Return to the emergency department if he developed fevers, chills, shortness of breath, increased heart rate, worsening pain, signs of infection, or fainting concerns arise. Referrals: Johnny Swartz MD [Primary Care Provider] - - Attending Attestation I examined this patient and my medical decision-making was reviewed with the Resident Physician on 01/09/19. I agree with the documented findings, dispo sition and treatment plan as described except to the extent set forth below. Ms Cooley is currently admitted for spinal stenosis s/p laminectomy. She remains moderate to high risk due to potential for worsening clinical status. Ms Cooley is feeling OK now. She had some increased leg pain earlier. No fever or chills. Waiting for precert for SNF. Exam ALert Comfortable Mucus membranes dry Heart not tachy No wheeze Abd soft Moves all extremities I/P 1. Spinal stenosis s/p laminectomy - waiting precert for SNF 2. Tachycardia resolved Further diagnoses and plan as above. Hopeful discharge today. <TerenceZari N - Last Filed: 01/09/19 15:02> Hospitalist Progress Note - Encounter Date of Encounter: 01/09/19 Time of Encounter: 08:43 - Subjective Interval History: Patient seen and evaluated at the bedside this morning. She reports continued post-operative pain, but denies any significant increase or change in her pain. She reports that she has been tolerating PO intake without complication; however, she states that she has not had a bowel movement since surgery, though she has been passing flatus. She denies any other concerns at this time. - Exam Vitals: Temp Pulse Resp BP Pulse Ox 98.4 F 102 15 110/74 95 01/09/19 07:07 01/09/19 07:07 01/09/19 07:07 01/09/19 08:05 01/09/19 07:07 Exam: GENERAL: Well-developed, well-nourished adult female sitting in bed in no acute distress. HEENT: Atraumatic and normocephalic. CARDIOVASCULAR: Regular rate and rhythm. S1 and S2 present. No murmurs, gallops, or rubs. RESPIRATORY: Clear to auscultation bilaterally. Chest rises and falls symmetrically without accessory muscle use. GASTROINTESTINAL: Abdomen is soft, nontender, nondistended. EXTREMITIES: No clubbing, cyanosis, or edema. SKIN: Warm, dry, and intact. NEUROLOGIC: Alert and oriented x3. Patient is cooperative with exam and answers questions appropriately. No apparent focal deficits. PSYCHIATRIC: Appropriate mood and affect. - Assessment and Plan (1) Spondylolisthesis at L4-L5 level Current Visit: Yes Status: Chronic Assessment and Plan: Patient presented with back pain, multiple falls, numbness of bilateral lower extremities. Lumbar spine MRI on 01/02/19 demonstrated severe spinal canal stenosis at L4-L5 secondary to grade 1 anterolisthesis, posterior disc osteophyte complex, central and left central disc herniations, facet degenerative changes, and ligaments flavorsome thickening. Severe bilateral lateral recess stenosis. Mass effect on the nerve roots. Enhancement of nerves at L4-L5 may be secondary to compressive etiologies. Curvilinear appearance of the nerve roots proximately, likely secondary to severe stenosis at L4-L5. Patient underwent lumbar spine interbody fusion at L4-5 on 01/03/19. Postoperative lumbar spine x-ray demonstrated successful fusion at this level, as well as degenerative disc disease. On evaluation today, patient reports normal postoperative pain. She has been ambulating well with physical therapy and use of back brace. - Awaiting insurance authorization for placement at rehabilitation facility. - Continue physical and occupational therapy. - Continue pain management PRN. (2) Back pain Current Visit: Yes Status: Acute Assessment and Plan: Back pain secondary to spondylolisthesis at L4-L5. S/p lumbar fusion at L4-5. Plan as above. (3) Constipation Current Visit: Yes Status: Acute Assessment and Plan: Likely secondary to use of opioids for post-operative pain. Patient has been on colace BID, but has not had a bowel movement since surgery. - Discontinue colace; start senna plus BID. (4) Bilateral leg numbness Current Visit: Yes Status: Acute Assessment and Plan: Patient reports that bilateral leg numbness has significantly improved. She also reports that her legs no longer feel like "jelly". - Continue physical and occupational therapy. - Will continue to monitor. (5) Lumbar canal stenosis Current Visit: Yes Status: Acute Assessment and Plan: Secondary to spondylolisthesis of L4-5; s/p interbody fusion. Plan as above. (6) COPD (chronic obstructive pulmonary disease) Current Visit: Yes Status: Chronic Assessment and Plan: History of COPD taking Advair and pro-air. Patient denies any shortness of breath on exam today. - Continue Symbicort and incentive spirometry. (7) Anxiety Current Visit: Yes Status: Chronic Assessment and Plan: Anxiety controlled with Cymbalta. - Continue home medication. Code(s): F41.9 - Anxiety disorder, unspecified (8) Tachycardia Current Visit: Yes Status: Resolved Assessment and Plan: Likely secondary to pain. - Continue labetalol PRN. DVT Prophylaxis: - SCDs. - Time Spent with Patient Total time spent is greater than 50% in coordination of care (as documented) at patient's floor/unit and/or counseling patient: Internal Medicine: Result - Labs CBC & Chem 7: 01/08/19 02:35 01/08/19 02:35 - ABG Interpretation ABG results: PT/INR, D-dimer PT 10.1 Seconds (9.4-12.1) 01/02/19 13:53 - VTE Documentation of Mechanical Device: Intermittent pneumatic compression device <Mendez Montes - Last Filed: 01/09/19 14:07> (1) Back pain Qualifiers: Back pain location: low back pain Chronicity: acute Back pain laterality: midline Sciatica presence: with sciatica Sciatica laterality: bilateral sciatica Qualified Code(s): M54.42 - Lumbago with sciatica, left side; M54.41 - Lumbago with sciatica, right side (3) Lumbar canal stenosis Qualifiers: Neurogenic claudication status: with neurogenic claudication Qualified Code(s): M48.062 - Spinal stenosis, lumbar region with neurogenic claudication (4) COPD (chronic obstructive pulmonary disease) Qualifiers: COPD type: unspecified COPD Qualified Code(s): J44.9 - Chronic obstructive pulmonary disease, unspecified <Zari Pratt N - Last Filed: 01/09/19 15:02> (2) Back pain Qualifiers: Back pain location: low back pain Chronicity: acute Back pain laterality: midline Sciatica presence: with sciatica Sciatica laterality: bilateral sciatica Qualified Code(s): M54.42 - Lumbago with sciatica, left side; M54.41 - Lumbago with sciatica, right side (3) Constipation Qualifiers: Constipation type: drug induced constipation Qualified Code(s): K59.03 - Drug induced constipation (5) Lumbar canal stenosis Qualifiers: Neurogenic claudication status: with neurogenic claudication Qualified Code(s): M48.062 - Spinal stenosis, lumbar region with neurogenic claudication (6) COPD (chronic obstructive pulmonary disease) Qualifiers: COPD type: unspecified COPD Qualified Code(s): J44.9 - Chronic obstructive pulmonary disease, unspecified
[2019-01-09] MEDS: Sennosides/Docusate Sodium TABLET PO SCH (21:44)
[2019-01-09] MEDS: *HR* HYDROcodone/Acet 5/325 mg TABLET PO PRN (21:44)
[2019-01-10] MEDS: *HR* OxyCODONE Immed Rel 5 MG TABLET PO PRN ×2 (05:53→12:25)
--- NOTE | 2019-01-10 08:02 | Internal Med Progress Note ---
<Zari Pratt N - Last Filed: 01/10/19 11:21> Hospitalist Progress Note - Encounter Date of Encounter: 01/10/19 Time of Encounter: 08:02 - Subjective Interval History: Patient was seen and evaluated at the bedside. She reports significant pain this morning, and states that it is radiating into her legs. She denies any fevers, chills, or signs of infection. She denies any other complaints or concerns. - Exam Vitals: Temp Pulse Resp BP Pulse Ox 98.6 F 117 15 127/74 94 01/09/19 23:50 01/09/19 23:50 01/09/19 23:50 01/09/19 23:50 01/09/19 23:50 Exam: GENERAL: Well-developed, well-nourished adult female sitting in bed in no acute distress. HEENT: Atraumatic and normocephalic. CARDIOVASCULAR: Regular rate and rhythm. S1 and S2 present. No murmurs, gallops, or rubs. RESPIRATORY: Clear to auscultation bilaterally. Chest rises and falls symmetrically without accessory muscle use. GASTROINTESTINAL: Abdomen is soft, nontender, nondistended. EXTREMITIES: No clubbing, cyanosis, or edema. SKIN: Warm, dry, and intact. NEUROLOGIC: Alert and oriented x3. Patient is cooperative with exam and answers questions appropriately. No apparent focal deficits. PSYCHIATRIC: Appropriate mood and affect. - Assessment and Plan (1) Spondylolisthesis at L4-L5 level Status: Chronic Assessment and Plan: Patient presented with back pain, multiple falls, numbness of bilateral lower extremities. Lumbar spine MRI on 01/02/19 demonstrated severe spinal canal stenosis at L4-L5 secondary to grade 1 anterolisthesis, posterior disc osteophyte complex, central and left central disc herniations, facet degenerative changes, and ligaments flavorsome thickening. Severe bilateral lateral recess stenosis. Mass effect on the nerve roots. Enhancement of nerves at L4-L5 may be secondary to compressive etiologies. Curvilinear appearance of the nerve roots proximately, likely secondary to severe stenosis at L4-L5. Patient underwent lumbar spine interbody fusion at L4-5 on 01/03/19. Postoperative lumbar spine x-ray demonstrated successful fusion at this level, as well as degenerative disc disease. On evaluation today, patient reports postoperative back pain with radiation into her legs. She has been ambulating well with physical therapy and use of back brace and walker. - Insurance authorization received today for rehab facility; patient will be discharged to [facility] today. - Continue physical and occupational therapy. - Continue pain management PRN with oxycodone and flexeril. (2) Back pain Status: Acute Assessment and Plan: Back pain secondary to spondylolisthesis at L4-L5. S/p lumbar fusion at L4-5. Plan as above. (3) Bilateral leg numbness Status: Acute Assessment and Plan: Patient reports that bilateral leg numbness has significantly improved. She also reports that her legs no longer feel like "jelly". - Continue physical and occupational therapy. - Will continue to monitor. (4) Lumbar canal stenosis Status: Acute Assessment and Plan: Secondary to spondylolisthesis of L4-5; s/p interbody fusion. Plan as above. (5) COPD (chronic obstructive pulmonary disease) Status: Chronic Assessment and Plan: History of COPD taking Advair and pro-air. Patient denies any shortness of breath on exam today. - Continue Symbicort and incentive spirometry. (6) Anxiety Status: Chronic Assessment and Plan: Anxiety controlled with Cymbalta. - Continue home medication. Code(s): F41.9 - Anxiety disorder, unspecified (7) Tachycardia Status: Resolved Assessment and Plan: Likely secondary to pain. - Continue labetalol PRN. (8) Constipation Status: Acute Assessment and Plan: Likely secondary to use of opioids for post-operative pain. Patient has been on colace BID, but has not had a bowel movement since surgery. She reports passing regular flatus. Abdomen exam is unremarkable, and patient does have active bowel sounds. - Continue colace BID. DVT Prophylaxis: - SCDs. - Time Spent with Patient Total time spent is greater than 50% in coordination of care (as documented) at patient's floor/unit and/or counseling patient: Internal Medicine: Result - Labs CBC & Chem 7: 01/08/19 02:35 01/08/19 02:35 - ABG Interpretation ABG results: PT/INR, D-dimer PT 10.1 Seconds (9.4-12.1) 01/02/19 13:53 - VTE Documentation of Mechanical Device: Intermittent pneumatic compression device Consult Discharge Plan - Plan Additional Instructions: Follow-up with your PCP in 3-5 days for reevaluation. Continue taking home medications. Take pain medications as directed. Increase activity as directed by physical and occupational therapy. Return to the emergency department if he developed fevers, chills, shortness of breath, increased heart rate, worsening pain, signs of infection, or fainting concerns arise. Discharge Instructions: Lumbar Please call [facility] ([phone]), your Primary Care Physician, or report to the ER if you have any of the following symptoms: Fever greater that 101.5, increased pain/redness/drainage/odor for your incision site or any other concerning symptoms. ACTIVITY * May Shower * No Tub Baths * No lifting greater than 10 pounds * No Smoking * No Swimming * No off Ground Activities (Running, Climbing, Ladders, Horseback Riding) * No Driving * Wear Back Brace when up walking if lumbar fusion done * Incentive Spirometer 10 times an hour MEDICATIONS: Upon discharge resume your home medications. Take all the medications as prescribed. Take a stool softener if taking narcotic pain medications. Stool softeners are only effective if you drink enough fluids. Drink 6-8 glass of water or fluids a day, unless this is not allowed for another health problem. Despite using stool softeners, if you haven't had a bowel movement in 3 days, please switch to a gentle laxative. Gentle laxatives are sold over the counter. You should have a bowel movement within 24 hours, if not call the office. You will be discharged from the hospital with a prescription for pain medication. You are encouraged to decrease the use of narcotic pain medication as tolerated. Should you require a refill, please call the office. It is best to call 48-72 hours in advance of needing a prescription refill so you don't run out of medication. WOUND CARE: Remove Dressing Tomorrow. Leave incision open to air. Pat dry when you get out of the shower. FOLLOW-UP: Please follow up with your surgeon in the orthopedic clinic in 2 weeks from the day of surgery. References: [employer] (www.[email or web address]) Referrals: Johnny Swartz MD [Primary Care Provider] - <Mendez Montes - Last Filed: 01/10/19 18:02> Hospitalist Progress Note - Encounter Date of Encounter: 01/10/19 - Exam Vitals: Temp Pulse Resp BP Pulse Ox 98.4 F 108 15 122/72 95 01/10/19 11:03 01/10/19 12:25 01/10/19 11:03 01/10/19 12:25 01/10/19 12:25 - Assessment and Plan (1) Back pain Status: Acute (2) Bilateral leg numbness Status: Acute (3) Lumbar canal stenosis Status: Acute (4) COPD (chronic obstructive pulmonary disease) Status: Chronic (5) Spondylolisthesis at L4-L5 level Status: Chronic (6) Anxiety Status: Chronic Code(s): F41.9 - Anxiety disorder, unspecified (7) Tachycardia Status: Resolved (8) Constipation Status: Acute - Time Spent with Patient Total time spent is greater than 50% in coordination of care (as documented) at patient's floor/unit and/or counseling patient: Internal Medicine: Result - Labs CBC & Chem 7: 01/08/19 02:35 01/08/19 02:35 - ABG Interpretation ABG results: PT/INR, D-dimer PT 10.1 Seconds (9.4-12.1) 01/02/19 13:53 - Attending Attestation I examined this patient and my medical decision-making was reviewed with the Resident Physician on 01/10/19. I agree with the documented findings, disposition and treatment plan as described except to the extent set forth below. Ms Cooley is currently admitted for acute spinal stenosis s/p laminectomy. She remains moderate risk at this time. Ms Cooley has some leg pain. No other acute issues Exam alert Comfortable Mucus membranes dry Heart reg No wheeze I/P 1. Spinal stenosis D/C to SNF today. <Zari Pratt N - Last Filed: 01/10/19 11:21> (2) Back pain Qualifiers: Back pain location: low back pain Chronicity: acute Back pain laterality: midline Sciatica presence: with sciatica Sciatica laterality: bilateral sciatica Qualified Code(s): M54.42 - Lumbago with sciatica, left side; M54.41 - Lumbago with sciatica, right side (4) Lumbar canal stenosis Qualifiers: Neurogenic claudication status: with neurogenic claudication Qualified Code(s): M48.062 - Spinal stenosis, lumbar region with neurogenic claudication (5) COPD (chronic obstructive pulmonary disease) Qualifiers: COPD type: unspecified COPD Qualified Code(s): J44.9 - Chronic obstructive pulmonary disease, unspecified (8) Constipation Qualifiers: Constipation type: drug induced constipation Qualified Code(s): K59.03 - Drug induced constipation <Mendez Montes - Last Filed: 01/10/19 18:02> (1) Back pain Qualifiers: Back pain location: low back pain Chronicity: acute Back pain laterality: midline Sciatica presence: with sciatica Sciatica laterality: bilateral sciatica Qualified Code(s): M54.42 - Lumbago with sciatica, left side; M54.41 - Lumbago with sciatica, right side (3) Lumbar canal stenosis Qualifiers: Neurogenic claudication status: with neurogenic claudication Qualified Code(s): M48.062 - Spinal stenosis, lumbar region with neurogenic claudication (4) COPD (chronic obstructive pulmonary disease) Qualifiers: COPD type: unspecified COPD Qualified Code(s): J44.9 - Chronic obstructive pulmonary disease, unspecified (8) Constipation Qualifiers: Constipation type: drug induced constipation Qualified Code(s): K59.03 - Drug induced constipation
[2019-01-10] MEDS: Budesonide/Formoterol 80/4.5 MDI IH SCH (08:09)
[2019-01-10] MEDS: Cholecalciferol (D-3) 1,000 UNIT TABLET PO SCH (09:17)
[2019-01-10] MEDS: Sennosides/Docusate Sodium TABLET PO SCH (09:17)
[2019-01-10] MEDS: Ascorbic Acid 500 MG TABLET PO SCH (09:17)
[2019-01-10] MEDS: LYSINE PO SCH (09:18)
[2019-01-10 12:33] VITALS: BP 122/72
== END 2019-01-10 13:42 | DRG 455 ==
LOC: 3NENU 12:49 → EMEROOARM 12:49 → SUATTDRO 19:43 → 3NENU 20:30
PROVIDERS: ADMIT Hospitalist; ATTEND Internal Medicine

== ENCOUNTER 2019-04-23 15:41 | Observation (INO) ==
[2019-04-23] MEDS ORDERED: 0.9 % Sodium Chloride 1,000 ML IVC ONE (15:58)
[2019-04-23] MEDS ORDERED: *HR* HYDROmorphone (PF) 1 MG/ML SYRINGE IVP ONE ×2 (16:19→17:48)
[2019-04-23] MEDS ORDERED: Ondansetron 4 MG/2 ML VIAL IVP ONE (16:19)
[2019-04-23 17:01] LABS: Basophils # 0.1 K/mcL (0.0-0.2); Eosinophils % 0.3 %; Hematocrit 46.2 % (35.3-44.9); Hemoglobin 14.8 g/dL (11.5-15.4); Immature Granulocytes % 0.5 % (0-4); Lymphocytes # 1.3 K/mcL (0.6-4.6); Lymphocytes % 21.8 %; Mean Corpuscular Hemoglobin 24.7 pg (28.0-33.3); Mean Corpuscular Volume 77.3 fL (83.0-100.0); Mean Platelet Volume 10.6 fL (9.4-12.4); Monocytes # 0.7 K/mcL (0.0-1.3); Monocytes % 11.6 %; Neutrophils # 3.8 K/mcL (1.6-8.9); Platelet Count 259 K/mcL (140-400); Red Blood Count 5.98 M/mcL (3.82-4.97); Red Cell Distribution Width 14.6 % (11.5-14.5); Segmented Neutrophils % 64.8 %; White Blood Count 5.9 K/mcL (4.3-11.1)
[2019-04-23 17:09] LABS: Prothrombin Time 10.8 Seconds (9.4-12.1)
[2019-04-23 17:12] LABS: Activated Partial Thrombo Time 32.2 Seconds (26.0-36.0)
[2019-04-23 17:26] LABS: Troponin I < 0.03 ng/mL (< 0.04)
[2019-04-23 17:27] LABS: Alanine Aminotransferase 14 Units/L (7-52); Albumin 4.3 g/dL (3.5-5.7); Albumin/Globulin Ratio 1.8 (1.1-2.2); Alkaline Phosphatase 88 Units/L (34-104); Aspartate Amino Transferase 17 Units/L (13-39); BUN/Creatinine Ratio 24 (6-26); Bilirubin,Direct 0.1 mg/dL (0.0-0.2); Bilirubin,Indirect 0.3 mg/dL (0.0-1.2); Bilirubin,Total 0.4 mg/dL (0.3-1.0); Blood Urea Nitrogen 14 mg/dL (8-23); Calcium 9.6 mg/dL (8.6-10.3); Carbon Dioxide 25 mEq/L (23-29); Chloride 104 mEq/L (98-107); Globulin 2.4 g/dL (2.4-3.5); Glucose 116 mg/dL (70-105); Osmolality,Calculated 287 (280-300); Potassium 3.7 mEq/L (3.5-5.1); Sodium 138 mEq/L (136-145); Total Protein 6.7 g/dL (6.4-8.9); eGFR For African Americans > 60 (> 60); eGFR For Non-African Americans > 60 (> 60)
[2019-04-23] MEDS ORDERED: Isovue-370 500 ML BOTTLE IVP ONE (19:07)
[2019-04-23] MEDS ORDERED: Ipratropium/Albuterol Neb 3 ML IH ONE (19:08)
[2019-04-23] MEDS ORDERED: methylPREDNISolone 125 MG/2 ML VIAL IVP ONE (19:08)
[2019-04-23] MEDS ORDERED: Azithromycin 500 MG in D5% in Water 250 ML IVPB ONE (20:38)
[2019-04-23] MEDS ORDERED: cefTRIAXone 1,000 MG in Water for inj. (sterile) 10 ML IVP ONE (20:38)
[2019-04-23] MEDS ORDERED: Acetaminophen 325 MG TABLET PO PRN (22:14)
[2019-04-23] MEDS ORDERED: Naloxone 0.4 MG/ML INJ IVP PRN (22:14)
[2019-04-23] MEDS ORDERED: Ipratropium/Albuterol Neb 3 ML IH PRN (22:15)
[2019-04-23] MEDS ORDERED: *HR* FentaNYL (PF) 100 MCG/2 ML VIAL IVP ONE (22:27)
[2019-04-23] MEDS ORDERED: GuaiFENesin Liq 200 MG/10 ML UDC PO PRN (22:28)
[2019-04-23] MEDS ORDERED: Ringers Solution, Lactated 1,000 ML IVC SCH (22:30)
[2019-04-24] MEDS: *HR* OxyCODONE Immed Rel 5 MG TABLET PO PRN ×3 (01:06→21:06)
[2019-04-24] MEDS: Ipratropium Neb 0.5 MG NEBULIZER IH SCH ×3 (04:28→15:29)
[2019-04-24] MEDS: Levalbuterol Neb 1.25 MG/3 ML IH SCH ×3 (04:29→15:29)
[2019-04-24] MEDS: *HR* Heparin 5,000 UNIT/ML VIAL SQ SCH ×2 (05:28→17:59)
[2019-04-24] MEDS: predniSONE 20 MG TABLET PO SCH (08:19)
[2019-04-24] MEDS: Ascorbic Acid 500 MG TABLET PO SCH (08:19)
[2019-04-24] MEDS: Cholecalciferol (D-3) 1,000 UNIT (25MCG) TABLET PO SCH (08:19)
[2019-04-24] MEDS ORDERED: Pregabalin 50 MG CAPSULE PO SCH (21:00)
[2019-04-25 01:53] LABS: Hematocrit 39.3 % (35.3-44.9); Immature Granulocytes % 0.6 % (0-4); Lymphocytes # 0.8 K/mcL (0.6-4.6); Lymphocytes % 7.5 %; Mean Corpuscular HGB Conc 31.3 g/dL (31.6-35.5); Mean Corpuscular Hemoglobin 24.4 pg (28.0-33.3); Mean Corpuscular Volume 77.8 fL (83.0-100.0); Mean Platelet Volume 11.7 fL (9.4-12.4); Monocytes # 0.5 K/mcL (0.0-1.3); Monocytes % 4.9 %; Platelet Count 238 K/mcL (140-400); Red Blood Count 5.05 M/mcL (3.82-4.97); Red Cell Distribution Width 14.7 % (11.5-14.5)
[2019-04-25 01:56] LABS: Hemoglobin 12.3 g/dL (11.5-15.4); Neutrophils # 9.6 K/mcL (1.6-8.9)
[2019-04-25 02:02] LABS: BUN/Creatinine Ratio 26 (6-26); Blood Urea Nitrogen 15 mg/dL (8-23); Calcium 9.3 mg/dL (8.6-10.3); Carbon Dioxide 26 mEq/L (23-29); Chloride 106 mEq/L (98-107); Glucose 146 mg/dL (70-105); Osmolality,Calculated 293 (280-300); Potassium 4.4 mEq/L (3.5-5.1); Sodium 140 mEq/L (136-145); eGFR For African Americans > 60 (> 60); eGFR For Non-African Americans > 60 (> 60)
[2019-04-25] MEDS: *HR* Heparin 5,000 UNIT/ML VIAL SQ SCH (05:48)
[2019-04-25 07:44] VITALS: BP 123/63
[2019-04-25] MEDS: Cholecalciferol (D-3) 1,000 UNIT (25MCG) TABLET PO SCH (08:22)
[2019-04-25] MEDS: predniSONE 20 MG TABLET PO SCH (08:22)
[2019-04-25] MEDS: Ascorbic Acid 500 MG TABLET PO SCH (08:22)
[2019-04-25] MEDS: *HR* OxyCODONE Immed Rel 5 MG TABLET PO PRN (10:42)
== END 2019-04-25 13:12 | disposition home or self-care (01) ==
LOC: 3BNU 15:41 → EMEROOARM 15:41 → 3BNU 22:35
PROVIDERS: ADMIT Internal Medicine; ATTEND Internal Medicine

== ENCOUNTER 2020-04-22 11:31 | Inpatient (IN) ==
[2020-04-22] MEDS ORDERED: Isovue-370 500 ML BOTTLE IVP ONE (12:01)
[2020-04-22 12:12] LABS: Basophils # 0.1 K/mcL (0.0-0.2); Basophils % 0.6 %; Eosinophils # 0.2 K/mcL (0.0-0.6); Eosinophils % 1.5 %; Hematocrit 43.8 % (35.3-44.9); Hemoglobin 13.9 g/dL (11.5-15.4); Immature Granulocytes % 0.6 % (0-4); Lymphocytes # 1.8 K/mcL (0.6-4.6); Lymphocytes % 12.6 %; Mean Corpuscular HGB Conc 31.7 g/dL (31.6-35.5); Mean Corpuscular Hemoglobin 24.8 pg (28.0-33.3); Mean Corpuscular Volume 78.2 fL (83.0-100.0); Mean Platelet Volume 10.6 fL (9.4-12.4); Monocytes # 1.2 K/mcL (0.0-1.3); Monocytes % 8.7 %; Neutrophils # 10.6 K/mcL (1.6-8.9); Platelet Count 298 K/mcL (140-400); Red Cell Distribution Width 15.1 % (11.5-14.5)
[2020-04-22 12:25] LABS: INR 1.1; Prothrombin Time 12.2 Seconds (9.4-12.1)
[2020-04-22 12:27] LABS: Activated Partial Thrombo Time 30.1 Seconds (26.0-36.0)
[2020-04-22 12:32] LABS: Alanine Aminotransferase 9 Units/L (7-52); Albumin 4.3 g/dL (3.5-5.7); Albumin/Globulin Ratio 1.7 (1.1-2.2); Alkaline Phosphatase 121 Units/L (34-104); Aspartate Amino Transferase 11 Units/L (13-39); BUN/Creatinine Ratio 23 (6-26); Bilirubin,Direct 0.1 mg/dL (0.0-0.2); Bilirubin,Indirect 0.6 mg/dL (0.0-1.0); Bilirubin,Total 0.7 mg/dL (0.3-1.0); Blood Urea Nitrogen 16 mg/dL (8-23); Calcium 9.1 mg/dL (8.6-10.3); Carbon Dioxide 26 mEq/L (23-29); Chloride 103 mEq/L (98-107); Globulin 2.5 g/dL (2.4-3.5); Glucose 116 mg/dL (70-105); Magnesium 1.9 mg/dL (1.6-2.6); Osmolality,Calculated 286 (280-300); Potassium 3.7 mEq/L (3.5-5.1); Sodium 137 mEq/L (136-145); Total Protein 6.8 g/dL (6.4-8.9); Troponin I < 0.03 ng/mL (< 0.04); eGFR For African Americans > 60 (> 60); eGFR For Non-African Americans > 60 (> 60)
[2020-04-22 13:09] LABS: Adenovirus Not Detected (Not Detect); Bordetella Pertussis Not Detected (Not Detect); Chlamydophila pneumoniae Not Detected (Not Detect); Coronavirus 229E Not Detected (Not Detect); Coronavirus HKU1 Not Detected (Not Detect); Coronavirus NL63 Not Detected (Not Detect); Coronavirus OC43 Not Detected (Not Detect); Human Metapneumovirus Not Detected (Not Detect); Human Rhinovirus/Enterovirus Not Detected (Not Detect); Influenza A Subtype 2009 H1 Not Detected (Not Detect); Influenza B Not Detected (Not Detect); Mycoplasma pneumoniae Not Detected (Not Detect); Parainfluenza Virus 1 Not Detected (Not Detect); Parainfluenza Virus 2 Not Detected (Not Detect); Parainfluenza Virus 3 Not Detected (Not Detect); Parainfluenza Virus 4 Not Detected (Not Detect); Respiratory Syncytial Virus Not Detected (Not Detect); SARS-CoV-2 Not Detected (Not Detect)
[2020-04-22] MEDS ORDERED: Albuterol 2.5 MG/3 ML NEBULIZER IH PRN (13:10)
[2020-04-22] MEDS ORDERED: methylPREDNISolone 125 MG/2 ML VIAL IVP ONE (13:10)
[2020-04-22 13:21] LABS: Bilirubin,Urine Negative (Negative); Blood,Urine Negative (Negative); Clarity,Urine Clear (Clear); Color,Urine Light-Yellow (Yellow); Glucose,Urine (UA) Normal (Normal); Ketones,Urine Negative (Negative); Leukocyte Esterase,Urine Negative (Negative); Nitrite,Urine Negative (Negative); Protein,Urine Trace mg/dL (Neg-Trace); Specific Gravity,Urine > 1.030 (1.010-1.025); Urobilinogen,Urine Normal (Normal)
[2020-04-22] MEDS ORDERED: 0.9 % Sodium Chloride 1,000 ML IVC ONE (13:24)
[2020-04-22] MEDS ORDERED: Naloxone 0.4 MG/ML INJ IVP PRN (15:02)
[2020-04-22] MEDS ORDERED: Ondansetron ODT 4 MG TAB.RAPDIS SL PRN (15:02)
[2020-04-22] MEDS ORDERED: Nitroglycerin 0.4 MG TAB.SUBL SL PRN (15:05)
[2020-04-22] MEDS: *HR* Heparin 5,000 UNIT/ML VIAL SQ SCH (17:09)
[2020-04-22] MEDS: Aspirin 325 MG TABLET PO ONE ×2 (17:09→17:10)
[2020-04-22] MEDS: Acetaminophen 325 MG TABLET PO PRN (17:10)
[2020-04-22] MEDS: Ipratropium/Albuterol Neb 3 ML IH SCH ×3 (18:24→23:40)
[2020-04-22] MEDS: Budesonide/Formoterol 160/4.5 1 PUFF INH IH SCH (20:48)
[2020-04-23 01:04] LABS: Basophils % 0.1 %; Hematocrit 40.4 % (35.3-44.9); Hemoglobin 12.7 g/dL (11.5-15.4); Immature Granulocytes % 0.7 % (0-4); Lymphocytes # 0.6 K/mcL (0.6-4.6); Mean Corpuscular HGB Conc 31.4 g/dL (31.6-35.5); Mean Corpuscular Volume 79.7 fL (83.0-100.0); Mean Platelet Volume 10.7 fL (9.4-12.4); Monocytes # 0.1 K/mcL (0.0-1.3); Monocytes % 1.1 %; Neutrophils # 9.5 K/mcL (1.6-8.9); Platelet Count 258 K/mcL (140-400); Red Blood Count 5.07 M/mcL (3.82-4.97); Segmented Neutrophils % 92.1 %; White Blood Count 10.3 K/mcL (4.3-11.1)
[2020-04-23 01:22] LABS: BUN/Creatinine Ratio 26 (6-26); Blood Urea Nitrogen 18 mg/dL (8-23); Calcium 8.9 mg/dL (8.6-10.3); Carbon Dioxide 21 mEq/L (23-29); Chloride 103 mEq/L (98-107); Glucose 254 mg/dL (70-105); Osmolality,Calculated 293 (280-300); Potassium 3.3 mEq/L (3.5-5.1); Sodium 136 mEq/L (136-145); eGFR For African Americans > 60 (> 60); eGFR For Non-African Americans > 60 (> 60)
[2020-04-23] MEDS: Ipratropium/Albuterol Neb 3 ML IH SCH ×3 (03:41→11:09)
[2020-04-23] MEDS: *HR* Heparin 5,000 UNIT/ML VIAL SQ SCH ×2 (05:22→18:22)
[2020-04-23] MEDS: Budesonide/Formoterol 160/4.5 1 PUFF INH IH SCH ×2 (07:38→22:36)
[2020-04-23] MEDS ORDERED: Regadenoson 0.4 MG/5 ML SYRINGE IVP ONE (08:43)
[2020-04-23] MEDS: Cholecalciferol (D-3) 1,000 UNIT (25MCG) TABLET PO SCH (09:26)
[2020-04-23] MEDS: predniSONE 20 MG TABLET PO SCH (09:26)
[2020-04-23] MEDS: Ascorbic Acid 500 MG TABLET PO SCH (09:26)
[2020-04-23] MEDS ORDERED: Perflutren Lipid Microsphere 1.3 ML in 0.9 % Sodium Chloride 8.7 ML IVP PRN (10:04)
[2020-04-23] MEDS ORDERED: D5% in Water 1,000 ML IVC PRN (10:05)
[2020-04-23] MEDS ORDERED: Dextrose Gel 15 GM/37.5 ML TUBE PO PRN ×2 (10:05)
[2020-04-23] MEDS ORDERED: *HR* Dextrose 50 % in Water (Vial) 50 ML VIAL IVP PRN (10:05)
[2020-04-23 10:52] LABS: Estimated Average Glucose 128 mg/dl; Hemoglobin A1C 6.1 %
[2020-04-23] MEDS: Azithromycin 250 MG TABLET PO SCH (10:52)
[2020-04-23] MEDS: *HR* OxyCODONE/APAP 5/325 TABLET PO PRN ×2 (10:52→19:17)
[2020-04-23] MEDS ORDERED: Levalbuterol Neb 1.25 MG/3 ML IH SCH (16:00)
[2020-04-23] MEDS: Ipratropium Neb 0.5 MG NEBULIZER IH PRN (18:34)
[2020-04-23] MEDS: Levalbuterol Neb 1.25 MG/3 ML IH PRN (18:35)
[2020-04-24 05:07] LABS: BUN/Creatinine Ratio 43 (6-26); Blood Urea Nitrogen 26 mg/dL (8-23); Calcium 8.9 mg/dL (8.6-10.3); Carbon Dioxide 24 mEq/L (23-29); Chloride 106 mEq/L (98-107); Glucose 135 mg/dL (70-105); Osmolality,Calculated 293 (280-300); Potassium 4.4 mEq/L (3.5-5.1); Sodium 138 mEq/L (136-145); eGFR For African Americans > 60 (> 60); eGFR For Non-African Americans > 60 (> 60)
[2020-04-24] MEDS: *HR* Heparin 5,000 UNIT/ML VIAL SQ SCH ×2 (05:29→17:30)
[2020-04-24] MEDS: Budesonide/Formoterol 160/4.5 1 PUFF INH IH SCH ×2 (08:20→20:04)
[2020-04-24] MEDS: Cholecalciferol (D-3) 1,000 UNIT (25MCG) TABLET PO SCH (08:36)
[2020-04-24] MEDS: *HR* OxyCODONE/APAP 5/325 TABLET PO PRN ×2 (08:36→20:29)
[2020-04-24] MEDS: Azithromycin 250 MG TABLET PO SCH (08:36)
[2020-04-24] MEDS: Ascorbic Acid 500 MG TABLET PO SCH (08:36)
[2020-04-24] MEDS: predniSONE 20 MG TABLET PO SCH (08:36)
[2020-04-24] MEDS: Levalbuterol Neb 1.25 MG/3 ML IH PRN (09:36)
[2020-04-24] MEDS: Ipratropium Neb 0.5 MG NEBULIZER IH PRN (09:36)
[2020-04-24] MEDS ORDERED: Ketorolac 15 MG/ML VIAL IVP ONE (14:10)
[2020-04-24] MEDS: Albuterol 2.5 MG/3 ML NEBULIZER IH PRN (16:33)
[2020-04-25] MEDS: *HR* Heparin 5,000 UNIT/ML VIAL SQ SCH ×2 (05:30→17:23)
[2020-04-25] MEDS: Albuterol 2.5 MG/3 ML NEBULIZER IH PRN (05:42)
[2020-04-25] MEDS: Ascorbic Acid 500 MG TABLET PO SCH (08:29)
[2020-04-25] MEDS: predniSONE 20 MG TABLET PO SCH (08:29)
[2020-04-25] MEDS: *HR* OxyCODONE/APAP 5/325 TABLET PO PRN ×2 (08:29→21:23)
[2020-04-25] MEDS: Azithromycin 250 MG TABLET PO SCH (08:29)
[2020-04-25] MEDS: Cholecalciferol (D-3) 1,000 UNIT (25MCG) TABLET PO SCH (08:30)
[2020-04-25] MEDS: Levalbuterol Neb 1.25 MG/3 ML IH SCH ×5 (08:37→23:51)
[2020-04-25] MEDS: Budesonide/Formoterol 160/4.5 1 PUFF INH IH SCH ×2 (08:38→20:00)
[2020-04-25 11:31] LABS: Hematocrit 40.7 % (35.3-44.9); Hemoglobin 12.8 g/dL (11.5-15.4); Mean Corpuscular HGB Conc 31.4 g/dL (31.6-35.5); Mean Corpuscular Hemoglobin 25.2 pg (28.0-33.3); Mean Corpuscular Volume 80.1 fL (83.0-100.0); Mean Platelet Volume 10.5 fL (9.4-12.4); Platelet Count 298 K/mcL (140-400); Red Blood Count 5.08 M/mcL (3.82-4.97); Red Cell Distribution Width 15.4 % (11.5-14.5); White Blood Count 14.6 K/mcL (4.3-11.1)
[2020-04-25 11:49] LABS: BUN/Creatinine Ratio 32 (6-26); Blood Urea Nitrogen 20 mg/dL (8-23); Calcium 9.2 mg/dL (8.6-10.3); Carbon Dioxide 24 mEq/L (23-29); Chloride 104 mEq/L (98-107); Glucose 148 mg/dL (70-105); Osmolality,Calculated 287 (280-300); Potassium 4.6 mEq/L (3.5-5.1); Sodium 136 mEq/L (136-145); eGFR For African Americans > 60 (> 60); eGFR For Non-African Americans > 60 (> 60)
[2020-04-25] MEDS: Acetaminophen 325 MG TABLET PO PRN (14:49)
[2020-04-25] MEDS ORDERED: Ketorolac 15 MG/ML VIAL IVP ONE (14:52)
[2020-04-26] MEDS: Levalbuterol Neb 1.25 MG/3 ML IH SCH ×6 (03:32→23:19)
[2020-04-26] MEDS: *HR* Heparin 5,000 UNIT/ML VIAL SQ SCH ×2 (05:57→19:15)
[2020-04-26] MEDS: Budesonide/Formoterol 160/4.5 1 PUFF INH IH SCH ×2 (07:39→19:34)
[2020-04-26 07:44] LABS: Hematocrit 36.4 % (35.3-44.9); Hemoglobin 11.5 g/dL (11.5-15.4); Mean Corpuscular HGB Conc 31.6 g/dL (31.6-35.5); Mean Corpuscular Hemoglobin 25.4 pg (28.0-33.3); Mean Corpuscular Volume 80.5 fL (83.0-100.0); Mean Platelet Volume 10.3 fL (9.4-12.4); Platelet Count 283 K/mcL (140-400); Red Blood Count 4.52 M/mcL (3.82-4.97); Red Cell Distribution Width 15.7 % (11.5-14.5)
[2020-04-26 08:04] LABS: BUN/Creatinine Ratio 40 (6-26); Blood Urea Nitrogen 25 mg/dL (8-23); Calcium 8.4 mg/dL (8.6-10.3); Carbon Dioxide 26 mEq/L (23-29); Chloride 106 mEq/L (98-107); Glucose 107 mg/dL (70-105); Osmolality,Calculated 291 (280-300); Potassium 3.9 mEq/L (3.5-5.1); Sodium 138 mEq/L (136-145); eGFR For African Americans > 60 (> 60); eGFR For Non-African Americans > 60 (> 60)
[2020-04-26] MEDS: Cholecalciferol (D-3) 1,000 UNIT (25MCG) TABLET PO SCH (08:36)
[2020-04-26] MEDS: Azithromycin 250 MG TABLET PO SCH (08:37)
[2020-04-26] MEDS: Ascorbic Acid 500 MG TABLET PO SCH (08:37)
[2020-04-26] MEDS: predniSONE 20 MG TABLET PO SCH (08:37)
[2020-04-26] MEDS: *HR* OxyCODONE/APAP 5/325 TABLET PO PRN ×2 (08:42→19:15)
[2020-04-27] MEDS: Acetaminophen 325 MG TABLET PO PRN (03:28)
[2020-04-27] MEDS: Levalbuterol Neb 1.25 MG/3 ML IH SCH ×3 (03:35→11:56)
[2020-04-27 04:53] LABS: Hematocrit 38.7 % (35.3-44.9); Hemoglobin 12.2 g/dL (11.5-15.4); Mean Corpuscular HGB Conc 31.5 g/dL (31.6-35.5); Mean Corpuscular Hemoglobin 25.5 pg (28.0-33.3); Mean Platelet Volume 10.8 fL (9.4-12.4); Platelet Count 333 K/mcL (140-400); Red Blood Count 4.78 M/mcL (3.82-4.97); Red Cell Distribution Width 15.8 % (11.5-14.5); White Blood Count 13.7 K/mcL (4.3-11.1)
[2020-04-27 05:13] LABS: BUN/Creatinine Ratio 32 (6-26); Blood Urea Nitrogen 22 mg/dL (8-23); Calcium 9.1 mg/dL (8.6-10.3); Carbon Dioxide 28 mEq/L (23-29); Chloride 103 mEq/L (98-107); Glucose 129 mg/dL (70-105); Osmolality,Calculated 293 (280-300); Potassium 4.1 mEq/L (3.5-5.1); Sodium 139 mEq/L (136-145); eGFR For African Americans > 60 (> 60); eGFR For Non-African Americans > 60 (> 60)
[2020-04-27] MEDS: *HR* Heparin 5,000 UNIT/ML VIAL SQ SCH (06:11)
[2020-04-27 07:05] VITALS: BP 149/83
[2020-04-27] MEDS: Budesonide/Formoterol 160/4.5 1 PUFF INH IH SCH (08:02)
[2020-04-27] MEDS: *HR* OxyCODONE/APAP 5/325 TABLET PO PRN (08:57)
[2020-04-27] MEDS: Azithromycin 250 MG TABLET PO SCH (08:57)
[2020-04-27] MEDS: Ascorbic Acid 500 MG TABLET PO SCH (08:57)
[2020-04-27] MEDS: Cholecalciferol (D-3) 1,000 UNIT (25MCG) TABLET PO SCH (08:57)
[2020-04-27] MEDS: predniSONE 20 MG TABLET PO SCH (08:57)
== END 2020-04-27 14:39 | disposition home or self-care (01) | DRG 191 ==
LOC: EMEROOARM 11:31 → 3BNU 11:31
PROVIDERS: ADMIT Family Medicine; ATTEND Family Medicine